=== PATIENT | female | born 1955 | race Caucasian/White ===

== ENCOUNTER 2020-03-30 10:43 | Outpatient (REF) | payer MEDICARE, OTHER, SELFPAY ==
[2020-03-30 11:17] LABS: COVID-19 Test Negative (Negative)
== END 2020-03-30 10:44 | disposition home or self-care (01) ==
LOC: HO.LAB 10:43
PROVIDERS: PCP Internal Medicine; Visit Provider Internal Medicine
DX: Z20.828 Contact with and (suspected) exposure to other viral communicable diseases (principal)
CPT/HCPCS: 87635

== ENCOUNTER 2020-04-23 12:54 | Outpatient (REF) | payer MEDICARE, OTHER, SELFPAY | END 2020-04-23 12:55 | disposition home or self-care (01) | LOC: HO.LAB 12:54 | PROVIDERS: Visit Provider Internal Medicine | DX: Z20.828 Contact with and (suspected) exposure to other viral communicable diseases (principal) | CPT/HCPCS: C9803; U0003 ==

== ENCOUNTER 2020-04-30 16:37 | Inpatient (IN) | payer MEDICARE, OTHER, SELFPAY ==
[2020-04-30 16:46] VITALS: BP 143/72; BP 155/86; PULSE 88; PULSE 98; RESP 108; TEMP 38; O2SAT 92; O2SAT 95
--- NOTE | 2020-04-30 17:18 | CT_ITS ---
EXAMINATION: CT CHEST WITHOUT CONTRAST CLINICAL INFORMATION: Shortness of breath with Covid positive COMPARISON: CT chest 11/20/2015, chest radiograph 03/20/2019 TECHNIQUE: Multidetector volumetric CT imaging of the chest was done. Axial MIP volume rendering provided. Sagittal and coronal reformatted images were obtained. This CT examination was performed using dose optimization techniques as appropriate, variously including the following: *Automated exposure control *Adjustment of mA and/or kV according to patient size (this includes techniques or standardized protocols for targeted exams where dose is matched to indication/reason for exam; i.e. extremities or head) *Use of iterative reconstruction technique DLP: 247 mGy-cm FINDINGS: LUNGS: Scattered groundglass opacities are noted throughout the lungs typical of Covid 19 infection. No solid lung masses or nodules are seen. These findings are all new when compared to the prior study. MEDIASTINUM: The mediastinum is normal. PLEURA: There is no pleural effusion. No pleural mass or thickening. AXILLA: No lymphadenopathy. UPPER ABDOMEN: Unremarkable. OSSEOUS STRUCTURES: Unremarkable. 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
--- NOTE | 2020-04-30 17:19 | ECG_ITS ---
Test Reason : sob Blood Pressure : / mmHG Vent. Rate : 081 BPM Atrial Rate : 081 BPM P-R Int : 154 ms QRS Dur : 082 ms QT Int : 392 ms P-R-T Axes : 025 021 044 degrees QTc Int : 455 ms Normal sinus rhythm Possible Inferior infarct (cited on or before 12-SEP-2013) Nonspecific T wave abnormality Anterior leads Abnormal ECG When compared with ECG of 27-APR-2018 05:57, No significant change was found Referred By: Mireille Raza Electronically Signed By:GALLO OMER MD
[2020-04-30 17:21] VITALS: BP 139/66; PULSE 85; RESP 16; TEMP 38; O2SAT 93
--- NOTE | 2020-04-30 17:26 | ED.SOB ---
HPI - SOB/Dyspnea General Chief Complaint: Dyspnea Stated Complaint: INCREASED SOB, + COVID Time Seen by Provider: 04/30/20 17:18 Source: patient Mode of arrival: ambulatory Limitations: no limitations History of Present Illness HPI Narrative: 64-year-old female with past medical history of migraines, GERD, hyperlipidemia, insomnia, and depression presents with 10 days of cough, shortness of breath, Fevers, chills, sweating, and malaise. Her is currently admitted to ICU and is COVID-19 positive. she is short of breath and hypoxia on minimal exertion. she does have some chest pressure, but does not report any palpitations, abdominal pain, abdominal distention, dysuria, hematuria, and edema. MD elicited complaint: shortness of breath and cough Onset (ago): day(s) (10) Timing: constant Severity: moderate Exacerbating factors: exertion, movement, coughing and deep breaths Relieving factors: nothing Associated symptoms: fever, cough, wheezing, orthopnea, diaphoresis and chest congestion Treatment prior to arrival: bronchodilator Related Data Home oxygen amount: none Home Medications Medication Instructions Recorded Confirmed jxzvywqnci-fhdjhvsriuekh-tcyf 2 cap PO Q4-6H PRN 04/30/20 04/30/20 cyclobenzaprine 5 mg PO TID PRN 04/30/20 04/30/20 erenumab-aooe [Aimovig 140 mg SUBCUT QMONTH 04/30/20 04/30/20 Autoinjector] omeprazole 20 mg PO BID 04/30/20 04/30/20 pramipexole 1 mg PO DAILY 04/30/20 04/30/20 rosuvastatin 40 mg PO DAILY 04/30/20 04/30/20 venlafaxine 75 mg PO DAILY 04/30/20 04/30/20 Previous Rx's Medication Instructions Recorded zolpidem 6.25 mg tablet,extended 6.25 mg PO BEDTIME PRN #90 tab 04/26/20 release,multiphase Allergies Allergy/AdvReac Type Severity Reaction Status Date / Time adhesive [ADHESIVE] Allergy Intermediate RASH Verified 04/06/20 15:54 fluoxetine [Prozac] Allergy Unknown Unknown Verified 04/06/20 15:54 promethazine [Phenergan] Allergy Unknown Fell Verified 04/06/20 15:54 asleep x16hrs and woke up not knowing where she was diphenhydramine AdvReac Unknown MAKES HER Unverified 03/04/20 14:55 [From BENADRYL] EXCITED/HYPED UP Review of Systems Review of Systems: Constitutional: positive fever, chills, malaise, and diaphoresis ENT/Mouth: No Hoarseness, No sore throat, No Rhinorrhea Eyes: No Redness, No Discharge, No Vision Changes Cardiovascular: No Chest Pain, positive SOB, positive Dyspnea on Exertion, No Edema Respiratory: positive Cough, No Sputum, positive Wheezing, Gastrointestinal: No Nausea, No Vomiting, No Diarrhea, No abdominal Pain Genitourinary: No Dysuria, No Hematuria Musculoskeletal: No joint pain, No Myalgias Skin: No rash Neuro: No Weakness, No Numbness, No Headache Psych: No anxiety, depression Heme/Lymph: No Bruising, No Bleeding Endocrine: No Polyuria, No Polydipsia Yes all other systems are reviewed and are negative PMFSH Past Medical History Attestation statement: The following information was validated with the patient. Medical History Cataract High cholesterol Migraine Restless leg syndrome Seizure after head injury Surgical History H/O: hysterectomy Hx of spinal fusion Family History Family History Father Myocardial infarction Mother Depression HTN (hypertension) GERD (gastroesophageal reflux disease) FTT (failure to thrive) in adult Sister Alcoholism Lung cancer Daughter No problems noted. Daughter No problems noted. Brother No problems noted. Brother No problems noted. Brother No problems noted. Social History Social History Alcohol intake: current Alcohol intake frequency: holidays/special occasions only Alcohol type: wine Smoking Status: Never smoker Use of substances other than those prescribed or required for medical reasons: No Advance Directives: No Advance Directives Information Provided: Yes Physical Exam Vital Signs: Vital Signs: Last Vital Signs Temp 99.4 F 04/30/20 20:49 Pulse 84 04/30/20 20:49 Resp 19 04/30/20 20:49 BP 128/76 04/30/20 20:49 Pulse Ox 93 04/30/20 20:49 Body Mass Index 0.0 Appearance: Alert. Oriented X3. moderate distress. Head: Normal external exam. Normocephalic. Atraumatic. No [place] signs noted. No raccoon eyes noted Eyes: PERRLA. EOMI. Conjunctiva and sclera normal. Eyelids normal. ENT: TM's Normal. Pharynx normal. Uvula midline. Moist mucous membranes. No trismus noted. No drooling noted. No muffled voice noted. Neck: Normal inspection. Neck supple. No adenopathy. Thyroid Normal. No meningeal signs. No neck mass noted. CVS: Normal heart rate and rhythm. Heart sound normal. No murmurs noted. Pulses equal to all extremities. Respiratory: tachypneic. dry intermittent cough. Painless inspiration. Breath sounds wheezes and poor air flow to lower lobes. Chest nontender. Abdomen: Soft and nontender. Bowel sounds normal in all 4 quadrants. No distention noted. No organomegaly noted. No visible injury noted. Back: No CVA tenderness. Full range of motion noted. Skin: Skin warm and mild diaphoresis. Normal skin color. Normal skin turgor. No rashes/lesions/lacerations noted. Extremities: No lower extremity edema. Extremities exhibit normal range of motion. Extremities nontender. Neuro: cranial nerves 2-12 intact, no focal neural deficits, strength 5/5 to all extremities, No motor deficit. No sensory deficit. Reflexes normal. Course Course Course Narrative: 64-year-old female with past medical history of migraines, hyperlipidemia presents with 10 days of upper respiratory symptoms consistent with COVID-19. Her is COVID-19 positive, at time of admission she meets SIRS-sepsis criteria. She is febrile at 100.4, with a respiratory rate of 24 and is in orthoptic position. Reevaluation(s) Reevaluation #1: Patient meets sepsis criteria upon admission however this is suspected to be a viral illness and fluid resuscitation will be done gently because she has had multiple COVID-19 contacts, her is currently admitted in the ICU with COVID-19. There is extreme risk of fluid overload causing more harm than good at this time. Time: 17:28 Reevaluation #2: CT scan positive for bilateral pneumonia consistent with COVID-19. patient oxygen saturation decreases to mid to low 80s on ambulation or and minimal exertion. Plan of care is to admit to Intermediate care. Consultations Consultation #1: Valdemar Time: 20:00 MDM - SOB/Dyspnea Differential Diagnosis Differential diagnosis: Likely acute exacerbation of chronic obstructive airways disease and pneumonia Medical Records Attestation: I reviewed the patient's medical records. Lab Data Attestation: I reviewed the patient's lab results. Result diagrams: 04/30/20 19:14 04/30/20 18:35 Labs: Lab Results 04/30/20 04/30/20 04/30/20 Range/Units 18:34 18:35 18:35 WBC Cancelled RBC Cancelled Hgb Cancelled Hct Cancelled MCV Cancelled MCH Cancelled MCHC Cancelled RDW Cancelled Plt Count Cancelled MPV Cancelled Immature Gran % (Auto) Cancelled Neut % (Auto) Cancelled Lymph % (Auto) Cancelled [place] % (Auto) Cancelled Eos % (Auto) Cancelled Baso % (Auto) Cancelled Lymph # (Auto) Cancelled [place] # (Auto) Cancelled Eos # (Auto) Cancelled Baso # (Auto) Cancelled Abs Immat Gran (auto) Cancelled Absolute Neuts (auto) Cancelled Absolute Nucleated RBC Cancelled Nucleated RBC % (auto) Cancelled Sodium (135-145) mmol/L Potassium (3.3-5.1) mmol/l Chloride (96-108) mmol/L Carbon Dioxide (22-29) mmol/L Anion Gap (12-20) BUN (9-16) mg/dL Creatinine (0.5-1.4) mg/dL Estim Creat Clear Calc Estimated GFR Random Glucose (60-115) mg/dL Lactic Acid 0.6 (0.5-2.0) mmol/L Calcium (8.4-10.2) mg/dL Magnesium (1.6-2.6) mg/dL Troponin I High Sens (<3.5-17.0) ng/L B-Natriuretic Peptide (<100) pg/mL Urine Color YELLOW Urine Appearance CLEAR Urine pH 7.0 (5.0-8.0) Ur Specific [place] 1.010 (1.005-1.025) Urine Protein NEG (NEG-TRACE) MG/DL Urine Glucose (UA) NEG (NEG) MG/DL Urine Ketones NEG (NEG) MG/DL Urine Blood NEG (NEG) Urine Nitrite NEG (NEG) Ur Leukocyte Esterase NEG (NEG) Coronavirus (PCR) (Negative) Influenza Type A (PCR) (Negative) Influenza Type B (PCR) (Negative) RSV RNA Qual (PCR) (Negative) 04/30/20 04/30/20 04/30/20 Range/Units 18:35 18:35 18:35 WBC RBC Hgb Hct MCV MCH MCHC RDW Plt Count MPV Immature Gran % (Auto) Neut % (Auto) Lymph % (Auto) [place] % (Auto) Eos % (Auto) Baso % (Auto) Lymph # (Auto) [place] # (Auto) Eos # (Auto) Baso # (Auto) Abs Immat Gran (auto) Absolute Neuts (auto) Absolute Nucleated RBC Nucleated RBC % (auto) Sodium 142 (135-145) mmol/L Potassium 4.0 (3.3-5.1) mmol/l Chloride 112 H (96-108) mmol/L Carbon Dioxide 21 L (22-29) mmol/L Anion Gap 13 (12-20) BUN 12 (9-16) mg/dL Creatinine 0.68 (0.5-1.4) mg/dL Estim Creat Clear Calc 2.9 Estimated GFR > 60 Random Glucose 77 (60-115) mg/dL Lactic Acid (0.5-2.0) mmol/L Calcium 7.8 L (8.4-10.2) mg/dL Magnesium 1.7 (1.6-2.6) mg/dL Troponin I High Sens 3.5 (<3.5-17.0) ng/L B-Natriuretic Peptide 18 (<100) pg/mL Urine Color Urine Appearance Urine pH (5.0-8.0) Ur Specific [place] (1.005-1.025) Urine Protein (NEG-TRACE) MG/DL Urine Glucose (UA) (NEG) MG/DL Urine Ketones (NEG) MG/DL Urine Blood (NEG) Urine Nitrite (NEG) Ur Leukocyte Esterase (NEG) Coronavirus (PCR) (Negative) Influenza Type A (PCR) (Negative) Influenza Type B (PCR) (Negative) RSV RNA Qual (PCR) (Negative) 04/30/20 04/30/20 Range/Units 18:35 19:14 WBC 4.1 L RBC 4.24 Hgb 13.5 Hct 41.5 MCV 97.9 MCH 31.8 MCHC 32.5 RDW 12.4 Plt Count 120 L MPV 9.4 Immature Gran % (Auto) 0.2 Neut % (Auto) 76.1 H Lymph % (Auto) 19.1 L [place] % (Auto) 4.4 Eos % (Auto) 0.2 Baso % (Auto) 0.0 Lymph # (Auto) 0.8 L [place] # (Auto) 0.2 Eos # (Auto) 0.0 Baso # (Auto) 0.0 Abs Immat Gran (auto) 0.01 Absolute Neuts (auto) 3.1 Absolute Nucleated RBC 0.000 Nucleated RBC % (auto) 0.0 Sodium (135-145) mmol/L Potassium (3.3-5.1) mmol/l Chloride (96-108) mmol/L Carbon Dioxide (22-29) mmol/L Anion Gap (12-20) BUN (9-16) mg/dL Creatinine (0.5-1.4) mg/dL Estim Creat Clear Calc Estimated GFR Random Glucose (60-115) mg/dL Lactic Acid (0.5-2.0) mmol/L Calcium (8.4-10.2) mg/dL Magnesium (1.6-2.6) mg/dL Troponin I High Sens (<3.5-17.0) ng/L B-Natriuretic Peptide (<100) pg/mL Urine Color Urine Appearance Urine pH (5.0-8.0) Ur Specific [place] (1.005-1.025) Urine Protein (NEG-TRACE) MG/DL Urine Glucose (UA) (NEG) MG/DL Urine Ketones (NEG) MG/DL Urine Blood (NEG) Urine Nitrite (NEG) Ur Leukocyte Esterase (NEG) Coronavirus (PCR) POSITIVE A (Negative) Influenza Type A (PCR) NEGATIVE (Negative) Influenza Type B (PCR) NEGATIVE (Negative) RSV RNA Qual (PCR) NEGATIVE (Negative) Imaging Data CT scan - chest: Attestation: I personally reviewed and interpreted this imaging study as follows: Radiologist's impression: FINDINGS: LUNGS: Scattered groundglass opacities are noted throughout the lungs typical of Covid 19 infection. No solid lung masses or nodules are seen. These findings are all new when compared to the prior study. MEDIASTINUM: The mediastinum is normal. PLEURA: There is no pleural effusion. No pleural mass or thickening. AXILLA: No lymphadenopathy. UPPER ABDOMEN: Unremarkable. OSSEOUS STRUCTURES: Unremarkable. 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 ECG Data Attestation: I personally reviewed and interpreted this ECG as follows: ECG interpretation date: 04/30/20 ECG interpretation time: 18:45 Prior ECG tracings: available for review Interpretation: Vent. Rate : 081 BPM Atrial Rate : 081 BPM P-R Int : 154 ms QRS Dur : 082 ms QT Int : 392 ms P-R-T Axes : 025 021 044 degrees QTc Int : 455 ms Normal sinus rhythm Possible Inferior infarct (cited on or before 12-SEP-2013) Abnormal ECG When compared with ECG of 27-APR-2018 05:57, No significant change was found Critical Care Time Critical Care Time Critical Care Time: Yes Total Critical Care Time: 60 Attestation: I have personally provided critical care time exclusive of time spent on separately billable procedures. Time includes review of laboratory data, radiology results, discussion with consultants, and monitoring for potential decompensation. Interventions were performed as documented. Discharge Plan Discharge Clinical Impression: Hypoxia, COVID-19 Patient Disposition: Admitted As Inpatient
[2020-04-30 18:11] VITALS: BP 126/76; PULSE 83; RESP 25; TEMP 38; O2SAT 94
[2020-04-30] MEDS: Azithromycin 500 MG TABLET PO (18:58)
[2020-04-30] MEDS: methylPREDNISolone Sod Succ/PF 125 MG/2 ML VIAL IVPUSH (18:58)
[2020-04-30] MEDS: Acetaminophen 325 MG TABLET 975 MG PO (18:58)
[2020-04-30] MEDS: cefTRIAXone sodium 1 GM in 0.9 % Sodium Chloride 50 ML IV (18:58)
[2020-04-30] MEDS: 0.9 % Sodium Chloride 1,000 ML 999 ML IVCONT (18:59)
[2020-04-30 19:01] LABS: Glucose Urine UA NEG (NEG); Leukocyte Esterase Urine NEG (NEG); Nitrite Urine NEG (NEG); Urine Blood NEG (NEG); Urine Ketones NEG (NEG); Urine Protein NEG (NEG-TRACE)
[2020-04-30 19:02] LABS: Anion Gap 13 (12-20); Blood Urea Nitrogen 12 mg/dL (9-16); Calcium 7.8 mg/dL (8.4-10.2); Carbon Dioxide 21 mmol/L (22-29); Chloride 112 mmol/L (96-108); Creatinine Clr Calc Pharmacy 2.9; Estimated Glomerular Filt Rate > 60; Glucose Random 77 mg/dL (60-115); Sodium 142 mmol/L (135-145)
[2020-04-30 19:03] LABS: Magnesium 1.7 mg/dL (1.6-2.6)
[2020-04-30 19:07] LABS: Appearance Urine CLEAR; Color Urine YELLOW
[2020-04-30 19:07] LABS: Lactic Acid 0.6 mmol/L (0.5-2.0)
[2020-04-30 19:08] LABS: B Type Natriuretic Peptide 18 pg/mL (<100); Troponin-I High Sensitivity 3.5 ng/L (<3.5-17.0)
[2020-04-30 19:19] LABS: MANUAL DIFF FLAG NO
[2020-04-30 19:21] LABS: Eosinophils Percent Auto 0.2 % (0-4); Hematocrit 41.5 % (37-47); Hemoglobin 13.5 g/dl (12.0-16.0); Imm Gran Abs Auto 0.01 X10*3/uL (0.00-0.03); Imm Gran Pct Auto 0.2 % (0.0-0.4); Lymphocytes Absolute Auto 0.8 X10*3/uL (1.2-4.9); Lymphocytes Percent Auto 19.1 % (20-40); Mean Corpuscular HGB Conc 32.5 g/dl (31.0-35.0); Mean Corpuscular Hemoglobin 31.8 pg (27.0-33.0); Mean Corpuscular Volume 97.9 fL (80-98); Mean Platelet Volume 9.4 fL (9.4-12.3); Monocytes Absolute Auto 0.2 X10*3/uL (0.1-1.2); Monocytes Percent Auto 4.4 % (2-11); Neutrophils Absolute Auto 3.1 X10*3/uL (2.0-8.3); Neutrophils Percent Auto 76.1 % (45-73); Platelet Count 120 X10*3/uL (160-400); Red Blood Count 4.24 X10*6/uL (4.20-5.50); Red Cell Distribution Width 12.4 % (11.0-16.0); White Blood Count 4.1 X10*3/uL (4.8-10.8)
[2020-04-30 19:27] LABS: Influenza A PCR NEGATIVE (Negative); Influenza B PCR NEGATIVE (Negative); Resp Syncy Virus RNA Qual PCR NEGATIVE (Negative); SARS COV2 PCR INHOUSE POSITIVE (Negative)
[2020-04-30 20:49] VITALS: BP 128/76; PULSE 84; RESP 19; TEMP 37.4; O2SAT 93
[2020-05-01] VITALS (7 sets, daily range): BP systolic 118–142; BP diastolic 56–74; PULSE 76–84; RESP 16–18; TEMP 36.3–37; O2SAT 93–96; BMI 32.7
--- NOTE | 2020-05-01 00:26 | PC.NURSE ---
pt [id number] of a headache, feels like a migraine. pt points out that her right eyelid is closed, which usually happens when she has a migraine. pt has no other neuro defecit. pt took 2 of her fioricet that she had helen her for relief.
--- NOTE | 2020-05-01 01:01 | PC.NURSE ---
PT'S ROOM AIR SATURATION 93%, NON LABORED UNLESS SHE IS AMBULATORY. PT PLACED ON 1 LPM OXYGEN, REPORTS FEELING SHORT OF BREATH.
--- NOTE | 2020-05-01 01:40 | PC.NURSE ---
PT'S SPO2 IMPROVED TO 95% ON 1 LPM. PT'S HEADACHE AND EYELID DROOP ON RIGHT IMPROVED. PT FEELS BETTER WITH OXYGEN.
--- NOTE | 2020-05-01 02:07 | P.HPHOSP_ITS ---
History of Present Illness Date of Service: 04/30/20 Chief Complaint: SOB This is a 64-year-old female with past medical history of migraine, who presents to the hospital complaints of cough, generalized weakness, and dehydration. Patient reports that about a week ago she started developing a cough that has become so severe that she is getting back pain from it, generalized weakness, and loss of appetite. Patient's was diagnosed with COVID and is currently inpatient. She reports that she has also been hypoxic, satting between 87-94%. She has had chills with no fever, some nausea with no vomitin g, no abdominal pain, she also has diarrhea that started today, no constipation, no urinary symptoms. No lower extremity edema. patient is an ICU nurse here at [facility] On arrival to the ED hemodynamically stable but noted to have hypoxia on ambulation dropping to the high 80s, labs are significant for WBC count of 4.1 labs are significant for WBC count of 4.1, otherwise unremarkable. Patient is COVID positive. 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 Daughter No problems noted. Brother No problems noted. Brother No problems noted. Brother No problems noted. Surgical History H/O: hysterectomy Hx of spinal fusion Social History Household Members: Spouse Housing: House Do you presently have visiting nurse or other home services: No Alcohol intake: current Alcohol intake frequency: holidays/special occasions only Alcohol type: wine Smoking Status: Never smoker Use of substances other than those prescribed or required for medical reasons: No Have you been hit, kicked, punched, or otherwise hurt by someone within the past year? If so, by whom?: No Do you feel safe in your current relationship?: Yes Is there a partner from a previous relationship who is making you feel unsafe now?: No Are you made to feel afraid or neglected: No Advance Directives: No Advance Directives Information Provided: Yes Do you have thoughts of harming others: None Do you have a plan to hurt others: No Plan Recently lost weight without trying: No Meds Allergies Allergy/AdvReac Type Severity Reaction Status Date / Time adhesive [ADHESIVE] Allergy Intermediate RASH Verified 05/01/20 03:24 fluoxetine [Prozac] Allergy Unknown Unknown Verified 05/01/20 03:24 promethazine [Phenergan] Allergy Unknown Fell Verified 05/01/20 03:24 asleep x16hrs and woke up not knowing where she was diphenhydramine AdvReac Unknown MAKES HER Verified 05/01/20 03:24 [From BENADRYL] EXCITED/HYPED UP Home Medications Medication Instructions Recorded Confirmed Type amsnspdtwj-hlhqqcrfuremv-rvhs 2 cap PO Q4-6H PRN 04/30/20 05/01/20 History cyclobenzaprine 5 mg PO TID PRN 04/30/20 05/01/20 History erenumab-aooe [Aimovig 140 mg SUBCUT QMONTH 04/30/20 05/01/20 History Autoinjector] omeprazole 20 mg PO BID 04/30/20 05/01/20 History pramipexole 1 mg PO DAILY 04/30/20 05/01/20 History rosuvastatin 40 mg PO DAILY 04/30/20 05/01/20 History venlafaxine 75 mg PO DAILY 04/30/20 05/01/20 History Physical Exam Vital Signs and Narrative: Vital Signs: Last Vital Signs Temp 99.4 F 04/30/20 20:49 Pulse 80 05/01/20 00:23 Resp 16 05/01/20 00:23 BP 118/69 05/01/20 00:23 Pulse Ox 94 05/01/20 00:23 Body Mass Index 0.0 Const: General: cooperative and no acute distress Orientation/consciousness: patient oriented x3 Eyes: General: appearance normal, both eyes and all related structures Pupils: Equal, round and reactive pupils present Resp: Effort & Inspection: normal respiratory effort and able to speak in c omplete sentences Auscultation: rhonchi Cardio: Rate: regular rate Rhythm: regular rhythm GI: Palpation (GI): Soft to palpation Auscultation: normal bowel sounds Skin: General skin exam: no rashes or lesions noted Neuro: General: patient oriented x3 Cranial nerves: Yes Equal, round and reactive pupils present Cognition (Neuro): normal cognition Extrem: General: Yes normal to inspection and Yes no pedal edema Results Labs CBC and Chem 7: 04/30/20 19:14 04/30/20 18:35 Labs: Laboratory Results - last 24 hr 04/30/20 04/30/20 04/30/20 18:34 18:35 18:35 MCV Cancelled MCH Cancelled MCHC Cancelled RDW Cancelled Plt Count Cancelled MPV Cancelled Immature Gran % (Auto) Cancelled Neut % (Auto) Cancelled Lymph % (Auto) Cancelled [place] % (Auto) Cancelled Eos % (Auto) Cancelled Baso % (Auto) Cancelled Lymph # (Auto) Cancelled [place] # (Auto) Cancelled Eos # (Auto) Cancelled Baso # (Auto) Cancelled Abs Immat Gran (auto) Cancelled Absolute Neuts (auto) Cancelled Absolute Nucleated RBC Cancelled Nucleated RBC % (auto) Cancelled Anion Gap Estim Creat Clear Calc Estimated GFR Random Glucose Lactic Acid 0.6 Calcium Magnesium Troponin I High Sens B-Natriuretic Peptide Urine Color YELLOW Urine Appearance CLEAR Urine pH 7.0 Ur Specific [place] 1.010 Urine Protein NEG Urine Glucose (UA) NEG Urine Ketones NEG Urine Blood NEG Urine Nitrite NEG Ur Leukocyte Esterase NEG Coronavirus (PCR) Influenza Type A (PCR) Influenza Type B (PCR) RSV RNA Qual (PCR) 04/30/20 04/30/20 04/30/20 18:35 18:35 18:35 MCV MCH MCHC RDW Plt Count MPV Immature Gran % (Auto) Neut % (Auto) Lymph % (Auto) [place] % (Auto) Eos % (Auto) Baso % (Auto) Lymph # (Auto) [place] # (Auto) Eos # (Auto) Baso # (Auto) Abs Immat Gran (auto) Absolute Neuts (auto) Absolute Nucleated RBC Nucleated RBC % (auto) Anion Gap 13 Estim Creat Clear Calc 2.9 Estimated GFR > 60 Random Glucose 77 Lactic Acid Calcium 7.8 L Magnesium 1.7 Troponin I High Sens 3.5 B-Natriuretic Peptide 18 Urine Color Urine Appearance Urine pH Ur Specific [place] Urine Protein Urine Glucose (UA) Urine Ketones Urine Blood Urine Nitrite Ur Leukocyte Esterase Coronavirus (PCR) Influenza Type A (PCR) Influenza Type B (PCR) RSV RNA Qual (PCR) 04/30/20 04/30/20 18:35 19:14 MCV 97.9 MCH 31.8 MCHC 32.5 RDW 12.4 Plt Count 120 L MPV 9.4 Immature Gran % (Auto) 0.2 Neut % (Auto) 76.1 H Lymph % (Auto) 19.1 L [place] % (Auto) 4.4 Eos % (Auto) 0.2 Baso % (Auto) 0.0 Lymph # (Auto) 0.8 L [place] # (Auto) 0.2 Eos # (Auto) 0.0 Baso # (Auto) 0.0 Abs Immat Gran (auto) 0.01 Absolute Neuts (auto) 3.1 Absolute Nucleated RBC 0.000 Nucleated RBC % (auto) 0.0 Anion Gap Estim Creat Clear Calc Estimated GFR Random Glucose Lactic Acid Calcium Magnesium Troponin I High Sens B-Natriuretic Peptide Urine Color Urine Appearance Urine pH Ur Specific [place] Urine Protein Urine Glucose (UA) Urine Ketones Urine Blood Urine Nitrite Ur Leukocyte Esterase Coronavirus (PCR) POSITIVE A Influenza Type A (PCR) NEGATIVE Influenza Type B (PCR) NEGATIVE RSV RNA Qual (PCR) NEGATIVE Imaging Radiologist's Impressions: Impressions Chest CT 04/30/20 17:18 IMPRESSION: Scattered groundglass densities throughout both lungs typical of Covid 19 pulmonary disease. 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
[2020-05-01] MEDS: Enoxaparin Sodium 40 MG/0.4 ML SYRINGE SUBCUT (03:25)
[2020-05-01] MEDS: dexAMETHasone sod phosphate 4 MG/ML VIAL IVPUSH (03:25)
[2020-05-01] MEDS: ondansetron HCL 4 MG/2 ML VIAL IVPUSH (03:48)
[2020-05-01] MEDS: Omeprazole 20 MG CAPSULE.DR PO ×2 (06:25→15:30)
[2020-05-01] MEDS: dexAMETHasone sod phosphate 4 MG/ML VIAL 6 MG IVPUSH (08:17)
[2020-05-01] MEDS: 0.9 % Sodium Chloride Flush 3 ML SYRINGE IVFLUSH ×3 (08:18→21:09)
[2020-05-01] MEDS: Venlafaxine HCl ER 75 MG CAP.ER.24H PO (08:18)
[2020-05-01] MEDS: Pramipexole Di-HCL 1 MG TABLET PO (08:18)
--- NOTE | 2020-05-01 11:25 | P.PNIM_ITS ---
Subjective Subjective Date of Service: 05/01/20 Interval History: C/o dyspnea and cough. Tmax 100.4 yesterday evening. She is roomed with her , who is on HFNC + NRB. Physical Exam Vital Signs: Vital Signs: Last Vital Signs Temp 97.9 F 05/01/20 07:58 Pulse 81 05/01/20 07:58 Resp 18 05/01/20 07:58 BP 142/69 H 05/01/20 07:58 Pulse Ox 93 05/01/20 07:58 Body Mass Index 32.7 Gen: in no acute distress HEENT: sclera anicteric, moist mucus membranes Neck: supple Lungs: no respiratory distress, auscultation deferred due to COVID-19 Heart: normal peripheral pulses Abd: soft, non-tender, non-distended Ext: no cyanosis, clubbing, or edema Skin: warm/well-perfused Neuro: alert and oriented x3, no focal findings Psych: appropriate affect Objective Data Current Medications Generic Name Dose Route Start Last Admin Trade Name Freq PRN Reason Stop Dose Admin Acetaminophen 650 mg 05/01/20 02:50 Acetaminophen 325 Mg Tablet PO Q6H PRN Pain, Mild (Pain Scale 1-3) Acetaminophen/Butalbital/Caffeine 2 tab 05/01/20 03:59 05/01/20 10:43 Butalb/Acetamin/Caff 50/325/40 1 Tab Tablet PO 2 tab Q4H PRN Administration Headache Atorvastatin Calcium 80 mg 05/01/20 21:00 Atorvastatin Calcium 80 Mg Tablet PO BEDTIME ALYSHA Cyclobenzaprine HCl 5 mg 05/01/20 03:59 Cyclobenzaprine Hcl 5 Mg Tablet PO TID PRN Muscle Spasm Dexamethasone Sodium Phosphate 6 mg 05/01/20 09:00 05/01/20 08:17 Dexamethasone Sod Phosphate 4 Mg/Ml Vial IVPUSH 05/09/20 09:01 6 mg DAILY ALYSHA Administration Enoxaparin Sodium 40 mg 05/01/20 02:50 05/01/20 03:25 Enoxaparin Sodium 40 Mg/0.4 Ml Syringe SUBCUT 40 mg Q24H ALYSHA Administration Non-Formulary Medication 140 mg 05/01/20 04:00 Erenumab-Aooe [Aimovig Autoinjector] SUBCUT QMONTH ALYSHA Omeprazole 20 mg 05/01/20 06:30 05/01/20 06:25 Omeprazole 20 Mg Capsule. PO 20 mg BID@1656,6584 ALYSHA Administration Ondansetron HCl 4 mg 05/01/20 02:50 05/01/20 03:48 Ondansetron Hcl 4 Mg/2 Ml Vial IVPUSH 4 mg Q8H PRN Administration Nausea and Vomiting Oxycodone HCl 5 mg 05/01/20 02:50 Oxycodone Hcl Immed Release 5 Mg Tablet PO Q6H PRN Pain, Severe (Pain Scale 7-10) Pharmacy Consult 1 each 04/30/20 23:36 Consult Rx Perform Med Rec MISCELLANE ONCE PRN Consult order Pramipexole Dihydrochloride 1 mg 05/01/20 09:00 05/01/20 08:18 Pramipexole Di-Hcl 1 Mg Tablet PO 1 mg DAILY ALYSHA Administration Sodium Chloride 3 ml 05/01/20 08:00 05/01/20 08:18 0.9 % Sodium Chloride Flush 3 Ml Syringe IVFLUSH 3 ml QSHIFT ALYSHA Administration Venlafaxine HCl 75 mg 05/01/20 09:00 05/01/20 08:18 Venlafaxine Hcl Er 75 Mg Cap.Er.24h PO 75 mg DAILY ALYSHA Administration Zolpidem Tartrate 5 mg 05/01/20 04:10 Zolpidem Tartrate 5 Mg Tablet PO BEDTIME PRN Sleep Labs CBC & Chem 7: 04/30/20 19:14 04/30/20 18:35 Labs: Laboratory Results - last 24 hr 04/30/20 04/30/20 04/30/20 18:34 18:35 18:35 WBC Cancelled RBC Cancelled Hgb Cancelled Hct Cancelled MCV Cancelled MCH Cancelled MCHC Cancelled RDW Cancelled Plt Count Cancelled MPV Cancelled Immature Gran % (Auto) Cancelled Neut % (Auto) Cancelled Lymph % (Auto) Cancelled Dane % (Auto) Cancelled Eos % (Auto) Cancelled Baso % (Auto) Cancelled Lymph # (Auto) Cancelled Dane # (Auto) Cancelled Eos # (Auto) Cancelled Baso # (Auto) Cancelled Abs Immat Gran (auto) Cancelled Absolute Neuts (auto) Cancelled Absolute Nucleated RBC Cancelled Nucleated RBC % (auto) Cancelled Sodium Potassium Chloride Carbon Dioxide Anion Gap BUN Creatinine Estim Creat Clear Calc Estimated GFR Random Glucose Lactic Acid 0.6 Calcium Magnesium Troponin I High Sens B-Natriuretic Peptide Urine Color YELLOW Urine Appearance CLEAR Urine pH 7.0 Ur Specific [place] 1.010 Urine Protein NEG Urine Glucose (UA) NEG Urine Ketones NEG Urine Blood NEG Urine Nitrite NEG Ur Leukocyte Esterase NEG Coronavirus (PCR) Influenza Type A (PCR) Influenza Type B (PCR) RSV RNA Qual (PCR) 04/30/20 04/30/20 04/30/20 18:35 18:35 18:35 WBC RBC Hgb Hct MCV MCH MCHC RDW Plt Count MPV Immature Gran % (Auto) Neut % (Auto) Lymph % (Auto) Dane % (Auto) Eos % (Auto) Baso % (Auto) Lymph # (Auto) Dane # (Auto) Eos # (Auto) Baso # (Auto) Abs Immat Gran (auto) Absolute Neuts (auto) Absolute Nucleated RBC Nucleated RBC % (auto) Sodium 142 Potassium 4.0 Chloride 112 H Carbon Dioxide 21 L Anion Gap 13 BUN 12 Creatinine 0.68 Estim Creat Clear Calc 2.9 Estimated GFR > 60 Random Glucose 77 Lactic Acid Calcium 7.8 L Magnesium 1.7 Troponin I High Sens 3.5 B-Natriuretic Peptide 18 Urine Color Urine Appearance Urine pH Ur Specific [place] Urine Protein Urine Glucose (UA) Urine Ketones Urine Blood Urine Nitrite Ur Leukocyte Esterase Coronavirus (PCR) Influenza Type A (PCR) Influenza Type B (PCR) RSV RNA Qual (PCR) 04/30/20 04/30/20 18:35 19:14 WBC 4.1 L RBC 4.24 Hgb 13.5 Hct 41.5 MCV 97.9 MCH 31.8 MCHC 32.5 RDW 12.4 Plt Count 120 L MPV 9.4 Immature Gran % (Auto) 0.2 Neut % (Auto) 76.1 H Lymph % (Auto) 19.1 L Dane % (Auto) 4.4 Eos % (Auto) 0.2 Baso % (Auto) 0.0 Lymph # (Auto) 0.8 L Dane # (Auto) 0.2 Eos # (Auto) 0.0 Baso # (Auto) 0.0 Abs Immat Gran (auto) 0.01 Absolute Neuts (auto) 3.1 Absolute Nucleated RBC 0.000 Nucleated RBC % (auto) 0.0 Sodium Potassium Chloride Carbon Dioxide Anion Gap BUN Creatinine Estim Creat Clear Calc Estimated GFR Random Glucose Lactic Acid Calcium Magnesium Troponin I High Sens B-Natriuretic Peptide Urine Color Urine Appearance Urine pH Ur Specific [place] Urine Protein Urine Glucose (UA) Urine Ketones Urine Blood Urine Nitrite Ur Leukocyte Esterase Coronavirus (PCR) POSITIVE A Influenza Type A (PCR) NEGATIVE Influenza Type B (PCR) NEGATIVE RSV RNA Qual (PCR) NEGATIVE Impressions Chest CT 04/30/20 17:18 IMPRESSION: Scattered groundglass densities throughout both lungs typical of Covid 19 pulmonary disease. Assessment and Plan (1) COVID-19: Status: Acute (2) Hypoxia: Status: Acute Assessment and Plan: hospital d#1 64yo F admitted for hypoxia from COVID-19 pneumonia # COVID-19 pneumonia - dexamethasone d#06/27, trend inflammatory markers, maintain isolation # acute hypoxic respiratory failure - supplemental O2, wean as tolerated, encouraged self-proning # migraines - prn Fioricet. on Aimovig SQ injection as outpt # GERD - omeprazole # RLS - pramipexole # HLD - continue statin # depression - continue venlafaxine, zolpidem # VTE ppx - LMWH
[2020-05-01] MEDS: HYDROcodone/Homat 5/1.5/5 ML 5 ML SYRUP PO ×2 (15:30→21:08)
--- NOTE | 2020-05-01 15:48 | MHC.CM.PN ---
CM attempted to contact pt on her cell phone ([phone]). Call went to . Message left requesting a return call. Per pt records, she lives at home with her and is independent at baseline. Pt has no in home services. Pt does have a HCP however it is her who is also inpatient at this time. CM will completed [employer]ULT [employer] using EMR and try to contact pt again tomorrow.
[2020-05-01] MEDS: Acetaminophen 325 MG TABLET 650 MG PO (21:07)
[2020-05-01] MEDS: Atorvastatin Calcium 80 MG TABLET PO (21:08)
[2020-05-01] MEDS: Zolpidem Tartrate 5 MG TABLET PO (21:08)
[2020-05-02] VITALS: BP 111/62; PULSE 71; RESP 18; TEMP 36.2; O2SAT 91
[2020-05-02 03:21] VITALS: BP 125/61; PULSE 70; RESP 18; TEMP 36.1; O2SAT 94
[2020-05-02] MEDS: Enoxaparin Sodium 40 MG/0.4 ML SYRINGE SUBCUT (03:52)
[2020-05-02] MEDS: Acetaminophen 325 MG TABLET 650 MG PO (03:53)
[2020-05-02 05:25] LABS: MANUAL DIFF FLAG NO
[2020-05-02 05:28] LABS: Basophils Percent Auto 0.1 % (0-2); Hematocrit 41.5 % (37-47); Hemoglobin 13.8 g/dl (12.0-16.0); Imm Gran Abs Auto 0.05 X10*3/uL (0.00-0.03); Imm Gran Pct Auto 0.5 % (0.0-0.4); Lymphocytes Absolute Auto 1.1 X10*3/uL (1.2-4.9); Lymphocytes Percent Auto 11.7 % (20-40); Mean Corpuscular HGB Conc 33.3 g/dl (31.0-35.0); Mean Corpuscular Hemoglobin 32.1 pg (27.0-33.0); Mean Corpuscular Volume 96.5 fL (80-98); Mean Platelet Volume 9.4 fL (9.4-12.3); Monocytes Absolute Auto 0.3 X10*3/uL (0.1-1.2); Neutrophils Absolute Auto 7.9 X10*3/uL (2.0-8.3); Neutrophils Percent Auto 84.7 % (45-73); Platelet Count 179 X10*3/uL (160-400); Red Cell Distribution Width 12.3 % (11.0-16.0); White Blood Count 9.4 X10*3/uL (4.8-10.8)
[2020-05-02 05:37] LABS: D Dimer 442 NG/ML
[2020-05-02 05:53] LABS: Anion Gap 11 (12-20); Blood Urea Nitrogen 16 mg/dL (9-16); Calcium 8.4 mg/dL (8.4-10.2); Carbon Dioxide 23 mmol/L (22-29); Chloride 112 mmol/L (96-108); Creatinine Clr Calc Pharmacy 75.2; Estimated Glomerular Filt Rate > 60; Glucose Random 122 mg/dL (60-115); Potassium 3.8 mmol/l (3.3-5.1); Sodium 142 mmol/L (135-145)
[2020-05-02 05:54] LABS: C Reactive Protein 0.75 mg/dL (< or = 0.50); Lactate Dehydrogenase 248 U/L (122-220)
[2020-05-02 06:11] LABS: Procalcitonin 0.06 ng/mL
[2020-05-02 06:16] LABS: Ferritin 155 ng/mL (10-250)
[2020-05-02] MEDS: Omeprazole 20 MG CAPSULE.DR PO ×2 (06:18→15:18)
[2020-05-02] MEDS: Venlafaxine HCl ER 75 MG CAP.ER.24H PO (07:33)
[2020-05-02] MEDS: Pramipexole Di-HCL 1 MG TABLET PO (07:33)
[2020-05-02] MEDS: dexAMETHasone sod phosphate 4 MG/ML VIAL 6 MG IVPUSH (07:33)
[2020-05-02] MEDS: 0.9 % Sodium Chloride Flush 3 ML SYRINGE IVFLUSH ×3 (07:33→21:23)
[2020-05-02 07:38] VITALS: BP 126/77; PULSE 74; RESP 18; TEMP 36.5; O2SAT 95
[2020-05-02] MEDS: oxyCODONE HCl Immed Release 5 MG TABLET PO ×2 (07:43→15:18)
--- NOTE | 2020-05-02 12:22 | P.PNIM_ITS ---
Subjective Subjective Date of Service: 05/02/20 Interval History: dyspnea and cough improved afebrile Physical Exam Vital Signs: Vital Signs: Last Vital Signs Temp 97.7 F 05/02/20 07:38 Pulse 74 05/02/20 07:38 Resp 18 05/02/20 07:38 BP 126/77 05/02/20 07:38 Pulse Ox 95 05/02/20 07:38 Body Mass Index 32.7 Gen: in no acute distress HEENT: sclera anicteric, moist mucus membranes Neck: supple Lungs: no respiratory distress, auscultation deferred due to COVID-19 Heart: normal peripheral pulses Abd: soft, non-tender, non-distended Ext: no cyanosis, clubbing, or edema Skin: warm/well-perfused Neuro: alert and oriented x3, no focal findings Psych: appropriate affect Objective Data Current Medications Generic Name Dose Route Start Last Admin Trade Name Freq PRN Reason Stop Dose Admin Acetaminophen 650 mg 05/01/20 02:50 05/02/20 03:53 Acetaminophen 325 Mg Tablet PO 650 mg Q6H PRN Administration Pain, Mild (Pain Scale 1-3) Acetaminophen/Butalbital/Caffeine 2 tab 05/01/20 03:59 05/01/20 10:43 Butalb/Acetamin/Caff 50/325/40 1 Tab Tablet PO 2 tab Q4H PRN Administration Headache Atorvastatin Calcium 80 mg 05/01/20 21:00 05/01/20 21:08 Atorvastatin Calcium 80 Mg Tablet PO 80 mg BEDTIME ALYSHA Administration Cyclobenzaprine HCl 5 mg 05/01/20 03:59 Cyclobenzaprine Hcl 5 Mg Tablet PO TID PRN Muscle Spasm Dexamethasone Sodium Phosphate 6 mg 05/01/20 09:00 05/02/20 07:33 Dexamethasone Sod Phosphate 4 Mg/Ml Vial IVPUSH 05/09/20 09:01 6 mg DAILY ALYSHA Administration Enoxaparin Sodium 40 mg 05/01/20 02:50 05/02/20 03:52 Enoxaparin Sodium 40 Mg/0.4 Ml Syringe SUBCUT 40 mg Q24H ALYSHA Administration Hydrocodone Bit/Homatropine Methylb 5 ml 05/01/20 15:07 05/01/20 21:08 Hydrocodone/Homat 5/1.5/5 Ml 5 Ml Syrup PO 5 ml Q4H PRN Administration cough Non-Formulary Medication 140 mg 05/01/20 04:00 Erenumab-Aooe [Aimovig Autoinjector] SUBCUT QMONTH [facility] Omeprazole 20 mg 05/01/20 06:30 05/02/20 06:18 Omeprazole 20 Mg Capsule.Dr PO 20 mg BID@0630,1630 ALYSHA Administration Ondansetron HCl 4 mg 05/01/20 02:50 05/01/20 03:48 Ondansetron Hcl 4 Mg/2 Ml Vial IVPUSH 4 mg Q8H PRN Administration Nausea and Vomiting Oxycodone HCl 5 mg 05/01/20 02:50 05/02/20 07:43 Oxycodone Hcl Immed Release 5 Mg Tablet PO 5 mg Q6H PRN Administration Pain, Severe (Pain Scale 7-10) Pharmacy Consult 1 each 04/30/20 23:36 Consult Rx Perform Med Rec MISCELLANE ONCE PRN Consult order Pramipexole Dihydrochloride 1 mg 05/01/20 09:00 05/02/20 07:33 Pramipexole Di-Hcl 1 Mg Tablet PO 1 mg DAILY [facility] Administration Sodium Chloride 3 ml 05/01/20 08:00 05/02/20 07:33 0.9 % Sodium Chloride Flush 3 Ml Syringe IVFLUSH 3 ml QSHIFT [facility] Administration Venlafaxine HCl 75 mg 05/01/20 09:00 05/02/20 07:33 Venlafaxine Hcl Er 75 Mg Cap.Er.24h PO 75 mg DAILY [facility] Administration Zolpidem Tartrate 5 mg 05/01/20 04:10 05/01/20 21:08 Zolpidem Tartrate 5 Mg Tablet PO 5 mg BEDTIME PRN Administration Sleep Labs CBC & Chem 7: 05/02/20 04:50 05/02/20 04:50 Labs: Laboratory Results - last 24 hr 05/02/20 05/02/20 05/02/20 04:50 04:50 04:50 WBC 9.4 RBC 4.30 Hgb 13.8 Hct 41.5 MCV 96.5 MCH 32.1 MCHC 33.3 RDW 12.3 Plt Count 179 D MPV 9.4 Immature Gran % (Auto) 0.5 H Neut % (Auto) 84.7 H Lymph % (Auto) 11.7 L [place] % (Auto) 3.0 Eos % (Auto) 0.0 Baso % (Auto) 0.1 Lymph # (Auto) 1.1 L [place] # (Auto) 0.3 Eos # (Auto) 0.0 Baso # (Auto) 0.0 Abs Immat Gran (auto) 0.05 H Absolute Neuts (auto) 7.9 Absolute Nucleated RBC 0.000 Nucleated RBC % (auto) 0.0 D-Dimer 442 Sodium 142 Potassium 3.8 Chloride 112 H Carbon Dioxide 23 Anion Gap 11 L BUN 16 Creatinine 0.67 Estim Creat Clear Calc 75.2 Estimated GFR > 60 Random Glucose 122 H D Calcium 8.4 D Ferritin Lactate Dehydrogenase C-Reactive Protein Procalcitonin 05/02/20 05/02/20 04:50 04:50 WBC RBC Hgb Hct MCV MCH MCHC RDW Plt Count MPV Immature Gran % (Auto) Neut % (Auto) Lymph % (Auto) [place] % (Auto) Eos % (Auto) Baso % (Auto) Lymph # (Auto) [place] # (Auto) Eos # (Auto) Baso # (Auto) Abs Immat Gran (auto) Absolute Neuts (auto) Absolute Nucleated RBC Nucleated RBC % (auto) D-Dimer Sodium Potassium Chloride Carbon Dioxide Anion Gap BUN Creatinine Estim Creat Clear Calc Estimated GFR Random Glucose Calcium Ferritin 155 Lactate Dehydrogenase 248 H C-Reactive Protein 0.75 H Procalcitonin 0.06 Microbiology Microbiology Results: Microbiology 04/30/20 18:35 Blood - Venous Blood Culture - Preliminary No growth after 24 hours. 04/30/20 18:35 Blood - Venous Blood Culture - Preliminary No growth after 24 hours. Assessment and Plan (1) COVID-19: Status: Acute (2) Hypoxia: Status: Acute Assessment and Plan: hospital d#2 64yo F admitted for hypoxia from COVID-19 pneumonia # COVID-19 pneumonia - dexamethasone d#07/28, trend inflammatory markers, maintain isolation # acute hypoxic respiratory failure - supplemental O2, wean as tolerated, encouraged self-proning # migraines - prn Fioricet. on Aimovig SQ injection as outpt # GERD - omeprazole # RLS - pramipexole # HLD - continue statin # depression - continue venlafaxine, zolpidem # VTE ppx - LMWH # dispo - may require home O2, eval in am
[2020-05-02 15:06] VITALS: BP 111/61; PULSE 61; RESP 19; TEMP 36; O2SAT 95
--- NOTE | 2020-05-02 15:34 | MHC.CM.PN ---
CM SPOKE TO PT VIA T/C ([phone]). PT REPORTS IT IS JUST HER AND HER AT HOME AND THAT SHE IS INDEPENDENT WITH ALL CARE AND MOBILITY. PT REPORTS SHE DOES NOT USE DME AND SHE DOES NOT HAVE SERVICES. PT CONFIRMS [facility] ANN HER PCP AND SHE HAS A HCP ON FILE. IMM DELIVERED CURRENT DC PLAN IS HOME WITH NO SERVICES. PT IS UNSURE ABOUT TRANSPORTATION HOME DUE TO HER COVID (+) STATUS. PTS IS CURRENTLY INPATIENT WELL AND HER DAUGHTER IS COVID (-). PT MAY NEED CM ASSISTANCE.
[2020-05-02] MEDS: HYDROcodone/Homat 5/1.5/5 ML 5 ML SYRUP PO (17:00)
[2020-05-02 19:17] VITALS: BP 135/68; PULSE 64; RESP 19; TEMP 36; O2SAT 93
[2020-05-02] MEDS: Atorvastatin Calcium 80 MG TABLET PO (21:22)
[2020-05-02 23:29] VITALS: BP 122/58; PULSE 59; RESP 18; TEMP 36.8; O2SAT 93
[2020-05-03] MEDS: HYDROcodone/Homat 5/1.5/5 ML 5 ML SYRUP PO ×2 (02:10→21:08)
[2020-05-03] MEDS: Enoxaparin Sodium 40 MG/0.4 ML SYRINGE SUBCUT (02:11)
[2020-05-03] MEDS: Omeprazole 20 MG CAPSULE.DR PO ×2 (05:30→16:40)
[2020-05-03] MEDS: oxyCODONE HCl Immed Release 5 MG TABLET PO (05:42)
[2020-05-03 06:37] LABS: MANUAL DIFF FLAG NO
[2020-05-03 06:57] LABS: Basophils Percent Auto 0.1 % (0-2); Hematocrit 42.9 % (37-47); Hemoglobin 13.7 g/dl (12.0-16.0); Imm Gran Abs Auto 0.11 X10*3/uL (0.00-0.03); Imm Gran Pct Auto 1.1 % (0.0-0.4); Lymphocytes Absolute Auto 1.2 X10*3/uL (1.2-4.9); Lymphocytes Percent Auto 12.1 % (20-40); Mean Corpuscular HGB Conc 31.9 g/dl (31.0-35.0); Mean Corpuscular Hemoglobin 31.4 pg (27.0-33.0); Mean Corpuscular Volume 98.2 fL (80-98); Mean Platelet Volume 9.3 fL (9.4-12.3); Monocytes Absolute Auto 0.3 X10*3/uL (0.1-1.2); Neutrophils Absolute Auto 8.5 X10*3/uL (2.0-8.3); Neutrophils Percent Auto 83.7 % (45-73); Platelet Count 186 X10*3/uL (160-400); Red Blood Count 4.37 X10*6/uL (4.20-5.50); Red Cell Distribution Width 12.4 % (11.0-16.0); White Blood Count 10.1 X10*3/uL (4.8-10.8)
[2020-05-03 07:14] LABS: Anion Gap 13 (12-20); Blood Urea Nitrogen 18 mg/dL (9-16); Calcium 8.3 mg/dL (8.4-10.2); Carbon Dioxide 24 mmol/L (22-29); Chloride 110 mmol/L (96-108); Creatinine Clr Calc Pharmacy 75.2; Estimated Glomerular Filt Rate > 60; Glucose Random 80 mg/dL (60-115); Potassium 3.5 mmol/l (3.3-5.1); Sodium 143 mmol/L (135-145)
[2020-05-03 08:10] VITALS: BP 142/67; PULSE 76; RESP 18; TEMP 37.4; O2SAT 95
[2020-05-03] MEDS: 0.9 % Sodium Chloride Flush 3 ML SYRINGE IVFLUSH ×3 (09:36→21:02)
[2020-05-03] MEDS: dexAMETHasone sod phosphate 4 MG/ML VIAL 6 MG IVPUSH (09:40)
[2020-05-03] MEDS: Pramipexole Di-HCL 1 MG TABLET PO (09:41)
[2020-05-03] MEDS: Venlafaxine HCl ER 75 MG CAP.ER.24H PO (09:41)
[2020-05-03 10:57] VITALS: BP 147/67; PULSE 80; RESP 18; TEMP 37.4; O2SAT 93
--- NOTE | 2020-05-03 11:20 | MHC.CM.PN ---
DP Home no services. Pt may need assist with transportation. CM will follow.
[2020-05-03 12:09] VITALS: BMI 32.7
--- NOTE | 2020-05-03 15:14 | PC.NURSE ---
PT GIVEN PERMISSION TO SHOWER PER MD. TELEPACK ABLE TO BE REMOVED UNTIL SHOWER IS COMPLETE PER MD.
[2020-05-03 16:01] VITALS: BP 140/66; PULSE 77; RESP 20; TEMP 36.2; O2SAT 93
--- NOTE | 2020-05-03 17:04 | P.PNIM_ITS ---
Subjective Subjective Date of Service: 05/03/20 Interval History: Patient seen and examined at bedside Patient still reporting shortness of breath and cough Constitutional Constitutional: Reports weakness Cardiovascular Cardiovascular: Reports dyspnea Respiratory Respiratory: Reports dyspnea Gastrointestinal Gastrointestinal: Reports nausea and Reports vomiting Neurologic Neurologic: Reports weakness Physical Exam Vital Signs: Vital Signs: Last Vital Signs Temp 97.2 F 05/03/20 16:01 Pulse 77 05/03/20 16:01 Resp 20 05/03/20 16:01 BP 140/66 H 05/03/20 16:01 Pulse Ox 93 05/03/20 16:01 Body Mass Index 32.7 Const: Other: Last Vital Signs Temp 97.2 F 05/03/20 16:01 Pulse 77 05/03/20 16:01 Resp 20 05/03/20 16:01 BP 140/66 H 05/03/20 16:01 Pulse Ox 93 05/03/20 16:01 Body Mass Index 32.7 General: cooperative and no acute distress Orientation/consciousness: mariah ent oriented x3 Eyes: General: appearance normal, both eyes and all related structures Pupils: Equal, round and reactive pupils present Resp: Effort & Inspection: normal respiratory effort and able to speak in complete sentences Auscultation: rhonchi Cardio: Other: Last Vital Signs Temp 97.2 F 05/03/20 16:01 Pulse 77 05/03/20 16:01 Resp 20 05/03/20 16:01 BP 140/66 H 05/03/20 16:01 Pulse Ox 93 05/03/20 16:01 Body Mass Index 32.7 Jugular venous distension: no JVD Rate: regular rate Rhythm: regular rhythm GI: Palpation (GI): Soft to palpation Auscultation: normal bowel sounds Skin: General skin exam: no rashes or lesions noted Neuro: General: patient oriented x3 Cranial nerves: Yes Equal, round and reactive pupils present Cognition (Neuro): normal cognition Extrem: General: Yes normal to inspection and Yes no pedal edema Objective Data Current Medications Generic Name Dose Route Start Last Admin Trade Name Freq PRN Reason Stop Dose Admin Acetaminophen 650 mg 05/01/20 02:50 05/02/20 03:53 Acetaminophen 325 Mg Tablet PO 650 mg Q6H PRN Administration Pain, Mild (Pain Scale 1-3) Acetaminophen/Butalbital/Caffeine 2 tab 05/01/20 03:59 05/02/20 21:22 Butalb/Acetamin/Caff 50/325/40 1 Tab Tablet PO 2 tab Q4H PRN Administration Headache Atorvastatin Calcium 80 mg 05/01/20 21:00 05/02/20 21:22 Atorvastatin Calcium 80 Mg Tablet PO 80 mg BEDTIME ALYSHA Administration Cyclobenzaprine HCl 5 mg 05/01/20 03:59 Cyclobenzaprine Hcl 5 Mg Tablet PO TID PRN Muscle Spasm Dexamethasone Sodium Phosphate 6 mg 05/01/20 09:00 05/03/20 09:40 Dexamethasone Sod Phosphate 4 Mg/Ml Vial IVPUSH 05/09/20 09:01 6 mg DAILY ALYSHA Administration Enoxaparin Sodium 40 mg 05/01/20 02:50 05/03/20 02:11 Enoxaparin Sodium 40 Mg/0.4 Ml Syringe SUBCUT 40 mg Q24H ALYSHA Administration Hydrocodone Bit/Homatropine Methylb 5 ml 05/01/20 15:07 05/03/20 02:10 Hydrocodone/Homat 5/1.5/5 Ml 5 Ml Syrup PO 5 ml Q4H PRN Administration cough Non-Formulary Medication 140 mg 05/01/20 04:00 Erenumab-Aooe [Aimovig Autoinjector] SUBCUT QMONTH ALYSHA Omeprazole 20 mg 05/01/20 06:30 05/03/20 16:40 Omeprazole 20 Mg Capsule.Dr PO 20 mg BID@0630,6310 ALYSHA Administration Ondansetron HCl 4 mg 05/01/20 02:50 05/01/20 03:48 Ondansetron Hcl 4 Mg/2 Ml Vial IVPUSH 4 mg Q8H PRN Administration Nausea and Vomiting Oxycodone HCl 5 mg 05/01/20 02:50 05/03/20 05:42 Oxycodone Hcl Immed Release 5 Mg Tablet PO 5 mg Q6H PRN Administration Pain, Severe (Pain Scale 7-10) Pharmacy Consult 1 each 04/30/20 23:36 Consult Rx Perform Med Rec MISCELLANE ONCE PRN Consult order Pramipexole Dihydrochloride 1 mg 05/01/20 09:00 05/03/20 09:41 Pramipexole Di-Hcl 1 Mg Tablet PO 1 mg DAILY ALYSHA Administration Sodium Chloride 3 ml 05/01/20 08:00 05/03/20 16:40 0.9 % Sodium Chloride Flush 3 Ml Syringe IVFLUSH 3 ml QSHIFT ALYSHA Administration Venlafaxine HCl 75 mg 05/01/20 09:00 05/03/20 09:41 Venlafaxine Hcl Er 75 Mg Cap.Er.24h PO 75 mg DAILY ALYSHA Administration Zolpidem Tartrate 5 mg 05/01/20 04:10 05/01/20 21:08 Zolpidem Tartrate 5 Mg Tablet PO 5 mg BEDTIME PRN Administration Sleep Labs CBC & Chem 7: 05/03/20 06:10 05/03/20 06:10 Microbiology Microbiology Results: Microbiology 04/30/20 18:35 Blood - Venous Blood Culture - Preliminary No growth after 48 hours. 04/30/20 18:35 Blood - Venous Blood Culture - Preliminary No growth after 48 hours. Assessment and Plan (1) High cholesterol: Status: Acute (2) Restless leg syndrome: Status: Acute (3) Pneumonia due to COVID-19 virus: Status: Acute (4) Hypoxia: Status: Acute Assessment and Plan: hospital d#2 64yo F admitted for hypoxia from COVID-19 pneumonia COVID-19 pneumonia continue dexamethasone d#3/10, trend inflammatory markers, maintain isolation Acute hypoxic respiratory failure continuesupplemental O2, wean as tolerated, encouraged self-proning Migraines continue prn Fioricet. on Aimovig SQ injection as outpt GERD continue omeprazole RLS continue pramipexole HLD continue statin Depression continue venlafaxine, zolpidem VTE ppx continue LMWH (5) COVID-19: Status: Acute (6) Migraine: Status: Acute
[2020-05-03 19:29] VITALS: BP 128/67; PULSE 71; RESP 20; TEMP 37; O2SAT 95
[2020-05-03] MEDS: Atorvastatin Calcium 80 MG TABLET PO (21:02)
[2020-05-03 23:41] VITALS: BP 119/57; PULSE 56; RESP 18; TEMP 37.1; O2SAT 90
[2020-05-04 03:34] VITALS: BP 119/63; PULSE 56; RESP 18; TEMP 36.9; O2SAT 94
[2020-05-04] MEDS: Omeprazole 20 MG CAPSULE.DR PO (04:44)
[2020-05-04] MEDS: Enoxaparin Sodium 40 MG/0.4 ML SYRINGE SUBCUT (04:44)
[2020-05-04] MEDS: HYDROcodone/Homat 5/1.5/5 ML 5 ML SYRUP PO (06:04)
[2020-05-04 07:54] VITALS: BP 125/67; PULSE 67; RESP 20; TEMP 36.4; O2SAT 94
[2020-05-04] MEDS: dexAMETHasone sod phosphate 4 MG/ML VIAL 6 MG IVPUSH (07:54)
[2020-05-04] MEDS: 0.9 % Sodium Chloride Flush 3 ML SYRINGE IVFLUSH (07:54)
[2020-05-04] MEDS: Pramipexole Di-HCL 1 MG TABLET PO (07:55)
[2020-05-04] MEDS: Venlafaxine HCl ER 75 MG CAP.ER.24H PO (07:55)
[2020-05-04 11:13] VITALS: BP 143/76; PULSE 83; RESP 20; TEMP 36.8; O2SAT 91
--- NOTE | 2020-05-04 11:51 | MHC.CM.PN ---
Patient has been medically cleared for dc to home today, no services. Second IMM addressed.
--- NOTE | 2020-06-07 16:55 | P.DS_ITS ---
DS: Providers Provider Date of admission: 05/01/20 02:04 Primary care physician: Unknown Physician DS: Diagnosis Discharge Diagnosis (1) High cholesterol: Status: Deleted (2) Restless leg syndrome: Status: Acute (3) Pneumonia due to COVID-19 virus: Status: Resolved (4) Hypoxia: Status: Resolved (5) COVID-19: Status: Resolved (6) Migraine: Status: Acute DS: Medications Discharge Medications Home Medications: Home Medications Medication Instructions Recorded Confirmed Aimovig Autoinjector 140 mg SUBCUT QMONTH 04/30/20 05/20/20 jsvhqzpgoh-nvbojqppfxjlg-bijr 2 cap PO Q4-6H PRN 04/30/20 05/20/20 omeprazole 20 mg PO BID 04/30/20 05/20/20 pramipexole 1 mg PO DAILY 04/30/20 05/20/20 rosuvastatin 40 mg PO DAILY 04/30/20 05/20/20 venlafaxine 75 mg PO DAILY 04/30/20 05/20/20 erenumab-aooe 70 mg/mL mg SUBCUT 05/20/20 05/20/20 subcutaneous auto-injector flu vacc (65yr ml IM 05/20/20 05/20/20 up)-MF59C(PF) 60 mcg(15 mcgx4)/0.5 mL IM syringe propranolol 20 mg tablet 20 mg PO BID 05/20/20 05/20/20 tizanidine 2 mg tablet 2 mg PO TID 05/20/20 05/20/20 topiramate 50 mg tablet 50 mg PO BID 05/20/20 05/20/20 Previous Rx's Medication Instructions Recorded zolpidem 6.25 mg tablet,extended 6.25 mg PO BEDTIME PRN #90 tab 04/26/20 release,multiphase dexamethasone 6 mg PO DAILY #5 tab 05/04/20 clonazepam 0.5 mg tablet 0.25 mg PO BID PRN #30 tab 05/20/20 DS: Summary Hospital Course Hospital Course: date of service 05/04/2020 HPI 64-year-old female with past medical history of migraine, who presents to the hospital complaints of cough, generalized weakness, and dehydration. Patient reports that about a week ago she started developing a cough that has become so severe that she is getting back pain from it, generalized weakness, and loss of appetite. Patient's was diagnosed with COVID and is currently inpatient. She reports that she has also been hypoxic, satting between 87-94%. She has had chills with no fever, some nausea with no vomiting, no abdominal pain, she also has diarrhea that started today, no constipation, no urinary symptoms. No lower extremity edema. patient is an ICU nurse here at [facility] On arrival to the ED hemodynamically stable but noted to have hypoxia on ambulation dropping to the high 80s, labs are significant for WBC count of 4.1 labs are significant for WBC count of 4.1, otherwise unremarkable. Patient is COVID positive. CT chest shows scattered ground-glass densities throughout both lungs typical COVID-19 infection past medical history: Migraine, hyperlipidemia, restless leg syndrome, depression, hospital course 64 y o f f admitted with covid pneumonia and acute hypoxic respiratory failu restarted on supportive management and oxygen supplementation,patient recieved dexamathasone , patient was weaned off from oxygen ,patient was staurating well on room air , patient was stable discharged home. Time Spent with Patient Time attestation: Total time spent providing and/or coordinating discharge services: Physical Exam Vital Signs: Vital Signs: Last Vital Signs Temp 98.2 F 05/04/20 11:13 Pulse 83 05/04/20 11:13 Resp 20 05/04/20 11:13 BP 143/76 H 05/04/20 11:13 Pulse Ox 91 L 05/04/20 11:13 Body Mass Index 32.7 DS: Data Data Completed and Pending Labs on day of discharge: 04/30/20 17:18 CT chest wo con Stat Acetaminophen [Tylenol] 975 mg PO ONCE ONE Azithromycin [Zithromax] 500 mg PO ONCE ONE methylPREDNISolone Sod Succ/PF [SOLU-MedroL] 125 mg IVPUSH ONCE ONE 04/30/20 17:19 ECG 12 lead EKG Stat Continuous Cardiac Monitoring NOW EKG Documentation DIRECTED IV insert/maintain NOW Oxygen administration Nasal Cannula 2 lpm 04/30/20 17:30 0.9 % Sodium Chloride [Ns] 1,000 ml IVCONT 999 mls/hr cefTRIAXone sodium [Rocephin] 1 gm 0.9 % Sodium Chloride [Ns] 50 ml IV ONCE 04/30/20 18:34 UA CC w/rflx Micro + Cult Stat 04/30/20 18:35 B Type Natriuretic Peptide Stat Basic Metabolic Panel Stat Lactic Acid Stat Magnesium Stat SARS-CoV2/FLU/RSV Stat Troponin-I High Sensitivity Stat Blood Culture X2 [BC] Stat 04/30/20 18:54 cefTRIAXone sodium [Rocephin] 1 gm .ROUTE .STK-MED ONE 04/30/20 19:14 Complete Blood Count Auto Diff Stat 04/30/20 23:36 Consult Rx Perform Med Rec 1 each MISCELLANE ONCE PRN 05/01/20 00:21 Code Status Routine Transfer Order Routine 05/01/20 02:50 Acetaminophen [Tylenol] 650 mg PO Q6H PRN Enoxaparin Sodium [Lovenox] 40 mg SUBCUT Q24H dexAMETHasone sod phosphate [Decadron] 4 mg IVPUSH DAILY ONE ondansetron HCL [Zofran] 4 mg IVPUSH Q8H PRN oxyCODONE HCl Immed Release [Roxicodone] 5 mg PO Q6H PRN 05/01/20 02:50 Ambulate QSHIFT WHILE AWAKE IV insert/maintain Q4HR Intake and Output Q8HR Vital Signs Q4HR 05/01/20 03:59 Butalb/Acetamin/Caff 50/325/40 [Fioricet] 2 tab PO Q4H PRN Cyclobenzaprine HCl [Flexeril] 5 mg PO TID PRN 05/01/20 04:00 erenumab-aooe [Aimovig Autoinjector] 140 mg SUBCUT QMONTH 05/01/20 04:10 Zolpidem Tartrate [Ambien] 5 mg PO BEDTIME PRN 05/01/20 06:30 Omeprazole [PriLOSEC] 20 mg PO BID@0630,1630 05/01/20 08:00 0.9 % Sodium Chloride Flush [NS Flush] 3 ml IVFLUSH QSHIFT 05/01/20 09:00 Pramipexole Di-HCL [Mirapex] 1 mg PO DAILY Venlafaxine HCl ER [Effexor XR] 75 mg PO DAILY dexAMETHasone sod phosphate [Decadron] 6 mg IVPUSH DAILY 05/01/20 09:41 Continuous Cardiac Monitoring NOW 05/01/20 15:07 HYDROcodone/Homat 5/1.5/5 ML [Hydromet 5/1.5/5 ML] 5 ml PO Q4H PRN 05/01/20 21:00 Atorvastatin Calcium [Lipitor] 80 mg PO BEDTIME 05/02/20 04:50 Basic Metabolic Panel Routine C Reactive Protein Routine Complete Blood Count Auto Diff Routine D Dimer Routine Ferritin Routine Lactate Dehydrogenase Routine Procalcitonin Routine 05/03/20 06:10 Basic Metabolic Panel Routine Complete Blood Count Auto Diff Routine 05/03/20 06:24 RT Home Oxygen Evaluation CONT 05/03/20 07:51 Airborne/Contact Precautions ONGOING Laboratory Last Values WBC 10.1 X10*3/uL (4.8-10.8) 05/03/20 06:10 RBC 4.37 X10*6/uL (4.20-5.50) 05/03/20 06:10 Hgb 13.7 g/dl (12.0-16.0) 05/03/20 06:10 Hct 42.9 % (37-47) 05/03/20 06:10 MCV 98.2 fL (80-98) H 05/03/20 06:10 MCH 31.4 pg (27.0-33.0) 05/03/20 06:10 MCHC 31.9 g/dl (31.0-35.0) 05/03/20 06:10 RDW 12.4 % (11.0-16.0) 05/03/20 06:10 Plt Count 186 X10*3/uL (160-400) 05/03/20 06:10 MPV 9.3 fL (9.4-12.3) L 05/03/20 06:10 Immature Gran % (Auto) 1.1 % (0.0-0.4) H 05/03/20 06:10 Neut % (Auto) 83.7 % (45-73) H 05/03/20 06:10 Lymph % (Auto) 12.1 % (20-40) L 05/03/20 06:10 [place] % (Auto) 3.0 % (2-11) 05/03/20 06:10 Eos % (Auto) 0.0 % (0-4) 05/03/20 06:10 Baso % (Auto) 0.1 % (0-2) 05/03/20 06:10 Lymph # (Auto) 1.2 X10*3/uL (1.2-4.9) 05/03/20 06:10 [place] # (Auto) 0.3 X10*3/uL (0.1-1.2) 05/03/20 06:10 Eos # (Auto) 0.0 X10*3/uL (0.0-0.4) 05/03/20 06:10 Baso # (Auto) 0.0 X10*3/uL (0.0-0.2) 05/03/20 06:10 Abs Immat Gran (auto) 0.11 X10*3/uL (0.00-0.03) H 05/03/20 06:10 Absolute Neuts (auto) 8.5 X10*3/uL (2.0-8.3) H 05/03/20 06:10 Absolute Nucleated RBC 0.000 X10*3/uL (0.0-0.012) 05/03/20 06:10 Nucleated RBC % (auto) 0.0 /100WBC (0.0-0.2) 05/03/20 06:10 D-Dimer 442 NG/ML 05/02/20 04:50 Sodium 143 mmol/L (135-145) 05/03/20 06:10 Potassium 3.5 mmol/l (3.3-5.1) 05/03/20 06:10 Chloride 110 mmol/L (96-108) H 05/03/20 06:10 Carbon Dioxide 24 mmol/L (22-29) 05/03/20 06:10 Anion Gap 13 (12-20) 05/03/20 06:10 BUN 18 mg/dL (9-16) H 05/03/20 06:10 Creatinine 0.67 mg/dL (0.5-1.4) 05/03/20 06:10 Estim Creat Clear Calc 75.2 05/03/20 06:10 Estimated GFR > 60 05/03/20 06:10 Random Glucose 80 mg/dL (60-115) 05/03/20 06:10 Lactic Acid 0.6 mmol/L (0.5-2.0) 04/30/20 18:35 Calcium 8.3 mg/dL (8.4-10.2) L 05/03/20 06:10 Magnesium 1.7 mg/dL (1.6-2.6) 04/30/20 18:35 Ferritin 155 ng/mL (10-250) 05/02/20 04:50 Lactate Dehydrogenase 248 U/L (122-220) H 05/02/20 04:50 Troponin I High Sens 3.5 ng/L (<3.5-17.0) 04/30/20 18:35 C-Reactive Protein 0.75 mg/dL (< or = 0.50) H 05/02/20 04:50 B-Natriuretic Peptide 18 pg/mL (<100) 04/30/20 18:35 Procalcitonin 0.06 ng/mL 05/02/20 04:50 Urine Color YELLOW 04/30/20 18:34 Urine Appearance CLEAR 04/30/20 18:34 Urine pH 7.0 (5.0-8.0) 04/30/20 18:34 Ur Specific [place] 1.010 (1.005-1.025) 04/30/20 18:34 Urine Protein NEG MG/DL (NEG-TRACE) 04/30/20 18:34 Urine Glucose (UA) NEG MG/DL (NEG) 04/30/20 18:34 Urine Ketones NEG MG/DL (NEG) 04/30/20 18:34 Urine Blood NEG (NEG) 04/30/20 18:34 Urine Nitrite NEG (NEG) 04/30/20 18:34 Ur Leukocyte Esterase NEG (NEG) 04/30/20 18:34 Coronavirus (PCR) POSITIVE (Negative) A 04/30/20 18:35 Influenza Type A (PCR) NEGATIVE (Negative) 04/30/20 18:35 Influenza Type B (PCR) NEGATIVE (Negative) 04/30/20 18:35 RSV RNA Qual (PCR) NEGATIVE (Negative) 04/30/20 18:35 Discharge Plan Discharge Anticipated Discharge Date/Time: 05/04/20 11:24 Patient Disposition: Home, Self-Care Referrals: Physician,Unknown [Primary Care Provider] - Discharge Medications: New dexamethasone 6 mg tablet 6 mg PO DAILY Qty: 5 RF: 0 Continued zolpidem 6.25 mg tablet,ext release multiphase 6.25 mg PO BEDTIME PRN (Reason: insomnia) Qty: 90 RF: 0 pramipexole 1 mg Tablet 1 mg PO DAILY RF: 0 qbradfpuir-dndeinmheokea-kwgp 50-325-40 mg Capsule 2 cap PO Q4-6H PRN (Reason: Headache) RF: 0 venlafaxine 75 mg Capsule,Extended Release 24hr 75 mg PO DAILY RF: 0 omeprazole 20 mg Capsule,Delayed Release(Dr/Ec) 20 mg PO BID RF: 0 rosuvastatin 40 mg Tablet 40 mg PO DAILY RF: 0 Aimovig Autoinjector 140 mg/mL Auto-Injector 140 mg SUBCUT QMONTH RF: 0 No Action Fluad Quad 2020-(65y up)(PF) 60 mcg (15 mcg x 4)/0.5 mL syringe IM RF: 0 topiramate 50 mg tablet 50 mg PO BID RF: 0 Aimovig Autoinjector 70 mg/mL auto-injector subcut RF: 0 propranolol 20 mg tablet 20 mg PO BID RF: 0 tizanidine 2 mg tablet 2 mg PO TID RF: 0 clonazepam 0.5 mg tablet 0.25 mg PO BID PRN (Reason: Acute anxiety) Qty: 30 RF: 0 Discharge Orders: Discharge Order (Routine); Ordered 05/04/20 Ordered By: Renard Chery Diet: advance to usual diet Activity on Discharge: As tolerated Discharge Date/Time: 05/04/20 15:11 Visit Report Forms: Patient Portal Discharge page Care Plan Goals: treat covid Health Concerns: covid pneumonia Plan of Treatment: po prednisone
== END 2020-05-04 15:11 | disposition home or self-care (01) | DRG 177 ==
LOC: HO.ED 23:22 → HO.IMC 05-01 02:08
PROVIDERS: Family Medicine; Nurse Practitioner Family; Admitting Provider Internal Medicine; Emergency Provider Emergency Medicine; Visit Provider Internal Medicine
DX: U07.1 COVID-19 (principal); J12.89 Other viral pneumonia; J96.01 Acute respiratory failure with hypoxia; G43.909 Migraine, unspecified, not intractable, without status migrainosus; E78.5 Hyperlipidemia, unspecified; G25.81 Restless legs syndrome; K21.9 Gastro-esophageal reflux disease without esophagitis; F32.9 Major depressive disorder, single episode, unspecified; Z79.899 Other long term (current) drug therapy
CPT/HCPCS: 0241U; 36415; 71250; 80048; 81003; 82728; 83605; 83615; 83735; 83880; 84145; 84484; 85025; 85379; 86140; 87040; 93005; 96365; 96375; 99285; 99291; J0696; J1100; J1650; J2405; J2930

== ENCOUNTER 2020-06-18 18:04 | Emergency (ER) | payer MEDICARE, OTHER, SELFPAY ==
[2020-06-18 18:09] VITALS: BP 139/88; PULSE 105; RESP 22; O2SAT 96; BMI 29.2
--- NOTE | 2020-06-18 18:15 | ED.GENADULT ---
HPI - General Adult General Chief complaint: General Medical Stated complaint: trouble swallowing,chest pain Time Seen by Provider: 06/18/20 18:14 Source: patient Mode of arrival: ambulatory History of Present Illness HPI narrative: 64-year-old female with a past medical history of migraines, hyperlipidemia, restless leg syndrome, depression, COVID-19 s/p admission to our hospital for COVID-19 pneumonia/hypoxic respiratory failure discharged on 06/07, c/o esophageal spasm x 30 minutes s/p eating a pork chop. Reports associated nausea and 4 episodes of emesis, but denies feeling like something is stuck in throat. Admits to substernal chest pain, and mild SOB. States glucagon usually works for her as has had similar symptoms in the past. Denies cough, fever, chills, abdominal pain Onset (ago): minute(s) Related Data Home Medications Medication Instructions Recorded Confirmed Aimovig Autoinjector 140 mg SUBCUT QMONTH 04/30/20 05/20/20 tgsdgjtolr-naecxmuteacer-wgqh 2 cap PO Q4-6H PRN 04/30/20 05/20/20 omeprazole 20 mg PO BID 04/30/20 05/20/20 pramipexole 1 mg PO DAILY 04/30/20 05/20/20 rosuvastatin 40 mg PO DAILY 04/30/20 05/20/20 venlafaxine 75 mg PO DAILY 04/30/20 05/20/20 erenumab-aooe 70 mg/mL mg SUBCUT 05/20/20 05/20/20 subcutaneous auto-injector flu vacc 2020-21(65yr ml IM 05/20/20 05/20/20 up)-MF59C(PF) 60 mcg(15 mcgx4)/0.5 mL IM syringe propranolol 20 mg tablet 20 mg PO BID 05/20/20 05/20/20 tizanidine 2 mg tablet 2 mg PO TID 05/20/20 05/20/20 topiramate 50 mg tablet 50 mg PO BID 05/20/20 05/20/20 Previous Rx's Medication Instructions Recorded zolpidem 6.25 mg tablet,extended 6.25 mg PO BEDTIME PRN #90 tab 04/26/20 release,multiphase dexamethasone 6 mg PO DAILY #5 tab 05/04/20 clonazepam 0.5 mg tablet 0.25 mg PO BID PRN #30 tab 05/20/20 nitroglycerin 0.4 mg SUBLINGUAL Q10M PRN #7 tab 06/18/20 Allergies Allergy/AdvReac Type Severity Reaction Status Date / Time adhesive [ADHESIVE] Allergy Intermediate RASH Verified 05/20/20 14:19 diphenhydramine AdvReac Unknown MAKES HER Verified 05/20/20 14:19 [From BENADRYL] EXCITED/HYPED UP promethazine [Phenergan] AdvReac Unknown Fell Verified 05/20/20 14:19 asleep x16hrs and woke up not knowing where she was Review of Systems Review of Systems: Constitutional: No Weight loss, No Fever, No Chills ENT/Mouth: No Hoarseness, No sore throat Eyes: No Eye Pain, No Swelling, No Redness, No Foreign Body, No Discharge, No Vision Changes Cardiovascular: + Chest Pain, +SOB, No Dyspnea on Exertion Respiratory: No Cough, No Sputum Gastrointestinal: + Nausea, + Vomiting, No Diarrhea, No Constipation, No Abdominal pain Genitourinary: No irregular bleeding, No Dysuria, No Urinary Frequency, No Hematuria Musculoskeletal: No joint pain, No Myalgias, No Joint Swelling Skin: No Skin Lesions, No rash Yes all other systems are reviewed and are negative [facility] Past Medical History Attestation statement: The following information was validated with the patient. Medical History Cataract Lumbar disc herniation Migraine Mixed dyslipidemia Post laminectomy syndrome Restless leg syndrome Seizure after head injury Surgical History H/O: hysterectomy Hx of spinal fusion Family History Family History Father Myocardial infarction Mother Depression HTN (hypertension) GERD (gastroesophageal reflux disease) FTT (failure to thrive) in adult Sister Alcoholism Lung cancer Daughter No problems noted. Daughter No problems noted. Brother No problems noted. Brother No problems noted. Brother No problems noted. Social History Social History Household Members: Spouse Housing: House Alcohol intake: never Smoking Status: Never smoker Use of substances other than those prescribed or required for medical reasons: No Advance Directives: No Advance Directives Information Provided: Yes service: No Current occupational status: retired Physical Exam Vital Signs: Vital Signs: Last Vital Signs Temp 97.6 F 06/18/20 21:43 Pulse 80 06/18/20 21:43 Resp 20 06/18/20 21:43 BP 120/60 06/18/20 21:43 Pulse Ox 94 06/18/20 21:43 Body Mass Index 29.2 Const: General: cooperative and healthy appearing Orientation/consciousness: patient oriented x3 Limitations: no limitations HENMT: Head: Yes normal to inspection Ears: hearing grossly normal bilaterally General nose exam: Normal external nose present Face and sinus: Yes normal facial exam Mouth: Normal oral and palatal mucosa present Throat: Yes posterior oropharynx normal, Yes uvula midline and No peritonsillar mass Eyes: General: appearance normal, both eyes and all related structures EOM: EOMs intact bilaterally Neck: Neck: Yes normal visual inspection Chest: Chest palpation & inspection: normal inspection of the chest Resp: Effort & Inspection: normal respiratory effort, no stridor and tachypneic Auscultation: clear to auscultation bilaterally, no crackles, no rales and no rhonchi Cardio: Rate: regular rate Heart sounds: S1 normal heart sound present and S2 normal heart sound present GI: Inspection: Yes normal to inspection Palpation (GI): Soft to palpation, nontender, no guarding and not rigid Skin: Rashes: no rashes Wounds: no wounds Neuro: General: patient oriented x3 Gait exam (Neuro): Normal gait present Extrem: General: Yes normal to inspection Course Course Course Narrative: 2124-- patient with minimal relief after glucagon > will try SL Nitro and reassess EKG with nonspecific T wave inversions, no STEMI AST/ALT chronically elevated, initial troponin negative > will obtain 3hr repeat 2014- pain resolved after Nitro, but patient reports migraine MENDEZ now 2225--repeat troponin equivocal. Patient reports symptomatic resolution. Worrisome signs and symptoms and strict return precautions discussed. Patient requesting prescription for nitroglycerin, was sent to pharmacy. Admits she has follow-up with her GI doctor at the end of the month Medical Decision Making [facility] Narrative Medical decision making narrative: 64-year-old female with a past medical history of migraines, hyperlipidemia, restless leg syndrome, depression, COVID-19 s/p admission to our hospital for COVID-19 pneumonia/hypoxic respiratory failure discharged on 06/07, c/o esophageal spasm x30 minutes s/p eating a pork chop. On exam mildly tachycardic, tachynpeic, coughing/dry heaving on exam. Concern for esophageal spasm vs food bolus vs ACS. Low concern for PE/PNA or COVID19 Plan: EKG, labs, Glucagon, Zofran, IVF, Reassess Lab Data Result diagrams: 06/18/20 18:49 06/18/20 18:49 Labs: Lab Results 06/18/20 06/18/20 06/18/20 Range/Units 18:49 18:49 18:49 WBC 6.1 (4.8-10.8) X10*3/uL RBC 4.99 (4.20-5.50) X10*6/uL Hgb 16.1 H (12.0-16.0) g/dl Hct 48.4 H (37-47) % MCV 97.0 (80-98) fL MCH 32.3 (27.0-33.0) pg MCHC 33.3 (31.0-35.0) g/dl RDW 12.4 (11.0-16.0) % Plt Count 213 (160-400) X10*3/uL MPV 9.0 L (9.4-12.3) fL Immature Gran % (Auto) 0.2 (0.0-0.4) % Neut % (Auto) 59.6 (45-73) % Lymph % (Auto) 28.9 (20-40) % [place] % (Auto) 6.8 (2-11) % Eos % (Auto) 3.5 (0-4) % Baso % (Auto) 1.0 (0-2) % Lymph # (Auto) 1.8 (1.2-4.9) X10*3/uL [place] # (Auto) 0.4 (0.1-1.2) X10*3/uL Eos # (Auto) 0.2 (0.0-0.4) X10*3/uL Baso # (Auto) 0.1 (0.0-0.2) X10*3/uL Abs Immat Gran (auto) 0.01 (0.00-0.03) X10*3/uL Absolute Neuts (auto) 3.6 (2.0-8.3) X10*3/uL Absolute Nucleated RBC 0.000 (0.0-0.012) X10*3/uL Nucleated RBC % (auto) 0.0 (0.0-0.2) /100WBC Sodium 142 (135-145) mmol/L Potassium 3.7 (3.3-5.1) mmol/l Chloride 109 H (96-108) mmol/L Carbon Dioxide 21 L (22-29) mmol/L Anion Gap 16 (12-20) BUN 16 (9-16) mg/dL Creatinine 0.64 (0.5-1.4) mg/dL Estim Creat Clear Calc 83.7 Estimated GFR > 60 Random Glucose 96 (60-115) mg/dL Calcium 9.3 D (8.4-10.2) mg/dL Magnesium 1.8 (1.6-2.6) mg/dL Total Bilirubin 0.4 (0.0-1.0) mg/dL Direct Bilirubin 0.2 (0.0-0.5) mg/dL AST 57 H (5-31) U/L ALT 63 H (0-31) U/L Alkaline Phosphatase 118 H (39-117) U/L Troponin I High Sens < 3.5 (<3.5-17.0) ng/L Total Protein 7.4 (6.5-8.0) g/dL Albumin 4.8 (3.5-5.0) g/dL Lipase 32 (8-78) U/L 06/18/20 Range/Units 21:42 WBC (4.8-10.8) X10*3/uL RBC (4.20-5.50) X10*6/uL Hgb (12.0-16.0) g/dl Hct (37-47) % MCV (80-98) fL MCH (27.0-33.0) pg MCHC (31.0-35.0) g/dl RDW (11.0-16.0) % Plt Count (160-400) X10*3/uL MPV (9.4-12.3) fL Immature Gran % (Auto) (0.0-0.4) % Neut % (Auto) (45-73) % Lymph % (Auto) (20-40) % [place] % (Auto) (2-11) % Eos % (Auto) (0-4) % Baso % (Auto) (0-2) % Lymph # (Auto) (1.2-4.9) X10*3/uL [place] # (Auto) (0.1-1.2) X10*3/uL Eos # (Auto) (0.0-0.4) X10*3/uL Baso # (Auto) (0.0-0.2) X10*3/uL Abs Immat Gran (auto) (0.00-0.03) X10*3/uL Absolute Neuts (auto) (2.0-8.3) X10*3/uL Absolute Nucleated RBC (0.0-0.012) X10*3/uL Nucleated RBC % (auto) (0.0-0.2) /100WBC Sodium (135-145) mmol/L Potassium (3.3-5.1) mmol/l Chloride (96-108) mmol/L Carbon Dioxide (22-29) mmol/L Anion Gap (12-20) BUN (9-16) mg/dL Creatinine (0.5-1.4) mg/dL Estim Creat Clear Calc Estimated GFR Random Glucose (60-115) mg/dL Calcium (8.4-10.2) mg/dL Magnesium (1.6-2.6) mg/dL Total Bilirubin (0.0-1.0) mg/dL Direct Bilirubin (0.0-0.5) mg/dL AST (5-31) U/L ALT (0-31) U/L Alkaline Phosphatase (39-117) U/L Troponin I High Sens < 3.5 (<3.5-17.0) ng/L Total Protein (6.5-8.0) g/dL Albumin (3.5-5.0) g/dL Lipase (8-78) U/L Discharge Plan Discharge Clinical Impression: Esophageal spasm Patient Disposition: Home, Self-Care Instructions: Esophageal Spasm (ED) Additional Instructions: Your blood work was reassuring today in the ED follow up with your PCP and GI doctor Take Nitroglycerin at home only when needed for esophageal spasms if your symptoms persist or worsen, you have constant or worsening chest pain or shortness of breath or fever return to the ED Prescriptions: New nitroglycerin 0.4 mg tablet, sublingual 0.4 mg sublingual Q10M PRN (Reason: Esophageal spasm) Qty: 7 RF: 0 No Action zolpidem 6.25 mg tablet,ext release multiphase 6.25 mg PO BEDTIME PRN (Reason: insomnia) Qty: 90 RF: 0 pramipexole 1 mg Tablet 1 mg PO DAILY RF: 0 gmifjyvkvf-vyhnjxzkebwur-kzdi 50-325-40 mg Capsule 2 cap PO Q4-6H PRN (Reason: Headache) RF: 0 venlafaxine 75 mg Capsule,Extended Release 24hr 75 mg PO DAILY RF: 0 omeprazole 20 mg Capsule,Delayed Release(Dr/Ec) 20 mg PO BID RF: 0 rosuvastatin 40 mg Tablet 40 mg PO DAILY RF: 0 Aimovig Autoinjector 140 mg/mL Auto-Injector 140 mg SUBCUT QMONTH RF: 0 dexamethasone 6 mg tablet 6 mg PO DAILY Qty: 5 RF: 0 Fluad Quad 2020-21(65y up)(PF) 60 mcg (15 mcg x 4)/0.5 mL syringe IM RF: 0 topiramate 50 mg tablet 50 mg PO BID RF: 0 Aimovig Autoinjector 70 mg/mL auto-injector subcut RF: 0 propranolol 20 mg tablet 20 mg PO BID RF: 0 tizanidine 2 mg tablet 2 mg PO TID RF: 0 clonazepam 0.5 mg tablet 0.25 mg PO BID PRN (Reason: Acute anxiety) Qty: 30 RF: 0 Referrals: Physician,Unknown [Primary Care Provider] - 2 days
--- NOTE | 2020-06-18 18:21 | ECG_ITS ---
Test Reason : CHEST PAIN Blood Pressure : / mmHG Vent. Rate : 082 BPM Atrial Rate : 082 BPM P-R Int : 134 ms QRS Dur : 078 ms QT Int : 402 ms P-R-T Axes : 028 014 073 degrees QTc Int : 469 ms Normal sinus rhythm Nonspecific ST and T wave abnormality Abnormal ECG When compared with ECG of 30-APR-2020 18:45, anterior changes more prominent Referred By: Lary Yousif Electronically Signed By:REJI MILES
[2020-06-18] MEDS: 0.9 % Sodium Chloride 1,000 ML 999 ML IVCONT (18:55)
[2020-06-18] MEDS: ondansetron HCL 4 MG/2 ML VIAL IVPUSH (18:55)
[2020-06-18 18:56] LABS: Basophils Absolute Auto 0.1 X10*3/uL (0.0-0.2); Eosinophils Absolute Auto 0.2 X10*3/uL (0.0-0.4); Eosinophils Percent Auto 3.5 % (0-4); Hematocrit 48.4 % (37-47); Hemoglobin 16.1 g/dl (12.0-16.0); Imm Gran Abs Auto 0.01 X10*3/uL (0.00-0.03); Imm Gran Pct Auto 0.2 % (0.0-0.4); Lymphocytes Absolute Auto 1.8 X10*3/uL (1.2-4.9); Lymphocytes Percent Auto 28.9 % (20-40); MANUAL DIFF FLAG NO; Mean Corpuscular HGB Conc 33.3 g/dl (31.0-35.0); Mean Corpuscular Hemoglobin 32.3 pg (27.0-33.0); Monocytes Absolute Auto 0.4 X10*3/uL (0.1-1.2); Monocytes Percent Auto 6.8 % (2-11); Neutrophils Absolute Auto 3.6 X10*3/uL (2.0-8.3); Neutrophils Percent Auto 59.6 % (45-73); Platelet Count 213 X10*3/uL (160-400); Red Blood Count 4.99 X10*6/uL (4.20-5.50); Red Cell Distribution Width 12.4 % (11.0-16.0); White Blood Count 6.1 X10*3/uL (4.8-10.8)
[2020-06-18 19:21] LABS: Alanine Aminotransferase 63 U/L (0-31); Albumin Level 4.8 g/dL (3.5-5.0); Alkaline Phosphatase 118 U/L (39-117); Anion Gap 16 (12-20); Aspartate Amino Transferase 57 U/L (5-31); Bilirubin Direct 0.2 mg/dL (0.0-0.5); Bilirubin Total 0.4 mg/dL (0.0-1.0); Blood Urea Nitrogen 16 mg/dL (9-16); Calcium 9.3 mg/dL (8.4-10.2); Carbon Dioxide 21 mmol/L (22-29); Chloride 109 mmol/L (96-108); Creatinine Clr Calc Pharmacy 83.7; Estimated Glomerular Filt Rate > 60; Glucose Random 96 mg/dL (60-115); Lipase 32 U/L (8-78); Magnesium 1.8 mg/dL (1.6-2.6); Potassium 3.7 mmol/l (3.3-5.1); Sodium 142 mmol/L (135-145); Total Protein 7.4 g/dL (6.5-8.0)
[2020-06-18 19:28] LABS: Troponin-I High Sensitivity < 3.5 ng/L (<3.5-17.0)
[2020-06-18 19:29] VITALS: BP 137/77; PULSE 87
[2020-06-18] MEDS: Nitroglycerin 0.4 MG TAB.SUBL SUBLINGUAL (19:29)
[2020-06-18 19:31] VITALS: BP 137/77; PULSE 87; RESP 18; O2SAT 94
[2020-06-18] MEDS: LORazepam 2 MG/ML VIAL 1 MG IVPUSH (19:48)
[2020-06-18] MEDS: Ketorolac Tromethamine 15 MG/ML VIAL IVPUSH (19:48)
--- NOTE | 2020-06-18 20:16 | PC.NURSE ---
PT ARRIVED TO ED C/O ESOPHAGEAL SPASM PREVENTING PT FROM BEING ABLE TO SWALLOW OR HANDLE SECRETIONS, PT SPITTING INTO BAG, PT REPORTS HX OF SAME THOUGH EPISODES USUALLY RESOLVE QUICKLY. IV ESTABLISHED, LABS DRAWN, PT MEDICATED PER EMAR. AFTER 1ST DOSE OF GLUCAGON PT REPORTED MODERATE IMPROVEMENT IN SX, PT THEN MEDICATED W/ SL NTG AFTER WHICH PT REPORTED TOTAL RESOLUTION OF SX. PT THEN C/O NEW ONSET MIGRAINE EXACERBATED BY SWALLOWING DIFFICULTIES, PT MEDICATED FOR MENDEZ PER EMAR. PT NOW SLEEPING UPRIGHT IN BED, RR EVEN UNLABORED, SKIN WPD, NAD. PT AWARE/AGREEABLE TO PLAN OF CARE.
--- NOTE | 2020-06-18 21:36 | PC.NURSE ---
PT UPRIGHT IN BED, RR EVEN UNLABORED, SKIN WPD, NAD. PT REPORTS CONTINUED RESOLUTION OF ESOPHAGEAL SX AND RESOLUTION OF HEADACHE. TECH AT BEDSIDE FOR REPEAT BLOOD WORK, PT AWAITING RESULTS.
[2020-06-18 21:43] VITALS: BP 120/60; PULSE 80; RESP 20; TEMP 36.4; O2SAT 94
[2020-06-18 22:24] LABS: Troponin-I High Sensitivity < 3.5 ng/L (<3.5-17.0)
== END 2020-06-18 22:47 | disposition home or self-care (01) ==
PROVIDERS: Physician Assistant; Emergency Provider Internal Medicine
DX: K22.4 Dyskinesia of esophagus (principal); Z86.16 Personal history of COVID-19
CPT/HCPCS: 36415; 80048; 80076; 83690; 83735; 84484; 85025; 93005; 96361; 96374; 96375; 99284; J1610; J1885; J2060; J2405

== ENCOUNTER → 2020-06-23 09:59 | Outpatient (BNVA) | payer MEDICARE, OTHER, SELFPAY | PROVIDERS: PCP Internal Medicine; Visit Provider Internal Medicine Gastroenterology | DX: Z13.89 Encounter for screening for other disorder (principal) | CPT/HCPCS: Q3014 ==

== ENCOUNTER → 2020-07-21 09:40 | Outpatient (BNVA) | payer MEDICARE, OTHER, SELFPAY | PROVIDERS: PCP Internal Medicine; Visit Provider Internal Medicine Gastroenterology | DX: Z13.89 Encounter for screening for other disorder (principal) | CPT/HCPCS: Q3014 ==

== ENCOUNTER 2020-08-11 14:24 | Outpatient (REF) | payer MEDICARE, OTHER, SELFPAY ==
--- NOTE | ~2020-08-11 | MM_ITS ---
EXAMINATION: MM SCREENING DIGITAL BREAST TOMOSYNTHESIS, BILATERAL CLINICAL INFORMATION: Screening. Asymptomatic. The lifetime risk of breast cancer based on the Tyrer-Cuzick Model is 6%. COMPARISON: Mammography: 08/07/2019, 07/18/2018, 03/09/2017 TECHNIQUE: Digital breast tomosynthesis is performed in both the craniocaudal and mediolateral oblique views along with computer-aided detection (CAD). Synthesized 2D images are generated from the tomosynthesis. FINDINGS: There are scattered areas of fibroglandular density (ACR BI-RADS breast composition Category b). There are no significant masses, abnormal calcifications, or other abnormalities. Parenchymal pattern is similar to prior exams. No developing density. The axilla and skin contours are unremarkable. MM/MM tomosynthesis screening BI IMPRESSION: No mammographic evidence of malignancy. ASSESSMENT: BI-RADS 1: Negative RECOMMENDATION: Routine annual mammography screening. This patient's information was entered into a reminder system with a target due date for their next mammogram.
== END 2020-08-11 14:25 | disposition home or self-care (01) ==
LOC: HO.MAMMO 14:24
PROVIDERS: PCP Internal Medicine; Visit Provider Internal Medicine
DX: Z12.31 Encounter for screening mammogram for malignant neoplasm of breast (principal)
CPT/HCPCS: 77063; 77067

== ENCOUNTER → 2020-10-11 08:16 | Outpatient (BNVA) | payer MEDICARE, OTHER, SELFPAY | PROVIDERS: PCP Internal Medicine; Visit Provider Internal Medicine Gastroenterology | CPT/HCPCS: Q3014 ==

== ENCOUNTER 2020-12-06 09:41 | Outpatient (REF) | payer MEDICARE, OTHER, SELFPAY ==
--- NOTE | ~2020-12-06 | XR_ITS ---
EXAMINATION: BILATERAL HANDS. CLINICAL INFORMATION: Pain in both hands. COMPARISON: None TECHNIQUE: 3 views each hand. FINDINGS: Right hand: There is loss of PIP and DIP joint space with mild periarticular spurring DIP joint third digit. There is mild calcification of TFC. There is no visible acute fracture or dislocation or lytic process seen. Left hand: There is mild loss of PIP and DIP joint space of all digits with no visible acute fracture, dislocation or subluxation seen. There is mild calcification of triangular fibrocartilage The soft tissues are normal. XR/XR hand RT min 3V IMPRESSION: Mild degenerative changes PIP and DIP joints both hands. Mild calcification of tracheal fibrocartilage both hands. No acute fracture or bony erosive changes.
--- NOTE | ~2020-12-06 | XR_ITS ---
EXAMINATION: BILATERAL HANDS. CLINICAL INFORMATION: Pain in both hands. COMPARISON: None TECHNIQUE: 3 views each hand. FINDINGS: Right hand: There is loss of PIP and DIP joint space with mild periarticular spurring DIP joint third digit. There is mild calcification of TFC. There is no visible acute fracture or dislocation or lytic process seen. Left hand: There is mild loss of PIP and DIP joint space of all digits with no visible acute fracture, dislocation or subluxation seen. There is mild calcification of triangular fibrocartilage The soft tissues are normal. XR/XR hand LT min 3V IMPRESSION: Mild degenerative changes PIP and DIP joints both hands. Mild calcification of tracheal fibrocartilage both hands. No acute fracture or bony erosive changes.
== END 2020-12-06 09:42 | disposition home or self-care (01) ==
LOC: HO.HMGCX 09:41
PROVIDERS: PCP Internal Medicine; Visit Provider Physical Medicine & Rehabilitation
DX: M79.642 Pain in left hand (principal); M79.641 Pain in right hand
CPT/HCPCS: 73130

== ENCOUNTER 2021-02-21 03:54 | Emergency (ER) | payer MEDICARE, OTHER, SELFPAY ==
--- NOTE | ~2021-02-21 | CT_ITS ---
EXAMINATION: CT ABDOMEN AND PELVIS WITHOUT CONTRAST CLINICAL INFORMATION: Left flank pain COMPARISON: 12.15.2016 TECHNIQUE: Multidetector volumetric imaging was performed from the superior aspect of the liver through the pubic symphysis. Sagittal and coronal reformatted images were obtained on the technologist's workstation. This CT examination was performed using dose optimization techniques as appropriate, variously including the following: *Automated exposure control *Adjustment of mA and/or kV according to patient size (this includes techniques or standardized protocols for targeted exams where dose is matched to indication/reason for exam; i.e. extremities or head) *Use of iterative reconstruction technique DLP: 726 mGy-cm FINDINGS: LUNG BASES: The visualized lung bases are unremarkable. LIVER, GALLBLADDER, AND BILIARY TREE: The liver is normal in size, shape, and attenuation. No focal hepatic lesion or biliary ductal dilatation is present. Gallbladder unremarkable. PANCREAS: Unremarkable. SPLEEN: Unremarkable. ADRENAL GLANDS: Unremarkable. KIDNEYS AND URETERS: The kidneys are normal in size, shape, and attenuation. No hydronephrosis or hydroureter. Mild left pelvocaliectasis and slight prominence of the left ureter. There are single punctate nonobstructive calculi in the upper poles of each kidney, 2 on the left and one on the right. No ureteral calculi. No perinephric stranding. BLADDER: There are 2 adjacent 2 mm calculi within the dependent bladder, likely representing recently passed stones. GASTROINTESTINAL TRACT: Scattered sigmoid colonic diverticula. No evidence of diverticulitis. Small sliding-type hiatal hernia. Stomach otherwise unremarkable. Normal small bowel. Appendix not seen. ABDOMINAL WALL: No significant hernia is appreciated. LYMPH NODES: Normal. VASCULAR: Aorta mildly atherosclerotic but normal caliber. PELVIC VISCERA: Hysterectomy. No adnexal abnormalities. OSSEOUS STRUCTURES: No acute or suspicious osseous abnormalities. Interbody cages present at L4-L5 and L5-S1. Severe discogenic degenerative disease present L2-L3 and L3-L4. CT/CT abdomen pelvis wo con IMPRESSION: * There is mild left pelvocaliectasis and hydroureter, without ureteral calculus identified. There are a couple 2 mm calculi within the dependent bladder which may represent a recently passed stones. * Bilateral nonobstructive intrarenal calculi as described. * Sigmoid colonic diverticulosis without evidence of diverticulitis. * Hysterectomy.
[2021-02-21 04:02] VITALS: BP 167/70; PULSE 92; RESP 20; TEMP 36.6; O2SAT 95; BMI 32.8
[2021-02-21 04:23] VITALS: BP 139/71; PULSE 87; RESP 18; TEMP 36.9; O2SAT 95
--- NOTE | 2021-02-21 04:25 | PC.NURSE ---
Pt alert and oriented, vss, LSCTA. Pt states she has been having left lower back pain and abdominal pressure since yesterday. She says the pain got worst overnight and into this morning. Pt states she had kidney stones in the past and these symptoms are similar to what she had in the past. She denies sob/n/v/d. Pt states she took Ibuprofen but it did not help. Dr. Galvan at bedside.
--- NOTE | 2021-02-21 04:28 | ED_ITS ---
HPI - General Adult General Chief complaint: General Medical Stated complaint: kidney stone? Time Seen by Provider: 02/21/21 04:21 Source: patient Mode of arrival: ambulatory Limitations: no limitations History of Present Illness HPI narrative: Patient comes to the emergency room complaining of left-sided flank pain which started approximately 3-1/2 hours ago. Patient states that all day yesterday she was not feeling right, but around 01:30, he started having sharp radiating pain from the left flank to the left groin area. Patient has had kidney stones in the past, states it feels the same. Patient complaining of nausea, no vomiting or diarrhea, no abdominal pain, no fever chills Related Data Home Medications Medication Instructions Recorded Confirmed nrqfvrtzvb-jvvsewverhtys-towzkcur 2 cap PO Q4-6H PRN 04/30/20 07/21/20 50 mg-325 mg-40 mg capsule erenumab-aooe 140 mg/mL 140 mg SUBCUT QMONTH 04/30/20 10/11/20 subcutaneous auto-injector (Aimovig Autoinjector) pramipexole 1 mg tablet 1 mg PO DAILY 04/30/20 10/11/20 rosuvastatin 40 mg tablet 40 mg PO DAILY 04/30/20 07/21/20 venlafaxine 75 mg capsule,extended 75 mg PO DAILY 04/30/20 07/21/20 release 24 hr flu vacc (65yr ml IM 05/20/20 10/11/20 up)-MF59C(PF) 60 mcg(15 mcgx4)/0.5 mL IM syringe tizanidine 2 mg tablet 2 mg PO TID 05/20/20 07/21/20 Previous Rx's Medication Instructions Recorded zolpidem 6.25 mg tablet,extended 6.25 mg PO BEDTIME PRN #90 tab 04/26/20 release,multiphase nitroglycerin 0.4 mg sublingual 0.4 mg SUBLINGUAL Q10M PRN #7 tab 06/18/20 tablet clonazepam 0.5 mg tablet 0.25 mg PO BID PRN #30 tab 06/21/20 omeprazole 40 mg capsule,delayed 40 mg PO BID 90 Days #180 cap 12/29/20 release ondansetron HCl 4 mg tablet 4 mg PO Q6H PRN #14 tab 02/21/21 (Zofran) prednisone 20 mg tablet 20 mg PO DAILY #3 tab 02/21/21 tramadol 50 mg tablet 50 mg PO Q6H PRN #14 tab 02/21/21 Allergies Allergy/AdvReac Type Severity Reaction Status Date / Time adhesive [ADHESIVE] Allergy Intermediate RASH Verified 02/21/21 04:02 diphenhydramine AdvReac Unknown MAKES HER Verified 02/21/21 04:02 [From BENADRYL] EXCITED/HYPED UP promethazine [Phenergan] AdvReac Unknown Fell Verified 02/21/21 04:02 asleep x16hrs and woke up not knowing where she was fluoxetine [From Prozac] AdvReac can not Verified 02/21/21 04:02 stop moving Review of Systems Review of Systems: Constitutional : No Weight loss, No Fever, No Chills, No Night Sweats, No Fatigue, No Malaise ENT/Mouth : No Hearing loss, No Ear Pain, No Nasal Congestion, No Sinus Pain, No Hoarseness, No sore throat, No Rhinorrhea, No Swallowing Difficulty Eyes: No Eye Pain, No Swelling, No Redness, No Foreign Body, No Discharge, No Vision Changes Cardiovascular : No Chest Pain, No SOB, No Dyspnea on Exertion, No Orthopnea, No Edema, No Palpitations Respiratory : No Cough, No Sputum, No Wheezing, No Smoke Exposure, No Dyspnea Gastrointestinal : Complaining of Nausea, No Vomiting, No Diarrhea, No Constipation, No abdominal Pain, No Hematochezia, No Melena Genitourinary : no irregular bleeding, No Dysuria, No Urinary Frequency, No Hem aturia, No Urinary Incontinence, No Urgency, complaining of left-sided Flank Pain, No Urinary Flow Changes, No Hesitancy Musculoskeletal : No joint pain, No Myalgias, No Joint Swelling Skin : No Skin Lesions, No rash Neuro : No Weakness, No Numbness, No Paresthesias, No Loss of Consciousness, No Dizziness, No Headache Psych : No Anxiety/Panic, No Depression, No SI/HI/AH/VH, No Social Issues, Heme/Lymph: No Bruising, No Bleeding,No Lymphadenopathy Endocrine : No Polyuria, No Polydipsia, No Temperature Intolerance PMFSH Past Medical History Medical History Cataract GERD (gastroesophageal reflux disease) Lumbar disc herniation Migraine Mixed dyslipidemia Personal history of covid-19 Post laminectomy syndrome Restless leg syndrome Seizure after head injury Tubular adenoma of colon Surgical History H/O: hysterectomy History of esophagogastroduodenoscopy (EGD) Hx of colonoscopy Hx of spinal fusion Family History Family History Father Myocardial infarction, Onset Age: 53 COPD (chronic obstructive pulmonary disease) Diverticulitis Alcoholic Mother Depression HTN (hypertension) GERD (gastroesophageal reflux disease) FTT (failure to thrive) in adult Myocardial infarction Sister Alcoholic Lung cancer Daughter No problems noted. Daughter No problems noted. Brother Alcoholic Depression Bladder cancer Brother No problems noted. Brother Laryngeal cancer Liver cancer Social History Social History Household Members: None Household Members Other:: spouse just last month from Covid and complication. Patient now alone Housing: House Do you presently have visiting nurse or other home services: No Alcohol intake: current Alcohol intake frequency: does not drink Alcohol type: wine Patient Tobacco Use Status: Never used Tobacco Use of substances other than those prescribed or required for medical reasons: No Advance Directives: No Advance Directives Information Provided: No service: No Current occupational status: retired Physical Exam Vital Signs: Vital Signs: Last Vital Signs Temp 98.4 F 02/21/21 04:23 Pulse 68 02/21/21 07:28 Resp 18 02/21/21 07:28 BP 127/54 L 02/21/21 07:28 Pulse Ox 97 02/21/21 07:28 Body Mass Index 32.8 Const: Other: Appearance: Alert. Oriented X3. No acute distress. Eyes: Pupils equal, round and reactive to light. ENT: Pharynx normal. Neck: Normal inspection. Neck supple. No lymph nodes noted. No crepitus CVS: Normal heart rate and rhythm. Pulses normal. Normal S1 and S2 Respiratory: No respiratory distress. Breath sounds normal. No Wheezing. No rales Abdomen: Soft and nontender. No rigidity. No distention. Back: Positive CVA tenderness on the left side Skin: Skin warm and dry. Normal skin color. Normal skin turgor. Extremities: No lower extremity edema. No lower extremity edema. No Lacerations. No Rash Neuro: Oriented X 3. No motor deficit. No sensory deficit. Moving all extermities. No slurred speech. Course Course Course Narrative: I discussed the CT scan with the patient, it looks like she recently passed 2 stones. Patient's urinalysis is pending. likely to be discharged home Sign out given to Dr. Zuh Medical Decision Making Lab Data Result diagrams: 02/21/21 05:00 02/21/21 05:37 Labs: Lab Results 02/21/21 02/21/21 02/21/21 Range/Units 05:00 05:31 05:37 WBC 5.8 (4.8-10.8) X10*3/uL RBC 4.48 (4.20-5.50) X10*6/uL Hgb 14.3 (12.0-16.0) g/dl Hct 42.2 (37-47) % MCV 94.2 (80-98) fL MCH 31.9 (27.0-33.0) pg MCHC 33.9 (31.0-35.0) g/dl RDW 12.3 (11.0-16.0) % Plt Count 239 (160-400) X10*3/uL MPV 9.7 (9.4-12.3) fL Immature Gran % (Auto) 0.3 (0.0-0.4) % Neut % (Auto) 66.5 (45-73) % Lymph % (Auto) 22.6 (20-40) % [place] % (Auto) 7.7 (2-11) % Eos % (Auto) 2.4 (0-4) % Baso % (Auto) 0.5 (0-2) % Lymph # (Auto) 1.3 (1.2-4.9) X10*3/uL [place] # (Auto) 0.4 (0.1-1.2) X10*3/uL Eos # (Auto) 0.1 (0.0-0.4) X10*3/uL Baso # (Auto) 0.0 (0.0-0.2) X10*3/uL Abs Immat Gran (auto) 0.02 (0.00-0.03) X10*3/uL Absolute Neuts (auto) 3.8 (2.0-8.3) X10*3/uL Absolute Nucleated RBC 0.000 (0.0-0.012) X10*3/uL Nucleated RBC % (auto) 0.0 (0.0-0.2) /100WBC Sodium 141 (135-145) mmol/L Potassium 3.7 (3.3-5.1) mmol/L Chloride 109 H (96-108) mmol/L Carbon Dioxide 23 (22-29) mmol/L Anion Gap 13 (12-20) BUN 18 H (9-16) mg/dL Creatinine 0.71 (0.5-1.4) mg/dL Estim Creat Clear Calc 70.1 Estimated GFR > 60 Random Glucose 111 (60-115) mg/dL Calcium 9.2 (8.4-10.2) mg/dL Urine Color ORANGE Urine Appearance HAZY Urine pH TNP Ur Specific [place] TNP Urine Protein TNP Urine Glucose (UA) TNP Urine Ketones TNP Urine Blood TNP Urine Nitrite TNP Ur Leukocyte Esterase TNP Urine RBC 1-4 (0) /HPF Urine WBC 1-4 (0-4) /HPF Ur Squamous Epith Cells 1+ /LPF Calcium Oxalate Crystal 3+ /LPF Amorphous Sediment 2+ /LPF Urine Bacteria 1+ /LPF Urine Mucus 1+ /LPF Imaging Data CT scan - abdomen: Radiologist's impression: FINDINGS: LUNG BASES: The visualized lung bases are unremarkable.? LIVER, GALLBLADDER, AND BILIARY TREE: The liver is normal in size, shape, and attenuation. No focal hepatic lesion or biliary ductal dilatation is present. Gallbladder unremarkable.? PANCREAS: Unremarkable.? SPLEEN: Unremarkable.? ADRENAL GLANDS: Unremarkable.? KIDNEYS AND URETERS: The kidneys are normal in size, shape, and attenuation. No hydronephrosis or hydroureter. Mild left pelvocaliectasis and slight prominence of the left ureter. There are single punctate nonobstructive calculi in the upper poles of each kidney, 2 on the left and one on the right. No ureteral calculi. No perinephric stranding. ? BLADDER: There are 2 adjacent 2 mm calculi within the dependent bladder, likely representing recently passed stones.? GASTROINTESTINAL TRACT: Scattered sigmoid colonic diverticula. No evidence of diverticulitis. Small sliding-type hiatal hernia. Stomach otherwise unremarkable. Normal small bowel. Appendix not seen.? ABDOMINAL WALL: No significant hernia is appreciated.? LYMPH NODES: Normal. VASCULAR: Aorta mildly atherosclerotic but normal caliber. PELVIC VISCERA: Hysterectomy. No adnexal abnormalities.? OSSEOUS STRUCTURES: No acute or suspicious osseous abnormalities. Interbody cages present at L4-L5 and L5-S1. Severe discogenic degenerative disease present L2-L3 and L3-L4. CT/CT abdomen pelvis wo con IMPRESSION: *? There is mild left pelvocaliectasis and hydroureter, without ureteral calculus identified. There are a couple 2 mm calculi within the dependent bladder which may represent a recently passed stones. *? Bilateral nonobstructive intrarenal calculi as described. *? Sigmoid colonic diverticulosis without evidence of diverticulitis. *? Hysterectomy.? Discharge Plan Discharge Clinical Impression: Kidney stone Patient Disposition: Home, Self-Care Instructions: Kidney Stones (ED) Additional Instructions: Please follow-up with your primary care physician tomorrow. If you have any worsening or new symptoms, please return to the emergency room or call 911 Prescriptions: New prednisone 20 mg tablet 20 mg PO DAILY Qty: 3 RF: 0 tramadol 50 mg tablet 50 mg PO Q6H PRN (Reason: pain) Qty: 14 RF: 0 ondansetron HCl [Zofran] 4 mg tablet 4 mg PO Q6H PRN (Reason: nausea and vomiting) Qty: 14 RF: 0 No Action zolpidem 6.25 mg tablet,ext release multiphase 6.25 mg PO BEDTIME PRN (Reason: insomnia) Qty: 90 RF: 0 clonazepam 0.5 mg tablet 0.25 mg PO BID PRN (Reason: Acute anxiety) Qty: 30 RF: 0 omeprazole 40 mg capsule,delayed release(DR/EC) 40 mg PO BID 90 Days Qty: 180 RF: 1 pramipexole 1 mg Tablet 1 mg PO DAILY RF: 0 thahlkixuq-fyeotoxykueby-ewwl 50-325-40 mg Capsule 2 cap PO Q4-6H PRN (Reason: Headache) RF: 0 venlafaxine 75 mg Capsule,Extended Release 24hr 75 mg PO DAILY RF: 0 rosuvastatin 40 mg Tablet 40 mg PO DAILY RF: 0 Aimovig Autoinjector 140 mg/mL Auto-Injector 140 mg SUBCUT QMONTH RF: 0 nitroglycerin 0.4 mg tablet, sublingual 0.4 mg sublingual Q10M PRN (Reason: Esophageal spasm) Qty: 7 RF: 0 Fluad Quad 2020-21(65y up)(PF) 60 mcg (15 mcg x 4)/0.5 mL syringe IM RF: 0 tizanidine 2 mg tablet 2 mg PO TID RF: 0
[2021-02-21] MEDS: ondansetron HCL 4 MG/2 ML VIAL IVPUSH (05:03)
[2021-02-21] MEDS: Morphine Sulfate 4 MG/ML CARTRIDGE IVPUSH ×2 (05:03→07:19)
[2021-02-21] MEDS: 0.9 % Sodium Chloride 1,000 ML 999 ML IVCONT (05:06)
[2021-02-21 05:07] LABS: Basophils Percent Auto 0.5 % (0-2); Eosinophils Absolute Auto 0.1 X10*3/uL (0.0-0.4); Eosinophils Percent Auto 2.4 % (0-4); Hematocrit 42.2 % (37-47); Hemoglobin 14.3 g/dl (12.0-16.0); Imm Gran Abs Auto 0.02 X10*3/uL (0.00-0.03); Imm Gran Pct Auto 0.3 % (0.0-0.4); Lymphocytes Absolute Auto 1.3 X10*3/uL (1.2-4.9); Lymphocytes Percent Auto 22.6 % (20-40); MANUAL DIFF FLAG NO; Mean Corpuscular HGB Conc 33.9 g/dl (31.0-35.0); Mean Corpuscular Hemoglobin 31.9 pg (27.0-33.0); Mean Corpuscular Volume 94.2 fL (80-98); Mean Platelet Volume 9.7 fL (9.4-12.3); Monocytes Absolute Auto 0.4 X10*3/uL (0.1-1.2); Monocytes Percent Auto 7.7 % (2-11); Neutrophils Absolute Auto 3.8 X10*3/uL (2.0-8.3); Neutrophils Percent Auto 66.5 % (45-73); Platelet Count 239 X10*3/uL (160-400); Red Blood Count 4.48 X10*6/uL (4.20-5.50); Red Cell Distribution Width 12.3 % (11.0-16.0); White Blood Count 5.8 X10*3/uL (4.8-10.8)
[2021-02-21 05:43] LABS: Appearance Urine HAZY; Color Urine ORANGE
[2021-02-21 06:04] LABS: Amorphous Sediment Urine 2+ /LPF; Bacteria Urine 1+ /LPF; Calcium Oxalate Crystals Urine 3+ /LPF; Mucus Urine 1+ /LPF; Squamous Epithelial Cell Urine 1+ /LPF
[2021-02-21 06:06] LABS: Anion Gap 13 (12-20); Blood Urea Nitrogen 18 mg/dL (9-16); Calcium 9.2 mg/dL (8.4-10.2); Carbon Dioxide 23 mmol/L (22-29); Chloride 109 mmol/L (96-108); Creatinine Clr Calc Pharmacy 70.1; Estimated Glomerular Filt Rate > 60; Glucose Random 111 mg/dL (60-115); Potassium 3.7 mmol/L (3.3-5.1); Sodium 141 mmol/L (135-145)
[2021-02-21 07:28] VITALS: BP 127/54; PULSE 68; RESP 18; O2SAT 97
[2021-02-21 08:21] LABS: Leukocyte Esterase Urine NEG (NEG); PH 5.5 (5.0-8.0); Urine Blood 3+ (NEG); Urine Ketones NEG (NEG); Urine Protein 2+ MG/DL (NEG-TRACE)
[2021-02-21 08:35] LABS: Appearance Urine HAZY; Color Urine ORANGE
[2021-02-21 08:36] LABS: UACC Culture Trigger NO
[2021-02-21 08:37] LABS: Bacteria Urine TRACE /LPF; Calcium Oxalate Crystals Urine TRACE /LPF; Mucus Urine 1+ /LPF; RBC Urine 30-49 /HPF (0); Squamous Epithelial Cell Urine 1+ /LPF; WBC Urine 0-2 /HPF (0-4)
--- NOTE | 2021-02-21 08:41 | PC.NURSE ---
Pt to ct scan, iv established, fluids hung, meds given as documented. vs remains stable.
== END 2021-02-21 08:54 | disposition home or self-care (01) ==
PROVIDERS: Emergency Provider Emergency Medicine; PCP Internal Medicine
DX: N20.0 Calculus of kidney (principal); R10.9 Unspecified abdominal pain; Z87.442 Personal history of urinary calculi; Z86.16 Personal history of COVID-19
CPT/HCPCS: 36415; 74176; 80048; 81001; 81003; 85025; 96361; 96374; 96375; 96376; 99284; J2270; J2405

== ENCOUNTER → 2021-03-02 10:52 | Outpatient (BNVA) | payer MEDICARE, OTHER, SELFPAY | PROVIDERS: PCP Internal Medicine; Referring Provider Internal Medicine; Visit Provider Nurse Practitioner Family | DX: K21.9 Gastro-esophageal reflux disease without esophagitis (principal) | CPT/HCPCS: 99212 ==

== ENCOUNTER 2021-04-11 09:55 | Outpatient (REF) | payer MEDICARE, OTHER, SELFPAY ==
--- NOTE | ~2021-04-11 | XR_ITS ---
EXAMINATION: XR CHEST CLINICAL INFORMATION: R00.2 - Palpitations COMPARISON: Chest radiographs 03/20/2019, 07/15/2018 TECHNIQUE: 2 views of the chest were obtained. FINDINGS: The lungs are clear. The vascularity is normal. There is no airspace consolidation or effusion. No vascular congestion. The heart is normal in size. The costophrenic sulci are well-defined. The hilar and mediastinal contours and visualized bony structures are unremarkable. XR/XR chest 2V IMPRESSION: Unremarkable examination.
[2021-04-11 12:22] LABS: Influenza A PCR NEGATIVE (Negative); Influenza B PCR NEGATIVE (Negative); Resp Syncy Virus RNA Qual PCR NEGATIVE (Negative); SARS COV2 PCR INHOUSE NEGATIVE (Negative)
== END 2021-04-11 09:56 | disposition home or self-care (01) ==
LOC: HO.HMGCLDS 09:55
PROVIDERS: PCP Internal Medicine; Visit Provider Physician Assistant Medical
DX: Z20.822 Contact with and (suspected) exposure to COVID-19 (principal); R00.2 Palpitations; R05.9 Cough, unspecified; J06.9 Acute upper respiratory infection, unspecified
CPT/HCPCS: 0241U; 36415; 71046

== ENCOUNTER → 2021-05-31 09:55 | Outpatient (BNVA) | payer MEDICARE, OTHER, SELFPAY | PROVIDERS: PCP Internal Medicine; Referring Provider Internal Medicine; Visit Provider Nurse Practitioner Family | DX: K21.9 Gastro-esophageal reflux disease without esophagitis (principal); K59.01 Slow transit constipation; D12.6 Benign neoplasm of colon, unspecified | CPT/HCPCS: 99212 ==

== ENCOUNTER 2021-06-23 08:40 | Outpatient (REF) | payer MEDICARE, OTHER, SELFPAY ==
--- NOTE | ~2021-06-23 | XR_ITS ---
EXAMINATION: XR PELVIS CLINICAL INFORMATION: Right thigh strain. COMPARISON: CT 02/21/2021. TECHNIQUE: AP view of the pelvis. FINDINGS: Surgical changes lower lumbar spine and sacrum. The pelvic ring is intact. No fracture. No significant degenerative changes in the hips. XR/XR pelvis min 3V IMPRESSION: Surgical changes L4-S1.
== END 2021-06-23 08:41 | disposition home or self-care (01) ==
LOC: HO.XRAY 08:40
PROVIDERS: PCP Internal Medicine; Visit Provider Physical Medicine & Rehabilitation
DX: S76.311A Strain of muscle, fascia and tendon of the posterior muscle group at thigh level, right thigh, initial encounter (principal); X58.XXXA Exposure to other specified factors, initial encounter; Y93.9 Activity, unspecified; Y92.9 Unspecified place or not applicable; Y99.8 Other external cause status
CPT/HCPCS: 72190

== ENCOUNTER 2021-06-23 13:52 | Emergency (ER) | payer MEDICARE, OTHER, SELFPAY ==
--- NOTE | ~2021-06-23 | CT_ITS ---
EXAMINATION: CT HEAD WITHOUT CONTRAST CLINICAL INFORMATION: Headache, altered mental status. COMPARISON: CT head noncontrast 04/27/2018. TECHNIQUE: Contiguous axial imaging was performed from the skull base to vertex without intravenous administration of contrast. Additional 2-D coronal and sagittal reformatted images are generated on the CT workstation and uploaded to PACS. This CT examination was performed using dose optimization techniques as appropriate, variously including the following: *Automated exposure control *Adjustment of mA and/or kV according to patient size (this includes techniques or standardized protocols for targeted exams where dose is matched to indication/reason for exam; i.e. extremities or head) *Use of iterative reconstruction technique DLP: 619 mGy-cm FINDINGS: There is no intracranial hemorrhage, hematoma, or extra-axial fluid collection. The ventricles are normal in size. There is no hydrocephalus, edema, or mass effect. The cates-white matter differentiation appears well preserved . There is no visible acute territorial infarct or mass lesion. The calvarium appears intact. There is no pneumocephalus or orbital emphysema. The visualized sinuses and middle ears and mastoid air cells show no significant mucosal thickening. There are no air-fluid levels. CT/CT head/brain wo con IMPRESSION: No acute intracranial abnormality.
--- NOTE | ~2021-06-23 | XR_ITS ---
EXAMINATION: XR CHEST CLINICAL INFORMATION: Low blood pressure COMPARISON: 04/11/2021 TECHNIQUE: Frontal view of the chest was obtained. FINDINGS: Lung volumes are low. Central vascular prominence. Bronchial wall thickening. No dense consolidation. No effusion. No pneumothorax. The cardiomediastinal silhouette is normal in size. XR/XR chest 1V IMPRESSION: No dense consolidation. Bronchial wall thickening can be seen with a small airways process such as asthma or atypical/viral infection.
[2021-06-23 14:06] VITALS: BP 67/27; PULSE 55; RESP 18; TEMP 36.4; O2SAT 96; BMI 32.8
[2021-06-23 14:22] VITALS: BP 85/35
[2021-06-23 14:31] LABS: Glucose, Whole Blood 121 mg/dL (60-115)
--- NOTE | 2021-06-23 14:31 | ECG_ITS ---
Test Reason : hypotension Blood Pressure : / mmHG Vent. Rate : 056 BPM Atrial Rate : 056 BPM P-R Int : 156 ms QRS Dur : 096 ms QT Int : 468 ms P-R-T Axes : 044 032 099 degrees QTc Int : 451 ms Sinus bradycardia Possible Inferior infarct (cited on or before 23-JUN-2021) ST & T wave abnormality, consider anterior ischemia Abnormal ECG When compared with ECG of 18-JUN-2020 18:58, No significant change was found Referred By: Patricia Galvan Electronically Signed By:[place] MD
--- NOTE | 2021-06-23 14:39 | ED_ITS ---
HPI - General Adult General Chief complaint: Headache Stated complaint: SLURRED SPEECH,LETHARGY Time Seen by Provider: 06/23/21 14:11 Source: patient and EMS Limitations: no limitations History of Present Illness HPI narrative: Patient comes to the emergency room via EMS for headache and generalized weakness. Patient states that she has history of migraines, took 2 Fioricet is a 50 mg each, and 1 tablet of tizanidine. When I walked into the room, patient was barely conscious, clammy, blood pressure in the mid 60s. Patient did wake up, states that she has no chest pain, no shortness of breath, no abdominal pain. Patient states that earlier today she was driving home, when she got home, she told her daughter she was not feeling well. Patient's daughter called EMS. Related Data Home Medications Medication Instructions Recorded Confirmed vqgnildyxd-gnetpgsammffl-pbekxujc 2 cap PO Q4-6H PRN 04/30/20 04/11/21 50 mg-325 mg-40 mg capsule pramipexole 1 mg tablet 1 mg PO DAILY 04/30/20 04/11/21 rosuvastatin 40 mg tablet 40 mg PO DAILY 04/30/20 04/11/21 venlafaxine 75 mg capsule,extended 75 mg PO DAILY 04/30/20 04/11/21 release 24 hr magnesium oxide 400 mg PO DAILY 03/02/21 04/11/21 divalproex 250 mg tablet,extended 250 mg PO DAILY 03/24/21 04/11/21 release 24 hr meloxicam 15 mg tablet 15 mg PO DAILY 03/24/21 04/11/21 tizanidine 4 mg tablet 4 mg PO BID PRN 04/11/21 04/11/21 Previous Rx's Medication Instructions Recorded nitroglycerin 0.4 mg sublingual 0.4 mg SUBLINGUAL Q10M PRN #7 tab 06/18/20 tablet ondansetron HCl 4 mg tablet 4 mg PO Q6H PRN #14 tab 02/21/21 (Zofran) clonazepam 0.5 mg tablet 0.25 mg PO BID PRN #30 tab 03/24/21 benzonatate 100 mg capsule 100 mg PO TID PRN #30 cap 04/11/21 (Tessalon Perles) omeprazole 40 mg capsule,delayed 40 mg PO BID #60 cap 04/12/21 release Allergies Allergy/AdvReac Type Severity Reaction Status Date / Time adhesive [ADHESIVE] Allergy Intermediate RASH Verified 05/31/21 10:12 diphenhydramine AdvReac Unknown MAKES HER Verified 05/31/21 10:12 [From BENADRYL] EXCITED/HYPED UP promethazine [Phenergan] AdvReac Unknown Fell Verified 05/31/21 10:12 asleep x16hrs and woke up not knowing where she was buspirone [From BuSpar] AdvReac restless Verified 05/31/21 10:12 fluoxetine [From Prozac] AdvReac can not Verified 05/31/21 10:12 stop moving [facility] Past Medical History Medical History Cataract GERD (gastroesophageal reflux disease) Lumbar disc herniation Migraine Mixed dyslipidemia Personal history of covid-19 Post laminectomy syndrome Restless leg syndrome Seizure after head injury Tubular adenoma of colon Surgical History H/O: hysterectomy History of esophagogastroduodenoscopy (EGD) Hx of colonoscopy Hx of spinal fusion Family History Family History Father Myocardial infarction, Onset Age: 53 COPD (chronic obstructive pulmonary disease) Diverticulitis Alcoholic Mother Depression HTN (hypertension) GERD (gastroesophageal reflux disease) FTT (failure to thrive) in adult Myocardial infarction Sister Alcoholic Lung cancer Daughter No problems noted. Daughter No problems noted. Brother Alcoholic Depression Bladder cancer Brother No problems noted. Brother Laryngeal cancer Liver cancer Social History Social History Household Members: None Household Members Other:: spouse just last month from Covid and complication. Patient now alone Housing: House Do you presently have visiting nurse or other home services: No Alcohol intake: never Patient Tobacco Use Status: Never used Tobacco Use of substances other than those prescribed or required for medical reasons: No Advance Directives: No Advance Directives Information Provided: Yes service: No Current occupational status: retired Physical Exam Vital Signs: Vital Signs: Last Vital Signs Temp 97.6 F 06/23/21 16:08 Pulse 74 06/23/21 18:51 Resp 17 01/06/22 16:08 BP 125/74 06/23/21 18:51 Pulse Ox 98 06/23/21 16:08 BMI result Body Mass Index 32.8 Course Course Course Narrative: Until now, 17:13 we do not have a clear source of patient's hypotension. It is possible the patient might have taking additional tizanidine. Sepsis is not suspected. The only thing that is pending is urine which the patient has been unable to provide. After 3 L of normal saline patient's blood pressure improved to 110/67 patient feeling much better, orthostatics positive. Patient's nurse talked to the patient's daughter. The daughter reported that the patient has tendency of accidentally taking more of her medications at home than she is supposed to. The nurse reports that the patient's family mentioned that the patient has been in the ED multiple times for accidental overdoses of her medications. Patient does not have SI or HI. At this time, patient's family is requesting to keep the patient overnight in the ED. Case management/Pt was offered but declined. In the morning they will picker the patient and arrange for around the clock care with family members Physician observation started at 20:24. Vital stable, heart rate 74, blood pressure 125/74 which was corrected with IV fluids. Sign-out given to Dr. Harper Medical Decision Making Lab Data Result diagrams: 06/23/21 15:26 06/23/21 15:24 Labs: Lab Results 06/23/21 06/23/21 06/23/21 Range/Units 14:27 15:24 15:24 WBC (4.8-10.8) X10*3/uL RBC (4.20-5.50) X10*6/uL Hgb (12.0-16.0) g/dl Hct (37.0-47.0) % MCV (80.0-98.0) fL MCH (27.0-33.0) pg MCHC (31.0-35.0) g/dl RDW (11.0-16.0) % Plt Count (160-400) X10*3/uL MPV (9.4-12.3) fL Immature Gran % (Auto) (0.0-0.4) % Neut % (Auto) (45-73) % Lymph % (Auto) (20-40) % [place] % (Auto) (2-11) % Eos % (Auto) (0-4) % Baso % (Auto) (0-2) % Lymph # (Auto) (1.2-4.9) X10*3/uL [place] # (Auto) (0.1-1.2) X10*3/uL Eos # (Auto) (0.0-0.4) X10*3/uL Baso # (Auto) (0.0-0.2) X10*3/uL Abs Immat Gran (auto) (0.00-0.03) X10*3/uL Absolute Neuts (auto) (2.0-8.3) x10*3/uL Absolute Nucleated RBC (0.0-0.012) X10*3/uL Nucleated RBC % (auto) (0.0-0.2) /100WBC PT (9.9-13.0) SEC INR (0.9-1.1) Sodium 141 (135-145) mmol/L Potassium 4.2 (3.3-5.1) mmol/L Chloride 111 H (96-108) mmol/L Carbon Dioxide 26 (22-29) mmol/L Anion Gap 8 L (12-20) BUN 26 H (9-16) mg/dL Creatinine 0.99 (0.5-1.4) mg/dL Estim Creat Clear Calc 50.2 Estimated GFR 56 POC Glucose 121 H (60-115) mg/dL Random Glucose 116 H (60-115) mg/dL Lactic Acid 1.9 (0.5-2.0) mmol/L Calcium 8.4 D (8.4-10.2) mg/dL Total Bilirubin 0.3 (0.0-1.0) mg/dL Direct Bilirubin < 0.2 (0.0-0.5) mg/dL AST 27 D (5-31) U/L ALT 35 H (0-31) U/L Alkaline Phosphatase 82 D (39-117) U/L Troponin I High Sens (<3.5-17.0) ng/L Total Protein 5.5 L D (6.5-8.0) g/dL Albumin 3.6 D (3.5-5.0) g/dL TSH (0.32-4.0) uIU/mL Free T4 (0.71-1.85) ng/dL Urine Color Urine Appearance Urine pH (5.0-8.0) Ur Specific [place] (1.005-1.025) Urine Protein (NEG-TRACE) MG/DL Urine Glucose (UA) (NEG) MG/DL Urine Ketones (NEG) MG/DL Urine Blood (NEG) Urine Nitrite (NEG) Ur Leukocyte Esterase (NEG) Urine Opiates Screen (Not Detect) Urine Fentanyl Screen (Not Detect) Ur Barbiturates Screen (Not Detect) Ur Phencyclidine Scrn (Not Detect) Ur Amphetamines Screen (Not Detect) U Benzodiazepines Scrn (Not Detect) Urine Cocaine Screen (Not Detect) U Marijuana (THC) Screen (Not Detect) Ethyl Alcohol mg/dL COVID-19 (RITESH) (Negative) COVID-19 Clin Com 06/23/21 06/23/21 06/23/21 Range/Units 15:24 15:24 15:24 WBC (4.8-10.8) X10*3/uL RBC (4.20-5.50) X10*6/uL Hgb (12.0-16.0) g/dl Hct (37.0-47.0) % MCV (80.0-98.0) fL MCH (27.0-33.0) pg MCHC (31.0-35.0) g/dl RDW (11.0-16.0) % Plt Count (160-400) X10*3/uL MPV (9.4-12.3) fL Immature Gran % (Auto) (0.0-0.4) % Neut % (Auto) (45-73) % Lymph % (Auto) (20-40) % [place] % (Auto) (2-11) % Eos % (Auto) (0-4) % Baso % (Auto) (0-2) % Lymph # (Auto) (1.2-4.9) X10*3/uL [place] # (Auto) (0.1-1.2) X10*3/uL Eos # (Auto) (0.0-0.4) X10*3/uL Baso # (Auto) (0.0-0.2) X10*3/uL Abs Immat Gran (auto) (0.00-0.03) X10*3/uL Absolute Neuts (auto) (2.0-8.3) x10*3/uL Absolute Nucleated RBC (0.0-0.012) X10*3/uL Nucleated RBC % (auto) (0.0-0.2) /100WBC PT 11.0 (9.9-13.0) SEC INR 1.0 (0.9-1.1) Sodium (135-145) mmol/L Potassium (3.3-5.1) mmol/L Chloride (96-108) mmol/L Carbon Dioxide (22-29) mmol/L Anion Gap (12-20) BUN (9-16) mg/dL Creatinine (0.5-1.4) mg/dL Estim Creat Clear Calc Estimated GFR POC Glucose (60-115) mg/dL Random Glucose (60-115) mg/dL Lactic Acid (0.5-2.0) mmol/L Calcium (8.4-10.2) mg/dL Total Bilirubin (0.0-1.0) mg/dL Direct Bilirubin (0.0-0.5) mg/dL AST (5-31) U/L ALT (0-31) U/L Alkaline Phosphatase (39-117) U/L Troponin I High Sens < 3.5 (<3.5-17.0) ng/L Total Protein (6.5-8.0) g/dL Albumin (3.5-5.0) g/dL TSH 8.35 H (0.32-4.0) uIU/mL Free T4 0.76 (0.71-1.85) ng/dL Urine Color Urine Appearance Urine pH (5.0-8.0) Ur Specific [place] (1.005-1.025) Urine Protein (NEG-TRACE) MG/DL Urine Glucose (UA) (NEG) MG/DL Urine Ketones (NEG) MG/DL Urine Blood (NEG) Urine Nitrite (NEG) Ur Leukocyte Esterase (NEG) Urine Opiates Screen (Not Detect) Urine Fentanyl Screen (Not Detect) Ur Barbiturates Screen (Not Detect) Ur Phencyclidine Scrn (Not Detect) Ur Amphetamines Screen (Not Detect) U Benzodiazepines Scrn (Not Detect) Urine Cocaine Screen (Not Detect) U Marijuana (THC) Screen (Not Detect) Ethyl Alcohol mg/dL COVID-19 (RITESH) (Negative) COVID-19 Clin Com 06/23/21 06/23/21 06/23/21 Range/Units 15:24 15:26 16:14 WBC 5.9 (4.8-10.8) X10*3/uL RBC 4.14 L (4.20-5.50) X10*6/uL Hgb 13.0 (12.0-16.0) g/dl Hct 40.4 (37.0-47.0) % MCV 97.6 (80.0-98.0) fL MCH 31.4 (27.0-33.0) pg MCHC 32.2 (31.0-35.0) g/dl RDW 13.0 (11.0-16.0) % Plt Count 174 (160-400) X10*3/uL MPV 8.9 L (9.4-12.3) fL Immature Gran % (Auto) 0.5 H (0.0-0.4) % Neut % (Auto) 54.3 (45-73) % Lymph % (Auto) 34.0 (20-40) % [place] % (Auto) 8.0 (2-11) % Eos % (Auto) 2.7 (0-4) % Baso % (Auto) 0.5 (0-2) % Lymph # (Auto) 2.0 (1.2-4.9) X10*3/uL [place] # (Auto) 0.5 (0.1-1.2) X10*3/uL Eos # (Auto) 0.2 (0.0-0.4) X10*3/uL Baso # (Auto) 0.0 (0.0-0.2) X10*3/uL Abs Immat Gran (auto) 0.03 (0.00-0.03) X10*3/uL Absolute Neuts (auto) 3.2 (2.0-8.3) x10*3/uL Absolute Nucleated RBC 0.000 (0.0-0.012) X10*3/uL Nucleated RBC % (auto) 0.0 (0.0-0.2) /100WBC PT (9.9-13.0) SEC INR (0.9-1.1) Sodium (135-145) mmol/L Potassium (3.3-5.1) mmol/L Chloride (96-108) mmol/L Carbon Dioxide (22-29) mmol/L Anion Gap (12-20) BUN (9-16) mg/dL Creatinine (0.5-1.4) mg/dL Estim Creat Clear Calc Estimated GFR POC Glucose (60-115) mg/dL Random Glucose (60-115) mg/dL Lactic Acid (0.5-2.0) mmol/L Calcium (8.4-10.2) mg/dL Total Bilirubin (0.0-1.0) mg/dL Direct Bilirubin (0.0-0.5) mg/dL AST (5-31) U/L ALT (0-31) U/L Alkaline Phosphatase (39-117) U/L Troponin I High Sens (<3.5-17.0) ng/L Total Protein (6.5-8.0) g/dL Albumin (3.5-5.0) g/dL TSH (0.32-4.0) uIU/mL Free T4 (0.71-1.85) ng/dL Urine Color Urine Appearance Urine pH (5.0-8.0) Ur Specific [place] (1.005-1.025) Urine Protein (NEG-TRACE) MG/DL Urine Glucose (UA) (NEG) MG/DL Urine Ketones (NEG) MG/DL Urine Blood (NEG) Urine Nitrite (NEG) Ur Leukocyte Esterase (NEG) Urine Opiates Screen (Not Detect) Urine Fentanyl Screen (Not Detect) Ur Barbiturates Screen (Not Detect) Ur Phencyclidine Scrn (Not Detect) Ur Amphetamines Screen (Not Detect) U Benzodiazepines Scrn (Not Detect) Urine Cocaine Screen (Not Detect) U Marijuana (THC) Screen (Not Detect) Ethyl Alcohol < 10 mg/dL COVID-19 (RITESH) Negative (Negative) COVID-19 Clin Com See Note 06/23/21 06/23/21 Range/Units 16:56 16:56 WBC (4.8-10.8) X10*3/uL RBC (4.20-5.50) X10*6/uL Hgb (12.0-16.0) g/dl Hct (37.0-47.0) % MCV (80.0-98.0) fL MCH (27.0-33.0) pg MCHC (31.0-35.0) g/dl RDW (11.0-16.0) % Plt Count (160-400) X10*3/uL MPV (9.4-12.3) fL Immature Gran % (Auto) (0.0-0.4) % Neut % (Auto) (45-73) % Lymph % (Auto) (20-40) % [place] % (Auto) (2-11) % Eos % (Auto) (0-4) % Baso % (Auto) (0-2) % Lymph # (Auto) (1.2-4.9) X10*3/uL [place] # (Auto) (0.1-1.2) X10*3/uL Eos # (Auto) (0.0-0.4) X10*3/uL Baso # (Auto) (0.0-0.2) X10*3/uL Abs Immat Gran (auto) (0.00-0.03) X10*3/uL Absolute Neuts (auto) (2.0-8.3) x10*3/uL Absolute Nucleated RBC (0.0-0.012) X10*3/uL Nucleated RBC % (auto) (0.0-0.2) /100WBC PT (9.9-13.0) SEC INR (0.9-1.1) Sodium (135-145) mmol/L Potassium (3.3-5.1) mmol/L Chloride (96-108) mmol/L Carbon Dioxide (22-29) mmol/L Anion Gap (12-20) BUN (9-16) mg/dL Creatinine (0.5-1.4) mg/dL Estim Creat Clear Calc Estimated GFR POC Glucose (60-115) mg/dL Random Glucose (60-115) mg/dL Lactic Acid (0.5-2.0) mmol/L Calcium (8.4-10.2) mg/dL Total Bilirubin (0.0-1.0) mg/dL Direct Bilirubin (0.0-0.5) mg/dL AST (5-31) U/L ALT (0-31) U/L Alkaline Phosphatase (39-117) U/L Troponin I High Sens (<3.5-17.0) ng/L Total Protein (6.5-8.0) g/dL Albumin (3.5-5.0) g/dL TSH (0.32-4.0) uIU/mL Free T4 (0.71-1.85) ng/dL Urine Color YELLOW Urine Appearance CLEAR Urine pH 6.0 (5.0-8.0) Ur Specific [place] >= 1.030 H (1.005-1.025) Urine Protein TRACE (NEG-TRACE) MG/DL Urine Glucose (UA) NEG (NEG) MG/DL Urine Ketones 5 (NEG) MG/DL Urine Blood NEG (NEG) Urine Nitrite NEG (NEG) Ur Leukocyte Esterase NEG (NEG) Urine Opiates Screen Not Detected (Not Detect) Urine Fentanyl Screen Not Detected (Not Detect) Ur Barbiturates Screen POSITIVE H (Not Detect) Ur Phencyclidine Scrn Not Detected (Not Detect) Ur Amphetamines Screen Not Detected (Not Detect) U Benzodiazepines Scrn POSITIVE H (Not Detect) Urine Cocaine Screen Not Detected (Not Detect) U Marijuana (THC) Screen Not Detected (Not Detect) Ethyl Alcohol mg/dL COVID-19 (RITESH) (Negative) COVID-19 Clin Com Imaging Data CT scan - head: Radiologist's impression: There is no intracranial hemorrhage, hematoma, or extra-axial fluid collection.? The ventricles are normal in size. There is no hydrocephalus, edema, or mass effect.? The cates-white matter differentiation appears well preserved . There is no visible acute territorial infarct or mass lesion. The calvarium appears intact. There is no pneumocephalus or orbital emphysema.? The visualized sinuses and middle ears and mastoid air cells show no significant mucosal thickening. There are no air-fluid levels. CT/CT head/brain wo con IMPRESSION: No acute intracranial abnormality. Discharge Plan Discharge Clinical Impression: Accidental drug overdose Patient Disposition: Still a Patient Prescriptions: No Action omeprazole 40 mg capsule,delayed release(DR/EC) 40 mg PO BID Qty: 60 RF: 5 pramipexole 1 mg Tablet 1 mg PO DAILY RF: 0 smgrlhwyrs-qqqfozkteopae-jisi 50-325-40 mg Capsule 2 cap PO Q4-6H PRN (Reason: Headache) RF: 0 venlafaxine 75 mg Capsule,Extended Release 24hr 75 mg PO DAILY RF: 0 rosuvastatin 40 mg Tablet 40 mg PO DAILY RF: 0 nitroglycerin 0.4 mg tablet, sublingual 0.4 mg sublingual Q10M PRN (Reason: Esophageal spasm) Qty: 7 RF: 0 ondansetron HCl [Zofran] 4 mg tablet 4 mg PO Q6H PRN (Reason: nausea and vomiting) Qty: 14 RF: 0 divalproex 250 mg tablet extended release 24 hr 250 mg PO DAILY RF: 0 meloxicam 15 mg tablet 15 mg PO DAILY RF: 0 clonazepam 0.5 mg tablet 0.25 mg PO BID PRN (Reason: Acute anxiety) Qty: 30 RF: 0 tizanidine 4 mg tablet 4 mg PO BID PRNRF: 0 benzonatate [Tessalon Perles] 100 mg capsule 100 mg PO TID PRN (Reason: cough) Qty: 30 RF: 0 magnesium oxide 400 mg magnesium capsule 400 mg PO DAILY RF: 0
[2021-06-23 15:31] LABS: MANUAL DIFF FLAG NO
[2021-06-23 15:34] LABS: Basophils Percent Auto 0.5 % (0-2); Eosinophils Absolute Auto 0.2 X10*3/uL (0.0-0.4); Eosinophils Percent Auto 2.7 % (0-4); Hematocrit 40.4 % (37.0-47.0); Imm Gran Abs Auto 0.03 X10*3/uL (0.00-0.03); Imm Gran Pct Auto 0.5 % (0.0-0.4); Mean Corpuscular HGB Conc 32.2 g/dl (31.0-35.0); Mean Corpuscular Hemoglobin 31.4 pg (27.0-33.0); Mean Corpuscular Volume 97.6 fL (80.0-98.0); Mean Platelet Volume 8.9 fL (9.4-12.3); Monocytes Absolute Auto 0.5 X10*3/uL (0.1-1.2); Neutrophils Absolute Auto 3.2 x10*3/uL (2.0-8.3); Neutrophils Percent Auto 54.3 % (45-73); Platelet Count 174 X10*3/uL (160-400); Red Blood Count 4.14 X10*6/uL (4.20-5.50); White Blood Count 5.9 X10*3/uL (4.8-10.8)
[2021-06-23 15:46] LABS: Lactic Acid 1.9 mmol/L (0.5-2.0)
[2021-06-23 15:49] LABS: Ethanol < 10 mg/dL
[2021-06-23 15:56] LABS: Troponin-I High Sensitivity < 3.5 ng/L (<3.5-17.0)
[2021-06-23 16:00] LABS: Alanine Aminotransferase 35 U/L (0-31); Albumin Level 3.6 g/dL (3.5-5.0); Alkaline Phosphatase 82 U/L (39-117); Anion Gap 8 (12-20); Aspartate Amino Transferase 27 U/L (5-31); Bilirubin Direct < 0.2 mg/dL (0.0-0.5); Bilirubin Total 0.3 mg/dL (0.0-1.0); Blood Urea Nitrogen 26 mg/dL (9-16); Calcium 8.4 mg/dL (8.4-10.2); Carbon Dioxide 26 mmol/L (22-29); Chloride 111 mmol/L (96-108); Creatinine Clr Calc Pharmacy 50.2; Estimated Glomerular Filt Rate 56; Glucose Random 116 mg/dL (60-115); Potassium 4.2 mmol/L (3.3-5.1); Sodium 141 mmol/L (135-145); Total Protein 5.5 g/dL (6.5-8.0)
[2021-06-23 16:08] VITALS: BP 97/50; PULSE 52; RESP 17; TEMP 36.4; O2SAT 98
[2021-06-23] MEDS: 0.9 % Sodium Chloride 3,000 ML 999 ML IVCONT (16:08)
[2021-06-23 16:12] LABS: TSH reflex Free T4 8.35 uIU/mL (0.32-4.0)
[2021-06-23 16:34] LABS: COVID-19 Test Negative (Negative)
[2021-06-23 16:47] LABS: Free T4 (Free Thyroxine) 0.76 ng/dL (0.71-1.85)
[2021-06-23 17:05] LABS: Appearance Urine CLEAR; Color Urine YELLOW; Glucose Urine UA NEG (NEG); Leukocyte Esterase Urine NEG (NEG); Nitrite Urine NEG (NEG); Specific Gravity - Urine >= 1.030 (1.005-1.025); Urine Blood NEG (NEG); Urine Ketones 5 MG/DL (NEG); Urine Protein TRACE MG/DL (NEG-TRACE)
[2021-06-23 17:14] VITALS: BP 110/67
[2021-06-23 17:19] LABS: Amphetamine Screen Urine Not Detected (Not Detect); Barbiturates, Urine POSITIVE (Not Detect); Benzodiazepines Screen Urine POSITIVE (Not Detect); Cannabinoid Screen Urine Not Detected (Not Detect); Cocaine Screen Urine Not Detected (Not Detect); Fentanyl, urine Not Detected (Not Detect); Opiate Screen Urine Not Detected (Not Detect); Phencyclidine Screen Urine Not Detected (Not Detect)
[2021-06-23 18:51] VITALS: BP 110/62; BP 125/74; BP 127/73; PULSE 63; PULSE 74; PULSE 90
[2021-06-23 22:45] VITALS: BP 134/74; PULSE 70; RESP 18; TEMP 36.4; O2SAT 93
[2021-06-24] MEDS: Butalb/Acetamin/Caff 50/325/40 TABLET 1 TAB PO (01:26)
[2021-06-24 06:01] VITALS: BP 128/83; PULSE 70; RESP 16; O2SAT 96
[2021-06-24 07:01] VITALS: BP 142/85; PULSE 79; RESP 14; TEMP 36.8; O2SAT 93
== END 2021-06-24 09:33 | disposition home or self-care (01) ==
PROVIDERS: Emergency Provider Emergency Medicine
DX: R53.1 Weakness (principal); I95.9 Hypotension, unspecified; T42.8X1A Poisoning by antiparkinsonism drugs and other central muscle-tone depressants, accidental (unintentional), initial encounter; Y92.019 Unspecified place in single-family (private) house as the place of occurrence of the external cause; Z79.899 Other long term (current) drug therapy; Z20.822 Contact with and (suspected) exposure to COVID-19
CPT/HCPCS: 36415; 70450; 71045; 80048; 80076; 80307; 81003; 82077; 82947; 83605; 84439; 84443; 84484; 85025; 85610; 87040; 87635; 93005; 96360; 96361; 99285

== ENCOUNTER 2021-07-08 11:56 | Outpatient (REF) | payer MEDICARE, OTHER, SELFPAY ==
[2021-07-08 14:09] LABS: Alanine Aminotransferase 36 U/L (0-31); Aspartate Amino Transferase 27 U/L (5-31); Cholesterol 338 mg/dL; HDL Cholesterol 47 mg/dL; LDL Cholesterol Calculated 254 mg/dl; Triglycerides 185 mg/dL
== END 2021-07-08 11:57 | disposition home or self-care (01) ==
LOC: HO.HMGCLDS 11:56
PROVIDERS: Visit Provider Internal Medicine
DX: E78.2 Mixed hyperlipidemia (principal)
CPT/HCPCS: 36415; 80061; 84450; 84460

== ENCOUNTER 2021-09-27 11:37 | Outpatient (REF) | payer MEDICARE, OTHER, SELFPAY ==
[2021-09-27 12:35] LABS: Estimated Average Glucose 105 mg/dL; Hemoglobin A1c % 5.3 %
[2021-09-27 12:51] LABS: Alanine Aminotransferase 40 U/L (0-31); Aspartate Amino Transferase 38 U/L (5-31); Cholesterol 176 mg/dL; HDL Cholesterol 50 mg/dL; LDL Cholesterol Calculated 90 mg/dl; Triglycerides 184 mg/dL
[2021-09-27 13:13] LABS: Free T4 (Free Thyroxine) 0.76 ng/dL (0.71-1.85); Thyroid Stimulating Hormone 1.47 uIU/mL (0.32-4.0)
== END 2021-09-27 11:38 | disposition home or self-care (01) ==
LOC: HO.LAB 11:37
PROVIDERS: PCP Internal Medicine; Visit Provider Internal Medicine
DX: E03.9 Hypothyroidism, unspecified (principal); E78.2 Mixed hyperlipidemia; R73.01 Impaired fasting glucose; R79.89 Other specified abnormal findings of blood chemistry
CPT/HCPCS: 36415; 80061; 82550; 83036; 84439; 84443; 84450; 84460

== ENCOUNTER 2021-10-04 13:51 | Emergency (ER) | payer MEDICARE, OTHER, SELFPAY ==
[2021-10-04 14:51] VITALS: BP 163/82; PULSE 88; RESP 16; TEMP 36.7; O2SAT 97; BMI 31.2
[2021-10-04 15:15] LABS: MANUAL DIFF FLAG NO
[2021-10-04 15:18] LABS: Basophils Percent Auto 0.3 % (0-2); Eosinophils Absolute Auto 0.2 X10*3/uL (0.0-0.4); Eosinophils Percent Auto 3.3 % (0-4); Hematocrit 44.6 % (37.0-47.0); Hemoglobin 14.6 g/dl (12.0-16.0); Imm Gran Abs Auto 0.02 X10*3/uL (0.00-0.03); Imm Gran Pct Auto 0.3 % (0.0-0.4); Lymphocytes Percent Auto 30.4 % (20-40); Mean Corpuscular HGB Conc 32.7 g/dl (31.0-35.0); Mean Corpuscular Hemoglobin 32.4 pg (27.0-33.0); Mean Corpuscular Volume 98.9 fL (80.0-98.0); Mean Platelet Volume 9.3 fL (9.4-12.3); Monocytes Absolute Auto 0.5 X10*3/uL (0.1-1.2); Monocytes Percent Auto 7.4 % (2-11); Neutrophils Absolute Auto 3.9 x10*3/uL (2.0-8.3); Neutrophils Percent Auto 58.3 % (45-73); Platelet Count 205 X10*3/uL (160-400); Red Blood Count 4.51 X10*6/uL (4.20-5.50); Red Cell Distribution Width 14.1 % (11.0-16.0); White Blood Count 6.6 X10*3/uL (4.8-10.8)
[2021-10-04 15:33] LABS: Anion Gap 11 (12-20); Blood Urea Nitrogen 19 mg/dL (9-16); Calcium 8.9 mg/dL (8.4-10.2); Carbon Dioxide 28 mmol/L (22-29); Chloride 106 mmol/L (96-108); Creatinine Clr Calc Pharmacy 68.3; Estimated Glomerular Filt Rate > 60; Glucose Random 97 mg/dL (60-115); Potassium 4.4 mmol/L (3.3-5.1); Sodium 141 mmol/L (135-145)
[2021-10-04 15:36] LABS: Troponin-I High Sensitivity < 3.5 ng/L (<3.5-17.0)
== END 2021-10-04 17:28 | disposition left against medical advice (07) ==
PROVIDERS: Emergency Provider Emergency Medicine; PCP Internal Medicine
DX: R44.3 Hallucinations, unspecified (principal); E86.0 Dehydration; R42 Dizziness and giddiness; Z79.899 Other long term (current) drug therapy
CPT/HCPCS: 36415; 80048; 84484; 85025; 99282; 99283

== ENCOUNTER → 2021-11-29 10:51 | Outpatient (BNVA) | payer MEDICARE, OTHER, SELFPAY | PROVIDERS: PCP Internal Medicine; Referring Provider Internal Medicine; Visit Provider Nurse Practitioner Family | DX: K21.9 Gastro-esophageal reflux disease without esophagitis (principal); Z86.010 Personal history of colon polyps | CPT/HCPCS: 99212 ==

== ENCOUNTER 2021-12-26 12:39 | Outpatient (REF) | payer MEDICARE, OTHER, SELFPAY ==
[2021-12-26 14:14] LABS: Alanine Aminotransferase 41 U/L (0-31); Aspartate Amino Transferase 48 U/L (5-31); Cholesterol 161 mg/dL; HDL Cholesterol 49 mg/dL; LDL Cholesterol Calculated 84 mg/dl; Triglycerides 142 mg/dL
== END 2021-12-26 12:40 | disposition home or self-care (01) ==
LOC: HO.HMGCLDS 12:39
PROVIDERS: PCP Internal Medicine; Visit Provider Internal Medicine
DX: E78.2 Mixed hyperlipidemia (principal)
CPT/HCPCS: 36415; 80061; 82550; 84450; 84460

== ENCOUNTER 2022-03-02 08:31 | Day surgery (SDC) | payer MEDICARE, OTHER, SELFPAY ==
[2022-01-23 16:27] VITALS: BMI 32.1
--- NOTE | 2022-03-01 10:34 | P.CONAN_ITS ---
Documented by User: Nicole Samayoa NP 03/01/22 10:36 HPI - Anesthesia Eval Consult details Narrative: 66yo F for Upper Endoscopy and Colonoscopy PMF Active Problems Active Problems: All Active Problems (Updated 08/12/21 @ 13:06 by Marlen Sunshine MD) Arthritis of wrist (Acute) Elevated TSH (Acute) Impaired fasting glucose (Acute) Palpitations (Acute) Cough (Acute) Personal history of covid-19 (Acute) Tubular adenoma of colon (Acute) GERD (gastroesophageal reflux disease) (Acute) Mixed dyslipidemia (Acute) Lumbar disc herniation (Acute) Post laminectomy syndrome (Acute) Anxiety as acute reaction to exceptional stress (Acute) Restless leg syndrome (Acute) Migraine (Acute) Past Medical History Medical History Arthritis of wrist Cataract Elevated TSH GERD (gastroesophageal reflux disease) Impaired fasting glucose Lumbar disc herniation Migraine Mixed dyslipidemia Personal history of covid-19 Post laminectomy syndrome Restless leg syndrome Seizure after head injury Tubular adenoma of colon Family History Family History Father Myocardial infarction, Onset Age: 53 COPD (chronic obstructive pulmonary disease) Diverticulitis Alcoholic Mother Depression HTN (hypertension) GERD (gastroesophageal reflux disease) FTT (failure to thrive) in adult Myocardial infarction Sister Alcoholic Lung cancer Daughter No problems noted. Daughter No problems noted. Brother Alcoholic Depression Bladder cancer Brother No problems noted. Brother Laryngeal cancer Liver cancer Surgical History Surgical History H/O: hysterectomy History of esophagogastroduodenoscopy (EGD) History of surgery on left wrist History of surgery on right wrist Hx of bilateral cataract extraction Hx of colonoscopy Hx of spinal fusion Social History Social History Household Members: None Household Members Other:: spouse just last month from Covid and complication. Patient now alone Housing: House Do you presently have visiting nurse or other home services: No Alcohol intake: never Patient Tobacco Use Status: Never used Tobacco e-Cigarette/Vaping Use: Never Used Use of substances other than those prescribed or required for medical reasons: No Are you DNR?: No Advance Directives: No Advance Directives Information Provided: Yes service: No Current occupational status: retired Cognitive needs: No Hearing needs: No Vision needs: No Meds Allergies Allergy/AdvReac Type Severity Reaction Status Date / Time adhesive [ADHESIVE] Allergy Intermediate RASH Verified 03/02/22 08:41 diphenhydramine AdvReac Unknown MAKES HER Verified 03/02/22 08:41 [From BENADRYL] EXCITED/HYPED UP promethazine [Phenergan] AdvReac Unknown Fell Verified 03/02/22 08:41 asleep x16hrs and woke up not knowing where she was buspirone [From BuSpar] AdvReac restless Verified 03/02/22 08:41 fluoxetine [From Prozac] AdvReac can not Verified 03/02/22 08:41 stop moving Home Medications Medication Instructions Recorded Confirmed Last Taken Type fvivchcbkz-oeucmsykhxeme-doovtxjs 2 cap PO Q4-6H PRN Headache 04/30/20 03/02/22 Unknown History 50 mg-325 mg-40 mg capsule pramipexole 1 mg tablet 1 mg PO DAILY 04/30/20 03/02/22 04/29/20 21:00 History magnesium oxide 400 mg PO DAILY 03/02/21 03/02/22 Unknown History divalproex 250 mg tablet,extended 250 mg PO BEDTIME 03/24/21 03/02/22 Unknown History release 24 hr tizanidine 4 mg tablet 4 mg PO BID PRN Muscle Pain 04/11/21 03/02/22 Unknown History acetaminophen 650 mg 650 mg PO Q12H PRN Pain 08/03/21 03/02/22 Unknown History tablet,extended release (Tylenol 8 Hour) folic acid 1 mg tablet 1 mg PO DAILY 08/03/21 03/02/22 Unknown History methotrexate sodium 2.5 mg tablet 12.5 mg PO QWEEK 08/03/21 03/02/22 Unknown History venlafaxine 150 mg 150 mg PO DAILY 08/03/21 03/02/22 Unknown History capsule,extended release 24 hr quetiapine 25 mg tablet 1 tab PO BEDTIME 01/23/22 03/02/22 Unknown History ibuprofen 600 mg tablet 600 mg PO BEDTIME PRN Pain 03/02/22 03/02/22 Unknown History Exam Exam Date and Time: March 01, 2022 1034 Height,Weight and Vital Signs: Height 5 ft 1 in Weight 77.111 kg Pertinent Lab Results Pertinent Lab Results: Laboratory Tests 10/04/21 10/04/21 15:11 15:11 WBC 6.6 Hgb 14.6 Hct 44.6 Plt Count 205 Sodium 141 Potassium 4.4 Chloride 106 Carbon Dioxide 28 BUN 19 H Creatinine 0.71 Narrative Narrative: EKG 06/2021 Vent. Rate : 056 BPM ? ? Atrial Rate : 056 BPM ?? P-R Int : 156 ms? QRS Dur : 096 ms ? ? QT Int : 468 ms ? ? ? P-R-T Axes : 044 032 099 degrees ?? QTc Int : 451 ms ? Sinus bradycardia Possible Inferior infarct (cited on or before 23-JUN-2021) ST & T wave abnormality, consider anterior ischemia Abnormal ECG When compared with ECG of 18-JUN-2020 18:58, No significant change was found Assessment and Plan Assessment Anesthesia Assessment: Chart Reviewed Documented by User: Gudelia Restrepo MD 03/02/22 11:26 [facility] Active Problems Active Problems: All Active Problems (Updated 08/12/21 @ 13:06 by Marlen Sunshine MD) Arthritis of wrist (Acute) Elevated TSH (Acute) Impaired fasting glucose (Acute) Palpitations (Acute) Cough (Acute) Personal history of covid-19 (Acute) Tubular adenoma of colon (Acute) GERD (gastroesophageal reflux disease) (Acute) Mixed dyslipidemia (Acute) Lumbar disc herniation (Acute) Post laminectomy syndrome (Acute) Anxiety as acute reaction to exceptional stress (Acute) Restless leg syndrome (Acute) Migraine (Acute) Rheumatoid arthritis Past Medical History Medical History Arthritis of wrist Cataract Elevated TSH GERD (gastroesophageal reflux disease) Impaired fasting glucose Lumbar disc herniation Migraine Mixed dyslipidemia Personal history of covid-19 Post laminectomy syndrome Restless leg syndrome Seizure after head injury Tubular adenoma of colon Family History Family History Father Myocardial infarction, Onset Age: 53 COPD (chronic obstructive pulmonary disease) Diverticulitis Alcoholic Mother Depression HTN (hypertension) GERD (gastroesophageal reflux disease) FTT (failure to thrive) in adult Myocardial infarction Sister Alcoholic Lung cancer Daughter No problems noted. Daughter No problems noted. Brother Alcoholic Depression Bladder cancer Brother No problems noted. Brother Laryngeal cancer Liver cancer Family history of problems with anesthesia: No Surgical History Surgical History H/O: hysterectomy History of esophagogastroduodenoscopy (EGD) History of surgery on left wrist History of surgery on right wrist Hx of bilateral cataract extraction Hx of colonoscopy Hx of spinal fusion History of Problems with Anesthesia: No Social History Social History Household Members: None Household Members Other:: spouse just last month from Covid and complication. Patient now alone Housing: House Do you presently have visiting nurse or other home services: No Alcohol intake: never Patient Tobacco Use Status: Never used Tobacco e-Cigarette/Vaping Use: Never Used Use of substances other than those prescribed or required for medical reasons: No Are you DNR?: No Advance Directives: No Advance Directives Information Provided: Yes service: No Current occupational status: retired Cognitive needs: No Hearing needs: No Vision needs: No Meds Allergies Allergy/AdvReac Type Severity Reaction Status Date / Time adhesive [ADHESIVE] Allergy Intermediate RASH Verified 03/02/22 08:41 diphenhydramine AdvReac Unknown MAKES HER Verified 03/02/22 08:41 [From BENADRYL] EXCITED/HYPED UP promethazine [Phenergan] AdvReac Unknown Fell Verified 03/02/22 08:41 asleep x16hrs and woke up not knowing where she was buspirone [From BuSpar] AdvReac restless Verified 03/02/22 08:41 fluoxetine [From Prozac] AdvReac can not Verified 03/02/22 08:41 stop moving Home Medications Medication Instructions Recorded Confirmed Last Taken Type equchvhkol-zfcqimfshiriz-ycqfueob 2 cap PO Q4-6H PRN Headache 04/30/20 03/02/22 Unknown History 50 mg-325 mg-40 mg capsule pramipexole 1 mg tablet 1 mg PO DAILY 04/30/20 03/02/22 04/29/20 21:00 History magnesium oxide 400 mg PO DAILY 03/02/21 03/02/22 Unknown History divalproex 250 mg tablet,extended 250 mg PO BEDTIME 03/24/21 03/02/22 Unknown History release 24 hr tizanidine 4 mg tablet 4 mg PO BID PRN Muscle Pain 04/11/21 03/02/22 Unknown History acetaminophen 650 mg 650 mg PO Q12H PRN Pain 08/03/21 03/02/22 Unknown History tablet,extended release (Tylenol 8 Hour) folic acid 1 mg tablet 1 mg PO DAILY 08/03/21 03/02/22 Unknown History methotrexate sodium 2.5 mg tablet 12.5 mg PO QWEEK 08/03/21 03/02/22 Unknown History venlafaxine 150 mg 150 mg PO DAILY 08/03/21 03/02/22 Unknown History capsule,extended release 24 hr quetiapine 25 mg tablet 1 tab PO BEDTIME 01/23/22 03/02/22 Unknown History ibuprofen 600 mg tablet 600 mg PO BEDTIME PRN Pain 03/02/22 03/02/22 Unknown History Exam Height,Weight and Vital Signs: Height 5 ft 1 in Weight 77.111 kg Vital Signs Temp Pulse Resp BP Pulse Ox O2 Del Method 03/02/22 09:01 98.1 F 83 15 146/76 H 95 Room Air Airway Mallampati Class: III (Small mouth opening ) TM Dist: >3cm Neck ROM: Full Loose/Missing/Broken Teeth: Yes (Missing back- implant fell out) Heart: RRR Lungs: CTAB Assessment and Plan Assessment Anesthesia Assessment: Anesthesia Plan Discussed Final Anesthetic Review Family History of Problems with Anesthesia: No History of Problems with Anesthesia: No NPO: Yes ASA Class: II Final Preanesthetic Review: No Changes in Pt Med Stat, Meds/Allgs Chart Reviewed, Consent Obtained/Reviewed and Anes Risks/Benef Reviewed Patient Risk: Intermediate Procedure Risk: Low Assessment/Block/Sedation in SS: Assess/Block/Sedation-SS Anesthetic Plan Anesthetic Plan: MAC: Disposition: Standard PACU
[2022-03-02 09:01] VITALS: BP 146/76; PULSE 83; RESP 15; TEMP 36.7; O2SAT 95
[2022-03-02] MEDS: Lactated Ringers 1,000 ML 100 ML IVCONT (09:04)
--- NOTE | 2022-03-02 10:01 | MHC.SHP ---
Pre-Procedural Eval Section A Date of Service: 03/02/22 Section B Chief Complaint: Refractory heartburn, colon cancer screening Details of Present Illness: 66y.o lady with CC of inability to taper off high dose PPI and intermittent sensation of esophageal spasm. She also had multiple family members pass away from cancers and therefore undergoing a sooner colonoscopy. Otherwise does not report any abd pain, N,V, changes in bowel habits, blood in stool or unintentional weight loss. She is here for EGD and colonoscopy. Present Medications: see Short Stay Collaborative assessment Medical History: Significant History (GERD, HLD, restless legs, migraines, rthritis) History of Previous Operations: Relevant previous surgery/procedure and date(s) (H/O: hysterectomy History of esophagogastroduodenoscopy (EGD) Hx of colonoscopy Hx of spinal fusio) Allergies: Allergies Allergy/AdvReac Type Severity Reaction Status Date / Time adhesive [ADHESIVE] Allergy Intermediate RASH Verified 03/02/22 08:41 diphenhydramine AdvReac Unknown MAKES HER Verified 03/02/22 08:41 [From BENADRYL] EXCITED/HYPED UP promethazine [Phenergan] AdvReac Unknown Fell Verified 03/02/22 08:41 asleep x16hrs and woke up not knowing where she was buspirone [From BuSpar] AdvReac restless Verified 03/02/22 08:41 fluoxetine [From Prozac] AdvReac can not Verified 03/02/22 08:41 stop moving Review of Systems Review of Systems Comment: 10 point ROS negative except as noted above. Exam Surgical H&P Exam: Normal: HEENT, Normal: Heart, Normal: Lungs, Normal: Extremities, Normal: Abdomen, Normal: Skin and Normal: Neurological Plan Diagnosis/Plan: Unchanged I have reviewed the history and physical and performed a pertinent physical examination on my patient. No changes have occurred unless specified.
--- NOTE | 2022-03-02 11:14 | P.OP_ITS ---
Operative Note Operative Note Date of Service: 03/02/22 Narrative: Procedure: Esophagogastroduodenoscopy and colonoscopy Endoscopist: Natasha Borjas MD Indication: Refractory GERD, personal hx of polyps Anesthesia Provider: Dr Restrepo Anesthesia Type: MAC Instrument: Olympus GIF-H190 and [id number]-[id number] EGD Procedure:?? The procedure, indications, preparation and potential complications were reviewed with the patient, who indicated understanding and gave written informed consent to proceed. A physical exam was performed. The endoscope was introduced through the mouth, and advanced to the second part of duodenum. The mucosa was carefully examined on slow withdrawal of the endoscope. The patient tolerated the procedure well. There were no immediate complications.?T Limitations: No limitations. ? EGD Findings:?Esophagus:? Normal mucosa noted in the entire esophagus. The Z line was irregular < 1cm at 33 cm. Small hiatal hernia with diaphragmatic pinch at 36 cm. ?Stomach:? Atrophic appearing mucosa was noted in antrum. Cold forceps gastric biopsies were taken. A few hyperplastic appearing polyps were noted in body. Cold forceps polypectomies were done of the larger polyps and sent for pathology. ?Duodenum:? Erythema and erosions were noted in duodenal bulb. Cold forceps biopsies were taken. The duodenal sweep and second portion of the duodenum appeared normal. Colonoscopy procedure: he patient was then turned around for colonoscopy. A digital rectal exam was normal. The colonoscope was then inserted through the anus and advanced through the colon to the cecum at 90 cm, and terminal ileum. Mucosa was carefully examined under high definition white light as the instrument was slowly withdrawn in a retrograde panoramic fashion. Retroflexion was performed in rectum. The procedure was somewhat difficult due to a fixed and tortuous sigmoid colon. There were no immediate obvious complications. The quality of the prep was BBPS: 2+3+2 = adequate Withdrawal time 23 minutes. Findings: Mucosa: Normal to cecum and terminal ileum. Protruding lesions: * 3 sessile polyp of size 4-8 mm in cecum. Cold snare polypectomies were performed. The polyps were completely removed and retrieved. * Large internal hemorrhoids without stigmata of recent bleeding. Excavated lesions: * Medium diverticulosis of sigmoid colon. EGD Impression:? 1. Irregular Z Line 2. Hiatal hernia 3. Abnormal mucosa in antrum (biopsy) 4. Numerous gastric polyps in body (biopsy) 5.?Bulbar duodenitis (biopsy) Colonoscopy Impression: 1. Normal colon mucosa 2. Total of 3 polyps removed from cecum. 3. Sigmoid diverticulosis 3. Internal hemorrhoids Recommendations: - Follow path results. - Continue PPI - Avoid NSAIDs - Repeat colonoscopy in 3-5 years if all three polyps are adenomas. - Increase fibre intake. - Sitz bath and daily miralax/senna to keep stools soft. - Above has been reviewed with the patient. Educational hand outs were provided at discharge.
[2022-03-02 11:25] VITALS: BP 106/53; PULSE 75; RESP 18; TEMP 36.6; O2SAT 97
[2022-03-02 11:40] VITALS: BP 126/75; PULSE 71; RESP 18; TEMP 36.1; O2SAT 96
[2022-03-02 11:55] VITALS: BP 128/59; PULSE 66; RESP 18; TEMP 36.3; O2SAT 95
== END 2022-03-02 12:43 | disposition home or self-care (01) ==
PROVIDERS: PCP Internal Medicine; Visit Provider Internal Medicine
PROC: (CPT 45385; principal; 2022-03-02 09:30)
DX: Z12.11 Encounter for screening for malignant neoplasm of colon (principal); Z86.010 Personal history of colon polyps; D12.0 Benign neoplasm of cecum; K57.30 Diverticulosis of large intestine without perforation or abscess without bleeding; K64.8 Other hemorrhoids; K21.9 Gastro-esophageal reflux disease without esophagitis; K29.80 Duodenitis without bleeding; K31.7 Polyp of stomach and duodenum; K44.9 Diaphragmatic hernia without obstruction or gangrene; E78.2 Mixed hyperlipidemia; R73.01 Impaired fasting glucose; G43.909 Migraine, unspecified, not intractable, without status migrainosus; Z79.899 Other long term (current) drug therapy; Z88.8 Allergy status to other drugs, medicaments and biological substances; Z86.16 Personal history of COVID-19
CPT/HCPCS: 45385; 43239; 88305; 88342

== ENCOUNTER → 2022-03-17 10:01 | Outpatient (BNVA) | payer MEDICARE, OTHER, SELFPAY | PROVIDERS: PCP Internal Medicine; Referring Provider Internal Medicine; Visit Provider Nurse Practitioner Family | DX: K21.9 Gastro-esophageal reflux disease without esophagitis (principal); D12.0 Benign neoplasm of cecum; Z98.890 Other specified postprocedural states | CPT/HCPCS: 99212 ==

== ENCOUNTER → 2022-04-20 09:04 | Outpatient (REF) | payer MEDICARE, OTHER, SELFPAY | LOC: HO.SL 09:04 | PROVIDERS: PCP Internal Medicine; Visit Provider Psychiatry & Neurology Neurology | DX: G47.33 Obstructive sleep apnea (adult) (pediatric) (principal) | CPT/HCPCS: 95806 ==

== ENCOUNTER 2022-06-15 15:09 | Outpatient (AMB) | payer MEDICARE, OTHER, SELFPAY ==
[2022-06-15 15:15] VITALS: BP 160/90; PULSE 96; O2SAT 95; BMI 29.2
--- NOTE | 2022-06-15 15:15 | A.OFFPC_ITS ---
Vital Signs 06/15/22 15:15 Height 5 ft 5 in Weight 175 lb 6 oz BMI 29.2 BP 160/90 H Blood Pressure Location Lt brachial Position Sitting Pulse 96 Pulse Source Pulse Oximeter Pulse Oximetry (%) 95 Oxygen Delivery Method Room Air Intake Visit Reasons: shingles Allergies adhesive [ADHESIVE] Allergy (Intermediate, Verified 06/15/22 15:16) RASH diphenhydramine [From BENADRYL] Adverse Reaction (Unknown, Verified 06/15/22 15:16) MAKES HER EXCITED/HYPED UP NSAIDS (Non-Steroidal Anti-Inflamma Adverse Reaction (Unknown, Verified 06/15/22 15:16) Unknown promethazine [Phenergan] Adverse Reaction (Unknown, Verified 06/15/22 15:16) Fell asleep x16hrs and woke up not knowing where she was buspirone [From BuSpar] Adverse Reaction (Verified 06/15/22 15:16) restless fluoxetine [From Prozac] Adverse Reaction (Verified 06/15/22 15:16) can not stop moving Tobacco use date assessed: 12/30/21 [facility] Medical History (Updated 06/15/22 @ 16:14 by Marlen Sunshine MD) Arthritis of wrist Cataract Elevated TSH GERD (gastroesophageal reflux disease) Herpes zoster Impaired fasting glucose Lumbar disc herniation Migraine Mixed dyslipidemia Personal history of covid-19 Post laminectomy syndrome Restless leg syndrome Seizure after head injury Tubular adenoma of colon Surgical History (Updated 03/16/22 @ 13:40 by Jeremy Wilkes) H/O: hysterectomy History of esophagogastroduodenoscopy (EGD) History of surgery on left wrist History of surgery on right wrist Hx of bilateral cataract extraction Hx of colonoscopy Hx of spinal fusion Family History Father Myocardial infarction, Onset Age: 53 COPD (chronic obstructive pulmonary disease) Diverticulitis Alcoholic Mother Depression HTN (hypertension) GERD (gastroesophageal reflux disease) FTT (failure to thrive) in adult Myocardial infarction Sister Alcoholic Lung cancer Daughter No problems noted. Daughter No problems noted. Brother Alcoholic Depression Bladder cancer Brother No problems noted. Brother Laryngeal cancer Liver cancer Social History Household Members: None Household Members Other:: spouse just last month from Covid and complication. Patient now alone Housing: House Do you presently have visiting nurse or other home services: No Alcohol intake: never Patient Tobacco Use Status: Never used Tobacco e-Cigarette/Vaping Use: Never Used service: No Current occupational status: retired Cognitive needs: No Hearing needs: No Vision needs: No Questionnaire Thrive Questionnaire Date Thrive assessed: 09/28/21 NEAL-7 AMB Questionnaire NEAL-7 Date NEAL - 7 assessed: 09/28/21 Source: Developed by Drs. Ezequiel Bueno, Charu Lagos, Quentin Gallo and colleagues, with an educational deandra from [employer]. Physical exam (Primary Care) Vital Signs: Last Vital Signs Pulse 96 06/15/22 15:15 BP 160/90 H 06/15/22 15:15 Pulse Ox 95 06/15/22 15:15 Oxygen Delivery Method Room Air 06/15/22 15:15 BMI result Body Mass Index 29.2 Tobacco/Smoking Status: Tobacco use Status Tobacco use date assessed 12/30/21 06/15/22 15:23 Patient Tobacco Use Status Never used Tobacco 06/15/22 15:23 e-Cigarette/Vaping Use Never Used 06/15/22 15:23 Thrive Assessment: Date of Thrive Assessment Date Thrive assessed 09/28/21 06/15/22 15:23 Assessment and Plan Assessment & Plan (1) Herpes zoster: Comment: right chest and right upper back Code(s): B02.9 - Zoster without complications Plan: Continue taking valacyclovir 1000 mg twice for 10 days, take tramadol as needed for pain, may increase gabapentin does to up to 300 mg 3 times a day as needed for pain control. See Her back for follow-up 06/21/2022 Coding Level of Care Code Est Pt Level 3 (06376) Diagnoses Herpes zoster B02.9
== END 2022-06-15 17:11 | disposition home or self-care (01) ==
LOC: HO.HMGC 15:09
PROVIDERS: PCP Internal Medicine; Visit Provider Internal Medicine
DX: B02.9 Zoster without complications (principal)
CPT/HCPCS: 99499

== ENCOUNTER 2022-06-20 08:44 | Outpatient (REF) | payer MEDICARE, OTHER, SELFPAY ==
[2022-06-20 11:53] LABS: Alanine Aminotransferase 98 U/L (0-31); Aspartate Amino Transferase 94 U/L (5-31); Cholesterol 188 mg/dL; HDL Cholesterol 60 mg/dL; LDL Cholesterol Calculated 101 mg/dl; Triglycerides 135 mg/dL
== END 2022-06-20 08:45 | disposition home or self-care (01) ==
LOC: HO.HMGCLDS 08:44
PROVIDERS: PCP Internal Medicine; Visit Provider Internal Medicine
DX: E78.2 Mixed hyperlipidemia (principal)
CPT/HCPCS: 36415; 80061; 82550; 84450; 84460

== ENCOUNTER 2022-06-26 09:01 | Outpatient (REF) | payer MEDICARE, OTHER, SELFPAY ==
[2022-06-26 11:09] LABS: Estimated Average Glucose 120 mg/dL; Hemoglobin A1C 151.4884 umol/L; Hemoglobin A1c % 5.8 %
[2022-06-26 11:35] LABS: HBS Num1 25.81 mIU/mL (0-7.99); Hepatitis A Antibody IgM 0.15 Index (0-0.79); ~Hepatitis A Antibody IgM Nonreactive (Nonreactive)
[2022-06-26 11:36] LABS: HBc Num1 0.05 S/CO (0.00-0.79); HBsAGNum1 0.32 S/CO (0.00-0.99); HIV AB/AG Nonreactive (Nonreactive); HIV Num 1 0.06 S/CO (0.00-0.99); Hepatitis B Core Antibody Nonreactive (Nonreactive); Hepatitis B Surface Antigen Negative (Negative); ~HepC Num1 0.27 S/CO (0.00-0.79); ~Hepatitis B Surface Antibody REACTIVE (Nonreactive); ~Hepatitis C Antibody Nonreactive (Nonreactive)
[2022-06-26 11:51] LABS: Bilirubin Direct < 0.2 mg/dL (0.0-0.5); Bilirubin Total 0.3 mg/dL (0.0-1.0); C Reactive Protein 1.18 mg/dL (< or = 0.50); Iron 54 mcg/dL (30-160); Percent Iron Saturation 17 % (15-50); Total Iron Binding Capacity 312 mcg/dL (228-428); Unsaturated Iron Binding 258 ug/dL
[2022-06-26 12:24] LABS: Ferritin 41 ng/mL (10-250)
[2022-06-28 13:03] LABS: Ceruloplasmin 27 mg/dL (18-53)
[2022-06-29 11:28] LABS: Alpha Fetoprotein 3.8 ng/mL
[2022-06-30 14:22] LABS: Smooth Muscle Antibody <20 U (<20)
[2022-06-30 15:45] LABS: Mitochondrial Antibodies NEGATIVE (NEGATIVE)
[2022-07-02 23:54] LABS: FIB-ALT 61 U/L (6-29); FIB-Alpha-2-Macroglobulin 248 mg/dL (106-279); FIB-Apolipoprotein A1 170 mg/dL (101-198); FIB-GGT 139 U/L (3-65); FIB-Haptoglobin 170 mg/dL (43-212); FIB-Total Bilirubin 0.3 mg/dL (0.2-1.2); Liver Fibrosis Score 0.32; Liver Fibrosis Stage F1-F2; Nec Inflam Act Grade A1-A2; Nec Inflam Act Score 0.37
== END 2022-06-26 09:02 | disposition home or self-care (01) ==
LOC: HO.LAB 09:01
PROVIDERS: PCP Internal Medicine; Visit Provider Nurse Practitioner Family
DX: K21.9 Gastro-esophageal reflux disease without esophagitis (principal); K58.9 Irritable bowel syndrome, unspecified; K92.2 Gastrointestinal hemorrhage, unspecified; R74.01 Elevation of levels of liver transaminase levels; R74.8 Abnormal levels of other serum enzymes; R79.89 Other specified abnormal findings of blood chemistry; R17 Unspecified jaundice; R10.9 Unspecified abdominal pain; D12.6 Benign neoplasm of colon, unspecified; E11.9 Type 2 diabetes mellitus without complications; Z79.899 Other long term (current) drug therapy; Z80.0 Family history of malignant neoplasm of digestive organs
CPT/HCPCS: 36415; 81596; 82105; 82247; 82248; 82390; 82728; 83036; 83540; 86015; 86140; 86255; 86256; 86704; 86706; 86709; 86803; 87340; 87389; 99212

== ENCOUNTER → 2022-08-08 08:28 | Outpatient (BNVA) | payer MEDICARE, OTHER, SELFPAY | PROVIDERS: PCP Internal Medicine; Referring Provider Internal Medicine; Visit Provider Nurse Practitioner Family | DX: K21.9 Gastro-esophageal reflux disease without esophagitis (principal); R74.01 Elevation of levels of liver transaminase levels | CPT/HCPCS: 99212 ==

== ENCOUNTER 2022-09-09 07:34 | Outpatient (REF) | payer MEDICARE, OTHER, SELFPAY ==
--- NOTE | ~2022-09-09 | MM_ITS ---
EXAMINATION: MM SCREENING DIGITAL BREAST TOMOSYNTHESIS, BILATERAL CLINICAL INFORMATION: Screening. Asymptomatic. The lifetime risk of breast cancer based on the Tyrer-Cuzick Model is 4%. COMPARISON: Mammography: 08/11/2020, 08/07/2019, 07/18/2018 TECHNIQUE: Digital breast tomosynthesis is performed in both the craniocaudal and mediolateral oblique views along with computer-aided detection (CAD). Synthesized 2D images are generated from the tomosynthesis. Additional right MLO view is provided. FINDINGS: There are scattered areas of fibroglandular density (ACR BI-RADS breast composition Category b). Breast tissue composition borders on predominantly fatty. Background stromal and fibroglandular densities are similar to prior studies and there is no developing density or interval architectural abnormality. There are no significant masses, abnormal calcifications, or other abnormalities. The axilla and skin contours are unremarkable. MM/MM tomosynthesis screening BI IMPRESSION: No mammographic evidence of malignancy. ASSESSMENT: BI-RADS 1: Negative RECOMMENDATION: Routine annual mammography screening. This patient's information was entered into a reminder system with a target due date for their next mammogram.
== END 2022-09-09 07:35 | disposition home or self-care (01) ==
LOC: HO.MAMMO 07:34
PROVIDERS: Visit Provider Internal Medicine
DX: Z12.31 Encounter for screening mammogram for malignant neoplasm of breast (principal)
CPT/HCPCS: 77063; 77067

== ENCOUNTER 2022-09-15 22:56 | Emergency (ER) | payer MEDICARE, OTHER, SELFPAY ==
[2022-09-15 23:11] VITALS: BP 86/50; PULSE 90; RESP 16; TEMP 36.4; O2SAT 94; BMI 35.2
--- NOTE | 2022-09-15 23:34 | PC.NURSE ---
est IV access 20g to L AC
[2022-09-15 23:40] LABS: Basophils Percent Auto 0.6 % (0-2); Eosinophils Absolute Auto 0.2 X10*3/uL (0.0-0.4); Eosinophils Percent Auto 4.3 % (0-4); Hematocrit 42.5 % (37.0-47.0); Hemoglobin 13.6 g/dl (12.0-16.0); Imm Gran Abs Auto 0.01 X10*3/uL (0.00-0.03); Imm Gran Pct Auto 0.2 % (0.0-0.4); Lymphocytes Absolute Auto 1.9 X10*3/uL (1.2-4.9); Lymphocytes Percent Auto 40.6 % (20-40); MANUAL DIFF FLAG NO; Mean Corpuscular Hemoglobin 30.3 pg (27.0-33.0); Mean Corpuscular Volume 94.7 fL (80.0-98.0); Mean Platelet Volume 9.1 fL (9.4-12.3); Monocytes Absolute Auto 0.3 X10*3/uL (0.1-1.2); Monocytes Percent Auto 6.9 % (2-11); Neutrophils Absolute Auto 2.2 x10*3/uL (2.0-8.3); Neutrophils Percent Auto 47.4 % (45-73); Platelet Count 227 X10*3/uL (160-400); Red Blood Count 4.49 X10*6/uL (4.20-5.50); Red Cell Distribution Width 13.9 % (11.0-16.0); White Blood Count 4.7 X10*3/uL (4.8-10.8)
--- NOTE | 2022-09-15 23:42 | ED.GENADULT ---
HPI - General Adult General Chief complaint: General Medical Stated complaint: Lethargic/took an extra dose of med Time Seen by Provider: 09/15/22 23:38 Source: patient and EMS Mode of arrival: EMS Limitations: no limitations History of Present Illness HPI narrative: 66-year-old female with chronic history of insomnia patient was started on Seroquel 100 mg daily by her PCP, patient is becoming lethargic with difficulty ambulating, slightly disoriented to place and time. Patient also found to be hypotensive. Patient otherwise complains of no headache, no blurry vision, no photophobia, no CP, no SOB, no abdominal pain. Patient had similar presentation previously after she took 1 extra few reset to treat her migraine with also decrease mental status and hypotension. Patient otherwise declined any intentional overdose or taking any medication. Related Data Home Medications Medication Instructions Recorded Confirmed celecoxib 200 mg capsule 200 mg PO BID 06/15/22 clonazepam 0.5 mg tablet 0.5 mg PO BID PRN 06/15/22 ramelteon 8 mg tablet 8 mg PO BEDTIME 06/15/22 divalproex 250 mg tablet,extended 250 mg PO DAILY 06/21/22 release 24 hr rosuvastatin 40 mg tablet 40 mg PO 3XW 06/21/22 06/21/22 Previous Rx's Medication Instructions Recorded acyclovir 5 % topical ointment 1 appl topical 6XD 7 days #30 grams 06/17/22 oxycodone 5 mg tablet 5 mg PO BID PRN pain #10 tabs 06/17/22 folic acid 1 mg tablet 1 mg PO DAILY #90 tabs 06/21/22 gabapentin 300 mg capsule 300 mg PO TID #90 caps 07/25/22 famotidine 20 mg tablet 20 mg PO DAILY #90 tabs 08/08/22 omeprazole 40 mg capsule,delayed 40 mg PO BID #180 caps 08/08/22 release Allergies Allergy/AdvReac Type Severity Reaction Status Date / Time adhesive [ADHESIVE] Allergy Intermediate RASH Verified 08/08/22 08:46 diphenhydramine AdvReac Unknown MAKES HER Verified 08/08/22 08:46 [From BENADRYL] EXCITED/HYPED UP NSAIDS (Non-Steroidal AdvReac Unknown Unknown Verified 08/08/22 08:46 Anti-Inflamma promethazine [Phenergan] AdvReac Unknown Fell Verified 08/08/22 08:46 asleep x16hrs and woke up not knowing where she was buspirone [From BuSpar] AdvReac restless Verified 08/08/22 08:46 fluoxetine [From Prozac] AdvReac can not Verified 08/08/22 08:46 stop moving Review of Systems Review of Systems: All other systems are reviewed and are negative Constitutional: Reports as per HPI and Reports no additional constitutional complaints Eyes: Reports as per HPI and Reports no additional eye complaints Reports system reviewed and no additional complaints, except as documented Cardiovascular: Reports as per HPI and Reports no additional cardiovascular complaints Respiratory: Reports as per HPI and Reports no additional respiratory complaints Gastrointestinal: Reports as per HPI and Reports no additional gastrointestinal complaints Genitourinary: Reports no additional female genitourinary complaints Musculoskeletal: Reports no additional musculoskeletal complaints Skin/Breast: Reports system reviewed and no additional complaints, except as docu Psychiatric: Reports no additional psychiatric complaints Endocrine: Reports no additional endocrine complaints Hematologic/Lymphatic: Reports no additional hematologic/lymphatic complaints Allergic/Immunologic: Reports no additional allergic/immunologic complaints Reports system reviewed and no additional complaints, except as documented and Reports Abnormal speech present [facility] Past Medical History Medical History Arthritis of wrist Cataract Elevated liver transaminase level Elevated TSH GERD (gastroesophageal reflux disease) Herpes zoster Impaired fasting glucose Lumbar disc herniation Migraine Mixed dyslipidemia Personal history of covid-19 Post laminectomy syndrome Pseudogout Restless leg syndrome Seizure after head injury Tubular adenoma of colon Surgical History H/O: hysterectomy History of esophagogastroduodenoscopy (EGD) History of surgery on left wrist History of surgery on right wrist Hx of bilateral cataract extraction Hx of colonoscopy Hx of spinal fusion Family History Family History Father Myocardial infarction, Onset Age: 53 COPD (chronic obstructive pulmonary disease) Diverticulitis Alcoholic Mother Depression HTN (hypertension) GERD (gastroesophageal reflux disease) FTT (failure to thrive) in adult Myocardial infarction Sister Alcoholic Lung cancer Daughter No problems noted. Daughter No problems noted. Brother Alcoholic Depression Bladder cancer Brother No problems noted. Brother Laryngeal cancer Liver cancer Social History Social History Household Members: None Household Members Other:: spouse just last month from Covid and complication. Patient now alone Housing: House Do you presently have visiting nurse or other home services: No Alcohol intake: never Patient Tobacco Use Status: Never used Tobacco Smoked in Last 30 Days: No e-Cigarette/Vaping Use: Never Used Use of substances other than those prescribed or required for medical reasons: No Advance Directives: No Advance Directives Information Provided: No service: No Current occupational status: retired Cognitive needs: No Hearing needs: No Vision needs: No Physical Exam ED Vital Signs: Vital Signs - 24 hr 09/15/22 23:11 09/16/22 01:00 09/16/22 01:15 Temperature 97.6 F 97.7 F Pulse Rate 90 78 Respiratory Rate 16 16 Blood Pressure 86/50 L 94/41 L 99/45 L Pulse Oximetry 94 95 Oxygen Delivery Method Room Air Room Air 09/16/22 01:57 09/16/22 03:20 09/16/22 04:26 Temperature Pulse Rate 84 70 78 Respiratory Rate 18 16 21 H Blood Pressure 108/54 L 118/65 109/65 Pulse Oximetry 94 93 94 Oxygen Delivery Method Room Air Room Air Room Air BMI result Body Mass Index 35.2 Vital signs have been reviewed as appeared to be correct. Blood pressure low. Heart rate normal. Respiration rate normal. Temperature normal. Oxygen saturation normal. Appearance: Alert. Oriented X3. No acute distress. Head: Normal external exam. Normocephalic. Atraumatic. No [place] signs noted. No raccoon eyes noted Eyes: PERRLA. EOMI. Conjunctiva and sclera normal. Eyelids normal. ENT: TM's Normal. Pharynx normal. Uvula midline. Moist mucous membranes. No trismus noted. No drooling noted. No muffled voice noted. Neck: Normal inspection. Neck supple. FROM. No adenopathy. Thyroid Normal. No meningeal signs. No neck mass noted. CVS: Normal heart rate and rhythm. Heart sound normal. No murmurs noted. Pulses normal throughout. Respiratory: No respiratory distress. Painless inspiration. Breath sounds normal. No wheezes/rales/rhonchi noted. Chest nontender. No accessory muscle usage noted or decreased air movement noted. Abdomen: Soft and nontender. Bowel sounds normal in all 4 quadrants. No distention noted. No organomegaly noted. No visible injury noted. Back: No CVA tenderness. Full range of motion noted. Skin: Skin warm and dry. Normal skin color. Normal skin turgor. No rashes/lesions/lacerations noted. Extremities: No lower extremity edema. Extremities exhibit normal range of motion. Extremities nontender. Neuro: Oriented X 3. Cranial nerve exam: II-XII are grossly intact No motor deficit. No sensory deficit. Reflexes normal. Course Reevaluation(s) Reevaluation #1: Patient now is AAO x 3 able to answer all questions, patient had history of hypotension secondary to medication side effect in the past, blood pressure in has been stable after given IV fluid. Will discharge the patient home. Time: 07:38 Medications Administered Discontinued Medications Generic Name Dose Route Start Last Admin Trade Name Freq PRN Reason Stop Dose Admin Sodium Chloride 1,000 mls @ 999 mls/hr 09/15/22 23:39 09/16/22 02:10 Ns IV 09/16/22 00:39 Infused .Q1H1M ONE Infusion Sodium Chloride 1,000 mls @ 999 mls/hr 09/15/22 23:56 09/16/22 02:10 Ns IV 09/16/22 00:56 Infused .Q1H1M ONE Infusion Medical Decision Making Differential Diagnosis Differential Diagnoses: The differential diagnosis associated with the presentation includes (Medication side effect, hypovolemia, infection, dehydration, electrolyte disturbance, anemia.) Admission/Observation Consideration of admission/observation: Escalation of care including admission/observation considered Lab Data MDM Lab Attestation statement: I reviewed the patient's lab results. 09/15/22 23:34 09/15/22 23:34 Labs: Lab Results 09/15/22 09/15/22 09/16/22 Range/Units 23:34 23:34 01:52 WBC 4.7 L (4.8-10.8) X10*3/uL RBC 4.49 (4.20-5.50) X10*6/uL Hgb 13.6 (12.0-16.0) g/dl Hct 42.5 (37.0-47.0) % MCV 94.7 (80.0-98.0) fL MCH 30.3 (27.0-33.0) pg MCHC 32.0 (31.0-35.0) g/dl RDW 13.9 (11.0-16.0) % Plt Count 227 (160-400) X10*3/uL MPV 9.1 L (9.4-12.3) fL Immature Gran % (Auto) 0.2 (0.0-0.4) % Neut % (Auto) 47.4 (45-73) % Lymph % (Auto) 40.6 H (20-40) % [place] % (Auto) 6.9 (2-11) % Eos % (Auto) 4.3 H (0-4) % Baso % (Auto) 0.6 (0-2) % Lymph # (Auto) 1.9 (1.2-4.9) X10*3/uL [place] # (Auto) 0.3 (0.1-1.2) X10*3/uL Eos # (Auto) 0.2 (0.0-0.4) X10*3/uL Baso # (Auto) 0.0 (0.0-0.2) X10*3/uL Abs Immat Gran (auto) 0.01 (0.00-0.03) X10*3/uL Absolute Neuts (auto) 2.2 (2.0-8.3) x10*3/uL Absolute Nucleated RBC 0.000 (0.0-0.012) X10*3/uL Nucleated RBC % (auto) 0.0 (0.0-0.2) /100WBC Sodium 141 (135-145) mmol/L Potassium 3.6 (3.3-5.1) mmol/L Chloride 109 H (96-108) mmol/L Carbon Dioxide 20 L (22-29) mmol/L Anion Gap 16 (12-20) BUN 14 (9-16) mg/dL Creatinine 0.84 (0.5-1.4) mg/dL Estim Creat Clear Calc 60.6 Estimated GFR > 60 Random Glucose 134 H (60-115) mg/dL Calcium 9.2 (8.4-10.2) mg/dL Magnesium 2.0 (1.6-2.6) mg/dL Total Bilirubin 0.4 (0.0-1.0) mg/dL AST 98 H (5-31) U/L ALT 65 H (0-31) U/L Alkaline Phosphatase 115 (39-117) U/L Total Protein 6.1 L (6.5-8.0) g/dL Albumin 3.8 (3.5-5.0) g/dL Urine Color Yellow Urine Appearance Cloudy Urine pH 6.0 (5.0-9.0) Ur Specific [place] <= 1.005 (1.005-1.025) Urine Protein Negative (Neg-Trace) mg/dL Urine Glucose (UA) Negative (Negative) mg/dL Urine Ketones Negative (Negative) mg/dL Urine Blood Negative (Negative) Urine Nitrite Negative (Negative) Ur Leukocyte Esterase Trace H (Negative) Urine RBC 0-2 (0-2) /HPF Urine WBC 0-5 (0-5) /HPF Ur Squamous Epith Cells 6-10 (0-2) /HPF Urine Bacteria None Seen (None Seen) Hyaline Casts 0-2 (0-2) /LPF Salicylates < 5.0 L (15-30) mg/dL Urine Opiates Screen (Not Detect) Urine Fentanyl Screen (Not Detect) Acetaminophen < 17 (<30) mcg/mL Ur Barbiturates Screen (Not Detect) Ur Phencyclidine Scrn (Not Detect) Ur Amphetamines Screen (Not Detect) U Benzodiazepines Scrn (Not Detect) Urine Cocaine Screen (Not Detect) U Marijuana (THC) Screen (Not Detect) Ethyl Alcohol < 10 mg/dL 04 Range/Units 01:52 WBC (4.8-10.8) X10*3/uL RBC (4.20-5.50) X10*6/uL Hgb (12.0-16.0) g/dl Hct (37.0-47.0) % MCV (80.0-98.0) fL MCH (27.0-33.0) pg MCHC (31.0-35.0) g/dl RDW (11.0-16.0) % Plt Count (160-400) X10*3/uL MPV (9.4-12.3) fL Immature Gran % (Auto) (0.0-0.4) % Neut % (Auto) (45-73) % Lymph % (Auto) (20-40) % [place] % (Auto) (2-11) % Eos % (Auto) (0-4) % Baso % (Auto) (0-2) % Lymph # (Auto) (1.2-4.9) X10*3/uL [place] # (Auto) (0.1-1.2) X10*3/uL Eos # (Auto) (0.0-0.4) X10*3/uL Baso # (Auto) (0.0-0.2) X10*3/uL Abs Immat Gran (auto) (0.00-0.03) X10*3/uL Absolute Neuts (auto) (2.0-8.3) x10*3/uL Absolute Nucleated RBC (0.0-0.012) X10*3/uL Nucleated RBC % (auto) (0.0-0.2) /100WBC Sodium (135-145) mmol/L Potassium (3.3-5.1) mmol/L Chloride (96-108) mmol/L Carbon Dioxide (22-29) mmol/L Anion Gap (12-20) BUN (9-16) mg/dL Creatinine (0.5-1.4) mg/dL Estim Creat Clear Calc Estimated GFR Random Glucose (60-115) mg/dL Calcium (8.4-10.2) mg/dL Magnesium (1.6-2.6) mg/dL Total Bilirubin (0.0-1.0) mg/dL AST (5-31) U/L ALT (0-31) U/L Alkaline Phosphatase (39-117) U/L Total Protein (6.5-8.0) g/dL Albumin (3.5-5.0) g/dL Urine Color Urine Appearance Urine pH (5.0-9.0) Ur Specific [place] (1.005-1.025) Urine Protein (Neg-Trace) mg/dL Urine Glucose (UA) (Negative) mg/dL Urine Ketones (Negative) mg/dL Urine Blood (Negative) Urine Nitrite (Negative) Ur Leukocyte Esterase (Negative) Urine RBC (0-2) /HPF Urine WBC (0-5) /HPF Ur Squamous Epith Cells (0-2) /HPF Urine Bacteria (None Seen) Hyaline Casts (0-2) /LPF Salicylates (15-30) mg/dL Urine Opiates Screen Not Detected (Not Detect) Urine Fentanyl Screen Not Detected (Not Detect) Acetaminophen (<30) mcg/mL Ur Barbiturates Screen POSITIVE H (Not Detect) Ur Phencyclidine Scrn Not Detected (Not Detect) Ur Amphetamines Screen Not Detected (Not Detect) U Benzodiazepines Scrn Not Detected (Not Detect) Urine Cocaine Screen Not Detected (Not Detect) U Marijuana (THC) Screen Not Detected (Not Detect) Ethyl Alcohol mg/dL Discharge Plan Discharge Clinical Impression: Medication side effects Patient Disposition: Home, Self-Care Instructions: Adverse Drug Reaction (ED) Additional Instructions: Stop taking Seroquel, talk to your doctor to consider changing to something else. Prescriptions: No Action oxycodone 5 mg tablet 5 mg PO BID PRN (Reason: pain) Qty: 10 0RF Rx Instructions: Partial Fill upon patient request. acyclovir 5 % ointment 1 appl topical 6XD 7 Days Qty: 30 0RF gabapentin 300 mg capsule 300 mg PO TID Qty: 90 2RF divalproex 250 mg tablet extended release 24 hr 250 mg PO DAILY folic acid 1 mg tablet 1 mg PO DAILY Qty: 90 0RF rosuvastatin 40 mg tablet 40 mg PO 3XW clonazepam 0.5 mg tablet 0.5 mg PO BID PRN ramelteon 8 mg tablet 8 mg PO BEDTIME celecoxib 200 mg capsule 200 mg PO BID famotidine 20 mg tablet 20 mg PO DAILY Qty: 90 2RF omeprazole 40 mg capsule,delayed release(DR/EC) 40 mg PO BID Qty: 180 2RF
[2022-09-16 00:03] LABS: Acetaminophen LAB < 17 mcg/mL (<30); Alanine Aminotransferase 65 U/L (0-31); Albumin Level 3.8 g/dL (3.5-5.0); Alkaline Phosphatase 115 U/L (39-117); Anion Gap 16 (12-20); Aspartate Amino Transferase 98 U/L (5-31); Bilirubin Total 0.4 mg/dL (0.0-1.0); Blood Urea Nitrogen 14 mg/dL (9-16); Calcium 9.2 mg/dL (8.4-10.2); Carbon Dioxide 20 mmol/L (22-29); Chloride 109 mmol/L (96-108); Creatinine Clr Calc Pharmacy 60.6; Estimated Glomerular Filt Rate > 60; Ethanol < 10 mg/dL; Glucose Random 134 mg/dL (60-115); Potassium 3.6 mmol/L (3.3-5.1); Salicylate < 5.0 mg/dL (15-30); Sodium 141 mmol/L (135-145); Total Protein 6.1 g/dL (6.5-8.0)
[2022-09-16] MEDS: 0.9 % Sodium Chloride 1,000 ML 999 ML IV ×2 (00:13)
[2022-09-16 01:00] VITALS: BP 94/41; PULSE 78; RESP 16; TEMP 36.5; O2SAT 95
[2022-09-16 01:15] VITALS: BP 99/45
[2022-09-16 01:57] VITALS: BP 108/54; PULSE 84; RESP 18; O2SAT 94
[2022-09-16 02:00] LABS: Appearance Urine Cloudy; Color Urine Yellow; Glucose Urine UA Negative (Negative); Leukocyte Esterase Urine Trace (Negative); Nitrite Urine Negative (Negative); Specific Gravity - Urine <= 1.005 (1.005-1.025); UMIC TRIGGER UACC YES; Urine Blood Negative (Negative); Urine Ketones Negative (Negative); Urine Protein Negative (Neg-Trace)
[2022-09-16 02:05] LABS: Bacteria Urine None Seen (None Seen); Hyaline Casts Urine 0-2 /LPF (0-2); RBC Urine 0-2 /HPF (0-2); WBC Urine 0-5 /HPF (0-5)
[2022-09-16 02:45] LABS: Amphetamine Screen Urine Not Detected (Not Detect); Barbiturates, Urine POSITIVE (Not Detect); Benzodiazepines Screen Urine Not Detected (Not Detect); Cannabinoid Screen Urine Not Detected (Not Detect); Cocaine Screen Urine Not Detected (Not Detect); Fentanyl, urine Not Detected (Not Detect); Opiate Screen Urine Not Detected (Not Detect); Phencyclidine Screen Urine Not Detected (Not Detect)
[2022-09-16 03:20] VITALS: BP 118/65; PULSE 70; RESP 16; O2SAT 93
[2022-09-16 04:26] VITALS: BP 109/65; PULSE 78; RESP 21; O2SAT 94
[2022-09-16 07:54] VITALS: BP 113/48; PULSE 77; RESP 14; O2SAT 96
== END 2022-09-16 07:56 | disposition home or self-care (01) ==
PROVIDERS: Emergency Provider Emergency Medicine
DX: R53.83 Other fatigue (principal); I95.2 Hypotension due to drugs; T43.595A Adverse effect of other antipsychotics and neuroleptics, initial encounter; Y92.019 Unspecified place in single-family (private) house as the place of occurrence of the external cause; E78.5 Hyperlipidemia, unspecified; Z79.02 Long term (current) use of antithrombotics/antiplatelets; Z79.899 Other long term (current) drug therapy
CPT/HCPCS: 36415; 80053; 80143; 80179; 80307; 81001; 81003; 82077; 83735; 85025; 96360; 96361; 99284

== ENCOUNTER 2022-09-18 09:26 | Outpatient (REF) | payer MEDICARE, OTHER, SELFPAY ==
[2022-09-18 12:13] LABS: Alanine Aminotransferase 63 U/L (0-31); Albumin Level 4.4 g/dL (3.5-5.0); Alkaline Phosphatase 149 U/L (39-117); Aspartate Amino Transferase 87 U/L (5-31); Bilirubin Direct < 0.2 mg/dL (0.0-0.5); Bilirubin Total 0.7 mg/dL (0.0-1.0); Cholesterol 272 mg/dL; HDL Cholesterol 41 mg/dL; LDL Cholesterol Calculated 198 mg/dl; Total Protein 7.3 g/dL (6.5-8.0); Triglycerides 168 mg/dL
== END 2022-09-18 09:27 | disposition home or self-care (01) ==
LOC: HO.HMGCLDS 09:26
PROVIDERS: PCP Internal Medicine; Visit Provider Internal Medicine
DX: E78.2 Mixed hyperlipidemia (principal); R74.01 Elevation of levels of liver transaminase levels
CPT/HCPCS: 36415; 80061; 80076

== ENCOUNTER 2022-09-20 11:34 | Outpatient (AMB) | payer MEDICARE, OTHER, SELFPAY ==
--- NOTE | 2022-09-20 12:07 | A.OFFPC_ITS ---
Vital Signs 09/20/22 12:08 Height 5 ft Weight 177 lb 4 oz BMI 34.6 BP 140/88 H Blood Pressure Location Rt brachial Position Sitting Pulse 86 Pulse Source Pulse Oximeter Pulse Oximetry (%) 96 Oxygen Delivery Method Room Air Intake Visit Reasons: 3 months ffup lipids, liver enzymes after labs Intake Note: pt is here to follow upon her labs and pt would like her left ankle checked because he says it is painful but denies injury Allergies adhesive [ADHESIVE] Allergy (Intermediate, Verified 01/10/23 09:16) RASH diphenhydramine [From BENADRYL] Adverse Reaction (Unknown, Verified 01/10/23 09:16) MAKES HER EXCITED/HYPED UP NSAIDS (Non-Steroidal Anti-Inflamma Adverse Reaction (Unknown, Verified 01/10/23 09:16) Unknown promethazine [Phenergan] Adverse Reaction (Unknown, Verified 01/10/23 09:16) Fell asleep x16hrs and woke up not knowing where she was buspirone [From BuSpar] Adverse Reaction (Verified 01/10/23 09:16) restless fluoxetine [From Prozac] Adverse Reaction (Verified 01/10/23 09:16) can not stop moving Medication List - Last Reconciled 09/20/22 by Marlen Sunshine MD celecoxib 200 mg PO BID clonazepam 0.5 mg PO BID PRN divalproex ER 250 mg PO DAILY famotidine 20 mg PO DAILY folic acid 1 mg PO DAILY gabapentin 300 mg PO TID omeprazole 40 mg PO BID rosuvastatin 40 mg PO 3XW Tobacco use date assessed: 09/20/22 Fall risk assessment: No Falls in past year Last assessed Fall Risk: 09/20/22 HPI 3 months ffup lipids, liver enzymes after labs HPI Details 67-year-old lady here follow-up on her d yslipidemia, currently on rosuvastatin 40 mg taken 1 tablet 3 times a week, tolerating medication well. Been compliant with following a low-cholesterol diet, but does not engage in any meaningful exercise . Complains of feeling tired all the time and having intermittent episodes of palpitations , not accompanied by any shortness of breath or chest pain. She has also been complaining of throbbing pain in posterior aspect of left ankle, which has been bothering her now for the last several days. Denies any history of trauma, no strenuous exertion reported [facility] Medical History (Updated 03/26/23 @ 16:14 by Marlen Sunshine MD) Achilles tendinitis of left lower extremity Fatigue Pseudogout Elevated liver transaminase level Herpes zoster Arthritis of wrist Elevated TSH Impaired fasting glucose Personal history of covid-19 Tubular adenoma of colon GERD (gastroesophageal reflux disease) Mixed dyslipidemia Lumbar disc herniation Post laminectomy syndrome Migraine Seizure after head injury Restless leg syndrome Cataract Surgical History Hx of bilateral cataract extraction History of surgery on right wrist History of surgery on left wrist History of esophagogastroduodenoscopy (EGD) Hx of colonoscopy Hx of spinal fusion H/O: hysterectomy Family History Father Myocardial infarction, Onset Age: 53 COPD (chronic obstructive pulmonary disease) Diverticulitis Alcoholic Mother Depression HTN (hypertension) GERD (gastroesophageal reflux disease) FTT (failure to thrive) in adult Myocardial infarction Sister Alcoholic Lung cancer Daughter No problems noted. Daughter No problems noted. Brother Alcoholic Depression Bladder cancer Brother No problems noted. Brother Laryngeal cancer Liver cancer Social History Household Members: None Household Members Other:: spouse just last month from Covid and complication. Patient now alone Housing: House Do you presently have visiting nurse or other home services: No Alcohol intake: never Patient Tobacco Use Status: Never used Tobacco e-Cigarette/Vaping Use: Never Used service: No Current occupational status: retired Cognitive needs: No Hearing needs: No Vision needs: No Questionnaire PHQ-9 Over the last 2 weeks, how often have you been bothered by any of the following problems? 1. Little interest or pleasure in doing things: several days 2. Feeling down, depressed, or hopeless: not at all 3. Trouble falling or staying asleep, or sleeping too much: nearly every day 4. Feeling tired or having little energy: more than half the days 5. Poor appetite or overeating: several days 6. Feeling bad about yourself - or that you are a failure or have let yourself or your family down: not at all 7. Trouble concentrating on things, such as reading the newspaper or watching television: several days 8. Moving or speaking so slowly that other people could have noticed. Or the opposite - being so fidgety or restless that you have been moving around a lot more than usual: not at all 9. Thoughts that you would be better off or of hurting yourself in some way: not at all Total score: 8 Depression Screening Interpretation: Negative 36058 - PHQ-9 Billing: Yes Source: Developed by Drs. Ezequiel Bueno, Charu Lagos, Quentin Gallo and colleagues, with an educational deandra from [employer]. Thrive Questionnaire Date Thrive assessed: 09/20/22 I am a: Patient What is your living situation today?: I have a steady place to live Within the past 12 months, did the food you bought not last and you didn't have the money to get more?: Never true Within the past 12 months, did you worry whether your food would run out before you got money to buy more?: Never true Do you have trouble paying for medicines?: No Do you have trouble getting transportation to medical appointments?: No Do you have trouble paying your heating and electricity bill?: No Do you have trouble taking care of your child, family member or friend?: No Do you have trouble with day-to-day activities such as bathing, preparing meals, shopping, managing finances, etc.?: No Are you currently unemployed and looking for a job?: No Are you interested in more education?: No AUDIT C Alcohol Use Questionnaire (AUDIT-C) 1. How often do you have a drink containing alcohol?: 2-4 times a month 2. How many drinks containing alcohol do you have on a typical day when you are drinking?: 1 or 2 3. How often do you have six or more drinks on one occasion?: Never Total Score: 2 NEAL-7 AMB Questionnaire NEAL-7 Date NEAL - 7 assessed: 09/20/22 Feeling nervous, anxious, or on edge: 1 = Several days Not being able to stop or control worryin = More than half the days Worrying too much about different things: 2 = More than half the days Trouble relaxin = More than half the days Being so restless that it is hard to sit still: 2 = More than half the days Becoming easily annoyed or irritable: 1 = Several days Feeling afraid as if something awful might happen: 0 = Not at all Total NEAL-7 score (0-4 normal; 5-9 mild; 10-14 moderate; 15-21 severe): 10 Source: Developed by Drs. Ezequiel Bueno, Charu Lagos, Quentin Gallo and colleagues, with an educational deandra from [employer]. Review of Systems Const Reports as per HPI, Reports difficulty sleeping, Denies fever(s), Reports headache(s) (Occasional) and Reports lethargy Eyes Reports no additional complaints ENT Denies dysphagia, Denies dizziness, Reports headache(s) (Occasional), Denies nasal congestion, Denies neck pain and Denies post nasal drip Card Reports as per HPI and Reports no additional complaints Resp Reports no additional complaints GI Denies belching, Denies melena, Denies bloating, Denies change in bowel habits, Denies dysphagia, Denies excessive flatus, Denies dyspepsia, Denies heartburn, Denies diarrhea, Denies loose stools, Denies nausea and Denies vomiting Reports no additional complaints Musc Reports no additional complaints and Denies neck pain Skin/Breast Denies lesions and Denies rash Neuro Reports no additional complaints, Denies dizziness and Reports headache(s) (Occasional) Psych Reports no additional complaints Endo Reports no additional complaints Jamal/Lymph Denies easy bleeding and Denies easy bruising Aller/Immun Reports no additional complaints Physical exam (Primary Care) Vital Signs: Last Vital Signs Pulse 86 09/20/22 12:08 BP 140/88 H 09/20/22 12:08 Pulse Ox 96 09/20/22 12:08 Oxygen Delivery Method Room Air 09/20/22 12:08 BMI result Body Mass Index 34.6 BMI Assessment/Plan discussion: High BMI High, discussed plan: weight reduction, dietary, physical activity and alcohol moderation Tobacco/Smoking Status: Tobacco use Status Tobacco use date assessed 09/20/22 09/20/22 12:15 Patient Tobacco Use Status Never used Tobacco 09/20/22 12:15 e-Cigarette/Vaping Use Never Used 09/20/22 12:15 PHQ-9: PHQ-9 Score PHQ-9: Total score 11 09/20/22 12:55 Depression Screening Interpretation: Negative Thrive Assessment: Date of Thrive Assessment Date Thrive assessed 09/20/22 09/20/22 12:19 Const Other: Alert oriented x3, no acute cardiorespiratory distress noted, ambulatory with normal gait Orientation/consciousness: patient oriented x3 HENMT Mouth: Normal oral and palatal mucosa present and moist mucous membranes Neck Neck: Yes full ROM, Yes no lymphadenopathy and Yes supple Resp Effort & Inspection: normal respiratory effort Auscultation: clear to auscultation bilaterally Cardio Other: S1-S2 present regular rate and rhythm GI Other: Normal bowel sounds, soft, nontender, no mass palpated General: Yes no CVA tenderness Back/Spine/Pelvis Back: no CVA tenderness and No back tenderness Skin General skin exam: no rashes or lesions noted Neuro General: patient oriented x3, gait normal, tone normal, moves all extremities, no focal motor deficits and CN's II-XI intact bilaterally Extrem Other: Slight tenderness on palpation over left Achilles tendon General: Yes no joint enlargement, Yes no pedal edema and Yes normal gait Psych Appearance: grossly normal and well kempt Mental Status: mental status grossly normal Speech and movement: Normal speech and movement present Affect: normal affect Attitude: cooperative Thought process: Normal thought process present Results Reviewed Results Reviewed: ENTERED: 09/15/220054 VIDAL DR: Generic ED Physician ORDERED: CBC Auto Diff Test Result Flag Reference Site WBC 4.7 L 4.8-10.8 X10*3/uL RBC 4.49 4.20-5.50 X 10*6/uL HGB 13.6 12.0-16.0 g/dl HCT 42.5 37.0-47.0 % MCV 94.7 80.0-98.0 fL MCH 30.3 27.0-33.0 pg MCHC 32.0 31.0-35.0 g/dl RDW 13.9 11.0-16.0 % PLT 227 160-400 X10*3/uL ENTERED: 09/18/224029 VIDAL DR: ORDERED: Liver Panel, Lipid Panel Test Result Flag Reference Site Total Bili 0.7 0.0-1.0 mg/dL Direct Bili < 0.2 0.0-0.5 mg/dL Slight Hemolysis AST (GOT) 87 H 5-31 U/L Slight Hemolysis ALT (GPT) 63 H 0-31 U/L Protein, Total 7.3 6.5-8.0 g/dL Alb 4.4 3.5-5.0 g/dL Triglyceride 168 mg/dL Desirable Triglyceride: less than 150 mg/dL Borderline High Triglyceride 150-199 mg/dL High Triglyceride: 200-499 mg/dL Very High Triglyceride: greater than or equal to 5OO mg/dL Chol 272 mg/dL Desirable Cholesterol: less than 200 mg/dL Borderline High Cholesterol: 200-239 mg/dL High Cholesterol: greater than 239 mg/dL LDL Calculated 198 mg/dl Desirable LDL: less than 100 mg/dL Near Optimal/Above Optimal LDL: 110-129 mg/dL Borderline High LDL: 130-159 mg/dL High LDL: 160-189 mg/dL Very High LDL: greater than or equal to 190 mg/dL HDL 41 mg/dL Desirable HDL: greater than 40 mg/dL Note: This HDL assay may give artificially low results in patients with liver disease. Alk Phos 149 H 39-117 U/L Assessment and Plan Assessment & Plan (1) Palpitations: Code(s): R00.2 - Palpitations Plan: Recent labs reviewed, showed normal hemoglobin hematocrit, no evidence of infection , normal electrolytes renal function fasting glucose. Ordered TSH and free T4, as well as thyroid peroxidase antibodies, and total CK level (2) Fatigue: Code(s): R53.83 - Other fatigue Plan: No anemia noted on recent lab work electrolytes are within normal limits. Ordered a TSH, thyroid peroxidase antibody, total CK and free T4 levels with results still pending (3) Mixed dyslipidemia: Code(s): E78.2 - Mixed hyperlipidemia Plan: Reviewed recent fasting lipid levels with patient which showed elevated LDL cholesterol as compared to last check. Patient states that she sometimes would forget taking her rosuvastatin dose, stressed importance of taking medication as directed, as well as to combined this with adhering to recommended diet and getting to do any exercise as tolerated. Will repeat another fasting lipid panel in 3 months. (4) Achilles tendinitis of left lower extremity: Code(s): M76.62 - Achilles tendinitis, left leg Plan: Advised to massaged area diclofenac gel as directed, this is available [id number]. Call if no improvement noted after 2-3 days. (5) Impaired fasting glucose: Code(s): R73.01 - Impaired fasting glucose Plan: Has history of elevated fasting glucose in the past, but recent fasting glucose is within normal limits. Impaired glucose metabolism O2 at risk for developing diabetes mellitus type 2, as well as heart attack and stroke later on. Lifestyle changes at just weight loss, healthy eating habits, and regular exercise are important, and can prevent the progression to diabetes (6) Immunity status testing: Code(s): Z01.84 - Encounter for antibody response examination Plan: Patient requesting to see if she still has immunity against varicella, titer ordered to check varicella antibody Orders: Orders Thyroid Peroxidase Antibodies 09/20/22 R00.2 - Palpitations, R53.83 - Other fatigue Creatine Kinase Total 3 Months R73.01 - Impaired fasting glucose, E78.2 - Mixed hyperlipidemia Glucose Fasting 3 Months R73.01 - Impaired fasting glucose, E78.2 - Mixed hyperlipidemia Thyroid Stimulating Hormone 04 R00.2 - Palpitations, R53.83 - Other fatigue Free T4 (Free Thyroxine) 09/20/22 E03.9 - Hypothyroidism, unspecified, R00.2 - Palpitations, R53.83 - Other fatigue Varicella IgG Antibody 09/20/22 Z01.84 - Encounter for antibody response examination Hemoglobin A1c 3 Months R73.01 - Impaired fasting glucose, E78.2 - Mixed hyperlipidemia Lipid Panel 3 Months R73.01 - Impaired fasting glucose, E78.2 - Mixed hyperlipidemia Alanine Aminotransferase 3 Months R73.01 - Impaired fasting glucose, E78.2 - Mixed hyperlipidemia Aspartate Amino Transferase 3 Months R73.01 - Impaired fasting glucose, E78.2 - Mixed hyperlipidemia Coding Level of Care Code Est Pt Level 4 (97823) Diagnoses Palpitations R00.2 Fatigue R53.83 Mixed dyslipidemia E78.2 Achilles tendinitis of left lower extremity M76.62 Impaired fasting glucose R73.01 Immunity status testing Z84
[2022-09-20 12:08] VITALS: BP 140/88; PULSE 86; O2SAT 96; BMI 34.6
== END 2022-09-20 12:56 | disposition home or self-care (01) ==
LOC: HO.HMGC 11:34
PROVIDERS: PCP Internal Medicine; Visit Provider Internal Medicine
DX: R00.2 Palpitations (principal); R53.83 Other fatigue; E78.2 Mixed hyperlipidemia; M76.62 Achilles tendinitis, left leg; R73.01 Impaired fasting glucose; Z01.84 Encounter for antibody response examination
CPT/HCPCS: 99214

== ENCOUNTER 2022-09-20 12:58 | Outpatient (REF) | payer MEDICARE, OTHER, SELFPAY ==
[2022-09-20 15:42] LABS: Free T4 (Free Thyroxine) 0.86 ng/dL (0.71-1.85); Thyroid Stimulating Hormone 2.53 uIU/mL (0.32-4.0)
[2022-09-22 13:13] LABS: Thyroid Peroxidase Antibodies 25 IU/mL (<9)
== END 2022-09-20 12:59 | disposition home or self-care (01) ==
LOC: HO.HMGCLDS 12:58
PROVIDERS: PCP Internal Medicine; Visit Provider Internal Medicine
DX: Z01.84 Encounter for antibody response examination (principal); R53.83 Other fatigue; E03.9 Hypothyroidism, unspecified; R00.2 Palpitations
CPT/HCPCS: 36415; 84439; 84443; 86376; 86787

== ENCOUNTER 2022-10-27 13:54 | Outpatient (REF) | payer MEDICARE, OTHER, SELFPAY ==
--- NOTE | ~2022-10-27 | XR_ITS ---
EXAMINATION: XR CHEST CLINICAL INFORMATION: Shortness of breath COMPARISON: Chest x-ray 11/21/2021 TECHNIQUE: 2 views of the chest were obtained. FINDINGS: No significant abnormality is noted involving the heart, lungs, mediastinum, bony thorax or soft tissues. XR/XR chest 2V IMPRESSION: Unremarkable examination.
[2022-10-27 18:10] LABS: Influenza A PCR NEGATIVE (Negative); Influenza B PCR NEGATIVE (Negative); Resp Syncy Virus RNA Qual PCR NEGATIVE (Negative); SARS COV2 PCR INHOUSE NEGATIVE (Negative)
== END 2022-10-27 13:55 | disposition home or self-care (01) ==
LOC: HO.LAB 13:54
PROVIDERS: Visit Provider Nurse Practitioner Acute Care
DX: Z20.822 Contact with and (suspected) exposure to COVID-19 (principal); R05.9 Cough, unspecified; R06.02 Shortness of breath; R53.83 Other fatigue
CPT/HCPCS: 0241U; 71046

== ENCOUNTER 2022-10-27 14:02 | Outpatient (REF) | payer MEDICARE, OTHER, SELFPAY | END 2022-10-27 14:03 | disposition home or self-care (01) | LOC: HO.HMGCX 14:02 | PROVIDERS: PCP Internal Medicine; Visit Provider Nurse Practitioner Acute Care | DX: Z13.89 Encounter for screening for other disorder (principal) ==

== ENCOUNTER 2023-01-10 08:33 | Outpatient (AMB) | payer MEDICARE, OTHER, SELFPAY ==
--- NOTE | 2023-01-10 08:39 | AM.OFFVISMDC ---
Intake Vital Signs 01/10/23 08:40 Height 5 ft Weight 179 lb BMI 35.0 BP 134/70 Blood Pressure Location Lt brachial Position Sitting Pulse 72 Pulse Source Pulse Oximeter Pulse Oximetry (%) 95 Oxygen Delivery Method Room Air Intake Visit Reasons: AWV G0438 Intake Note: Pt is here today for her AWV Allergies adhesive [ADHESIVE] Allergy (Intermediate, Verified 01/10/23 09:16) RASH diphenhydramine [From BENADRYL] Adverse Reaction (Unknown, Verified 01/10/23 09:16) MAKES HER EXCITED/HYPED UP NSAIDS (Non-Steroidal Anti-Inflamma Adverse Reaction (Unknown, Verified 01/10/23 09:16) Unknown promethazine [Phenergan] Adverse Reaction (Unknown, Verified 01/10/23 09:16) Fell asleep x16hrs and woke up not knowing where she was buspirone [From BuSpar] Adverse Reaction (Verified 01/10/23 09:16) restless fluoxetine [From Prozac] Adverse Reaction (Verified 01/10/23 09:16) can not stop moving Medication List - Last Reconciled 01/10/23 by Marlen Sunshine MD baclofen 5 mg PO BEDTIME wldcmkcrnv-peikkvn-xlrpceda 50-325-40 mg 1 cap PO Q6H PRN celecoxib 200 mg PO BID clonazepam 0.5 mg PO BID PRN clonidine HCl 0.1 mg PO BEDTIME famotidine 20 mg PO DAILY folic acid 1 mg PO DAILY gabapentin 300 mg PO TID galcanezumab-gnlm (Emgality) mg subcut multivitamin 1 tab PO DAILY omeprazole 40 mg PO BID rosuvastatin 40 mg PO 3XW 90 days HPI AWV G0438 HPI Details AWV ? 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 She had her last mammogram 09/09/2022 with benign findings, last Pap smear was done in 2003, she had her screening colonoscopy done 03/02/2022 with removal of 3 tubular adenoma in cecum. She had her last bone density scan was done in 2019 which showed normal bone density in her lumbar spine and beginning osteopenia in her left femoral neck and left femur. She had her last lipid panel done 09/18/2022, due for repeat this month, with labs already ordered and her last hemoglobin A1c 06/26/2022 was at 5.8. She is up-to-date with all her COVID vaccinations, and gets yearly flu shot, had the Pneumovax 23 vaccination 2012, Prevnar 20 given today., has a tetanus diphtheria booster in 2012, but has not yet had her shingles vaccine, which she is planning to get later this month. ? Medical / Social History Reviewed? Past Medical History ?Yes . ? [place] of Care / Care Team list updated ?Yes . ? Surgical/Hospitalization History ?Yes . ? Current Medications (including OTC and supplements) ?Yes . ? Family History ?Yes . ? Tobacco Control form ?Yes . ? AUDIT-C (Alcohol use) form ?Yes . ? Illicit drug use in Social History ?Yes . ? Current diagnosis of depression? ?No ? Appropriate PHQ2/PHQ9 completed ?Yes . ? Data entered by ?Senior Operator and reviewed by provider ? Fall Risk ? Fall History? Have you had any falls with injury in the past year? ?yes, in 10/2022 . ? Have you had two or more falls in the past year? ?No . ? Fall Risk Assessment: ?1 fall in the past year . ? HRA filled out by the patient, reviewed by Provider and scanned. ?AWV ? Balance? Romberg ?Yes . ? Tandem walk ?unable . ? Walk and Turn ?Yes . ? Rise from sit to stand ?Yes . ?Vision? Corrective lens ?Yes ? Vision screen ? Up-to-date, [facility] for [facility] vision screening and glaucoma screening ?Hearing? Whisper test ?pass . ?Written Plan?Completed. See Patient Documents.? [facility] Medical History (Updated 03/26/23 @ 16:14 by Marlen Sunshine MD) Achilles tendinitis of left lower extremity Fatigue Pseudogout Elevated liver transaminase level Herpes zoster Arthritis of wrist Elevated TSH Impaired fasting glucose Personal history of covid-19 Tubular adenoma of colon GERD (gastroesophageal reflux disease) Mixed dyslipidemia Lumbar disc herniation Post laminectomy syndrome Migraine Seizure after head injury Restless leg syndrome Cataract Surgical History Hx of bilateral cataract extraction History of surgery on right wrist History of surgery on left wrist History of esophagogastroduodenoscopy (EGD) Hx of colonoscopy Hx of spinal fusion H/O: hysterectomy Family History Father Myocardial infarction, Onset Age: 53 COPD (chronic obstructive pulmonary disease) Diverticulitis Alcoholic Mother Depression HTN (hypertension) GERD (gastroesophageal reflux disease) FTT (failure to thrive) in adult Myocardial infarction Sister Alcoholic Lung cancer Daughter No problems noted. Daughter No problems noted. Brother Alcoholic Depression Bladder cancer Brother No problems noted. Brother Laryngeal cancer Liver cancer Social History Household Members: None Household Members Other:: spouse just last month from Covid and complication. Patient now alone Housing: House Do you presently have visiting nurse or other home services: No Alcohol intake: never Patient Tobacco Use Status: Never used Tobacco e-Cigarette/Vaping Use: Never Used service: No Current occupational status: retired Cognitive needs: No Hearing needs: No Vision needs: No Female Reproductive History Menstrual Menopause type: surgical Date of Mammogram: 09/09/22 Date of last Bone Density Screenin08/07/19 Questionnaire Medicare Wellness Checkup What [age] What gender do you identify with?: female During the past 4 weeks, how much have you been bothered by emotional problems such as feeling anxious, depressed, irritable, sad or downhearted, and blue?: quite a bit During the past 4 weeks, has your physical & emotional health limited your social activities with family, friends, neighbors, or groups?: slightly During the past 4 weeks, how much bodily pain have you generally had?: moderate pain During the past 4 weeks, was someone available to help you if you needed & wanted help?: yes, as much as I wanted During the past 4 weeks, what was the hardest physical activity you could do for at least 2 minutes?: moderate Can you get to places out of walking distance without help? (For eg., can you travel alone on buses, taxis or drive your car?): Yes Can you go shopping for groceries or clothes without someone's help?: Yes Can you prepare your own meals?: Yes Can you do your housework without help?: Yes Because of any health problems, do you need the help of another person with your personal care needs such as eating, bathing, dressing or getting around the house?: No Can you handle your own money without help?: Yes During the past 4 weeks, how would you rate your health in general?: fair During the past 4 weeks how have things been going for you?: good & bad parts about equal Are you having difficulties driving your car?: no Do you always fasten your seat belt when you are in a car?: yes, usually During past 4 weeks, have you been bothered by the following: never: Sexual problems? and Problems using the telephone? and sometimes: Falling or dizzy when standing up, Trouble eating well?, Teeth or denture problems? and Tiredness or fatigue? Have you fallen 2 or more times in the past year?: No Are you afraid of falling?: No Are you a smoker?: no During the past 4 weeks, how many drinks of wine, beer, or other alcoholic beverages did you have?: 1 drink or less per week Do you exercise for about 20 minutes 3 or more times a week?: no, I usually do not exercise this much Have you been given information to help with the following?: no: Hazards in your house that might hurt you? and no: Keeping track of your medications? How often do you have trouble taking medicines the way you have been told to take them?: I always take medicine as prescribed How confident are you that you can control & manage most of your health problems?: very confident What is your race?: White Mini Mental State Exam (MMSE) Orientation What is the (year) (season) (date) (day) (month)?: year (2022), season (Summer), date (01/10/2023), day (Sunday) and month (December) Where are we (state) (county) (town or city) (hospital) (floor)?: state ([place]), [facility] ([facility]), town or city ([place]) and hospital/clinic ([facility]) Score Score: 9 Activity of Daily Living Bathing - sponge bath, tub bath or shower: receives no assistance (gets in/out by self, if usual bathing means Dressing - getting clothes from closets & drawers, including inner/outer garments & fasteners.: gets clothes & gets completely dressed without help Toileting - going to the 'toilet room' for urine/bowel elimination & cleaning self/arranging clothes: goes to toilet room, cleans self, arranges clothes without help Transfer: moves in & out of bed and chair without help (may use support object) Continence: controls urination/bowel movements completely by self Feeding: feeds self without help Total Score: 0 Information obtained from: patient Using telephone: independent Traveling: independent Shopping: independent Preparing meals: independent Housework: independent Taking medicine: independent Managing money: independent PHQ-9 Over the last 2 weeks, how often have you been bothered by any of the following problems? 1. Little interest or pleasure in doing things: several days 2. Feeling down, depressed, or hopeless: more than half the days 3. Trouble falling or staying asleep, or sleeping too much: nearly every day 4. Feeling tired or having little energy: more than half the days 5. Poor appetite or overeating: several days 6. Feeling bad about yourself - or that you are a failure or have let yourself or your family down: not at all 7. Trouble concentrating on things, such as reading the newspaper or watching television: several days 8. Moving or speaking so slowly that other people could have noticed. Or the opposite - being so fidgety or restless that you have been moving around a lot more than usual: not at all 9. Thoughts that you would be better off or of hurting yourself in some way: not at all Total score: 10 Depression Screening Interpretation: Positive (Currently sees Dr. Eran Frankel, on Effexor and Klonopin) Depression Screening Follow-up: Existing condition, In treatment and Community Mental Health Worker F/U 39539 - PHQ-9 Billing: Yes Source: Developed by Drs. Ezequiel Bueno, Charu Lagos, Quentin Gallo and colleagues, with an educational deandra from [employer]. Physical Exam Vital Signs: Last Vital Signs Pulse 72 01/10/23 08:40 BP 134/70 01/10/23 08:40 Pulse Ox 95 01/10/23 08:40 Oxygen Delivery Method Room Air 01/10/23 08:40 BMI result Body Mass Index 35.0 Immunizations pneumoc 20-jt conj-dip cr(PF) 0.5 mL IM syringe Performing Provider: Marlen Sunshine MD Performing Location: [facility] [place] [facility] Administered by: Brittany Chapa CMA on 01/10/23 09:53 Dose Route Admin Location Dispensed Lot Number Expiration Date NDC [employer] 0.5 mL IM Left Deltoid 0.5 mL [id number] 03/17/24 1428-2811-09 [employer] VIS Given Date VIS Provided VIS Publication Date 01/10/23 Single Vaccine 21 Eligibility Eligibility Date Funding Source Not [facility] Eligible 01/10/23 Private Assessment & Plan Assessment & Plan (1) Initial Medicare annual wellness visit: Code(s): Z00.00 - Encounter for general adult medical examination without abnormal findings Plan: Medical wellness checklist, reviewed, discussed with patient and updated. Copy given. She had her last mammogram 09/09/2022 with benign findings, last Pap smear was done in 2003, she had her screening colonoscopy done 03/02/2022 with removal of 3 tubular adenoma in cecum. She had her last bone density scan was done in 2019 which showed normal bone density in her lumbar spine and beginning osteopenia in her left femoral neck and left femur. She had her last lipid panel done 09/18/2022, due for repeat this month, with labs already ordered and her last hemoglobin A1c 06/26/2022 was at 5.8. She is up-to-date with all her COVID vaccinations, and gets yearly flu shot, had the Pneumovax 23 vaccination 2012, Prevnar 20 given today., has a tetanus diphtheria booster in 2012, but has not yet had her shingles vaccine, which she is planning to get later this month (2) Mixed dyslipidemia: Code(s): E78.2 - Mixed hyperlipidemia Plan: Currently on rosuvastatin 40 mg taken 3 times a week (3) Post laminectomy syndrome: Code(s): M96.1 - Postlaminectomy syndrome, not elsewhere classified Plan: Followed by Rheumatology (4) Restless leg syndrome: Code(s): G25.81 - Restless legs syndrome (5) Migraine: Code(s): G43.909 - Migraine, unspecified, not intractable, without status migrainosus Qualifiers: Migraine type: unspecified Status migrainosus presence: without status migrainosus Intractability: not intractable Qualified Code(s): G43.909 - Migraine, unspecified, not intractable, without status migrainosus Plan: Currently on Emgality and takes fioricet as needed (6) Lumbar disc herniation: Code(s): M51.26 - Other intervertebral disc displacement, lumbar region (7) Tubular adenoma of colon: Code(s): D12.6 - Benign neoplasm of colon, unspecified Plan: Up-to-date with her screening colonoscopy, followed by Dr. Borjas (8) GERD (gastroesophageal reflux disease): Code(s): K21.9 - Gastro-esophageal reflux disease without esophagitis Qualifiers: Esophagitis presence: esophagitis presence not specified Qualified Code(s): K21.9 - Gastro-esophageal reflux disease without esophagitis Plan: Currently on omeprazole 40 mg twice a day (9) Arthritis of wrist: Comment: Currently sees Dr. Beltrán Code(s): M19.039 - Primary osteoarthritis, unspecified wrist Plan: Sees followed by Rheumatology (10) Anxiety as acute reaction to exceptional stress: Code(s): F41.1 - Generalized anxiety disorder; F43.0 - Acute stress reaction Plan: Followed by Dr. Eran Frankel currently takes clonazepam as needed (11) Pseudogout: Comment: Followed at [facility], currently on methotrexate and Celebrex Code(s): M11.20 - Other chondrocalcinosis, unspecified site (12) Impaired fasting glucose: Code(s): R73.01 - Impaired fasting glucose (13) Advanced directives, counseling/discussion: Code(s): Z71.89 - Other specified counseling Plan: Initiated the conversation about Advanced Directives. Advanced Directives help patients prepare for current and future decisions about their medical treatment and place of care. Discussed with patient that it is a process where a patients current condition and prognosis are reviewed, their wishes for information regarding their illness are elicited, and likely medical dilemmas are presented and options discussed. These forms can be amended as needed, reviewed yearly and make changes as needed Orders: Orders Pneumococcal 20 Immunization / Z23 - Encounter for immunization Quality Reporting (2019) Depression/Bipolar (159/160/161/177) PHQ-9: Total score: 10 Coding Level of Care Code Medicare First (G0438) Diagnoses Initial Medicare annual wellness visit Z00.00 Mixed dyslipidemia E78.2 Post laminectomy syndrome M96.1 Restless leg syndrome G25.81 Migraine without status migrainosus, not intractable, unspecified migraine type G43.909 Migraine type: unspecified Status migrainosus presence: without status migrainosus Intractability: not intractable Lumbar disc herniation M51.26 Tubular adenoma of colon D12.6 Gastroesophageal reflux disease, unspecified whether esophagitis present K21.9 Esophagitis presence: esophagitis presence not specified Arthritis of wrist M19.039 Anxiety as acute reaction to exceptional stress F41.1; F43.0 Pseudogout M11.20 Impaired fasting glucose R73.01 Advanced directives, counseling/discussion Z71.89 CPT Codes Advance Care Planning - Time spent: 16-45 minutes ([id number]) Advance Care Planning Advance Care Planning discussion: Completed/Scanned Date of discussion: 01/10/23 Who was present: Patient Forms completed: Health Care Proxy Time spent: 16-45 minutes Actual minutes spent: 16
[2023-01-10 08:40] VITALS: BP 134/70; PULSE 72; O2SAT 95; BMI 35.0
== END 2023-01-10 10:28 | disposition home or self-care (01) ==
PROVIDERS: Visit Provider Internal Medicine
DX: Z71.89 Other specified counseling (principal)
CPT/HCPCS: 90471; 90677; 99497; G0438; G0439

== ENCOUNTER 2023-01-13 10:25 | Outpatient (REF) | payer MEDICARE, OTHER, SELFPAY ==
[2023-01-13 13:48] LABS: Estimated Average Glucose 111 mg/dL; Hemoglobin A1c % 5.5 %
[2023-01-13 13:55] LABS: Alanine Aminotransferase 49 U/L (0-31); Aspartate Amino Transferase 70 U/L (5-31); Cholesterol 177 mg/dL; Glucose Fasting 93 mg/dL (60-99); HDL Cholesterol 54 mg/dL; LDL Cholesterol Calculated 105 mg/dl; Triglycerides 94 mg/dL
== END 2023-01-13 10:26 | disposition home or self-care (01) ==
LOC: HO.HMGCLDS 10:25
PROVIDERS: PCP Internal Medicine; Visit Provider Internal Medicine
DX: E78.2 Mixed hyperlipidemia (principal); R73.01 Impaired fasting glucose
CPT/HCPCS: 36415; 80061; 82550; 82947; 83036; 84450; 84460

== ENCOUNTER 2023-02-06 08:59 | Outpatient (AMB) | payer MEDICARE, OTHER, SELFPAY ==
--- NOTE | 2023-02-06 09:13 | MHC.OFFVIS ---
Intake Vital Signs 02/06/23 09:15 Height 5 ft Weight 174 lb 2.643 oz BMI 34.0 BP 142/83 H Blood Pressure Location Lt brachial Position Sitting Pulse 90 Intake Visit Reasons: 6 month follow up Intake Note: Anni presents in office as a est.patient for a 6month f/u for Elevated liver transaminase level/ GERD pt got bloodwork done with PCP in [place] PT CC: pt reports having bloating , constipation , GERD pt denies any other GI Issues Roving Weight Gauger Required: No Accompanied by: Self / Same As Patient Allergies adhesive [ADHESIVE] Allergy (Intermediate, Verified 01/10/23 09:16) RASH diphenhydramine [From BENADRYL] Adverse Reaction (Unknown, Verified 01/10/23 09:16) MAKES HER EXCITED/HYPED UP NSAIDS (Non-Steroidal Anti-Inflamma Adverse Reaction (Unknown, Verified 01/10/23 09:16) Unknown promethazine [Phenergan] Adverse Reaction (Unknown, Verified 01/10/23 09:16) Fell asleep x16hrs and woke up not knowing where she was buspirone [From BuSpar] Adverse Reaction (Verified 01/10/23 09:16) restless fluoxetine [From Prozac] Adverse Reaction (Verified 01/10/23 09:16) can not stop moving HPI 6 month follow up HPI Details LAST VISIT Elevated liver transaminase level Discussed with patient all her lab work. Negative for any out immune disorders. Most likely the reason for the elevation of her liver enzymes is related to hepatic steatosis. Discussed with patient the importance of losing weight, exercise. Eating food that is low in fat and calorie, eating more protein GERD (gastroesophageal reflux disease) Will change patient back to omeprazole. States that she was feeling better when she was taking omeprazole. Discussed with patient avoiding dietary triggers she can take omeprazole in the morning and if needed famotidine at bedtime. Discussed with patient the importance of staying upright for minimal 3 hours after meals. The importance of weight loss was discussed with patient. I will see her in 6 months, sooner on as needed basis. Patient is agreeable to this plan and verbalizes understanding of instructions. She was given the opportunity to ask questions and all questions answered. ? Thank you for allowing me to participate in her care Plan Medications New famotidine 20 mg PO DAILY 90 tabs 2RF omeprazole 40 mg PO BID 180 caps 2RF K21.9 Discontinued pantoprazole Discontinued Reason: Doctor's Order 40 mg PO BID 180 tabs 4RF K21.9 TODAY'S VISIT Patient is here today for follow-up and to discuss lab results. Patient has improvement in her liver enzymes. Patient has not lost any weight. Reports that she is moving her bowels without any issues. Reports occasional postprandial abdominal bloating. Patient no longer has acid reflux or dyspepsia. Patient denies dysphagia or odynophagia. Patient is taking omeprazole twice a day and famotidine at bedtime. Patient denies any nausea or vomiting. Denies any abdominal pain or discomfort. Patient states that she has not changed much of her diet. Losing weight and following a low-fat low-calorie diet encouraged. [facility] Medical History Achilles tendinitis of left lower extremity Arthritis of wrist Cataract Elevated liver transaminase level Elevated TSH Fatigue GERD (gastroesophageal reflux disease) Herpes zoster Impaired fasting glucose Lumbar disc herniation Migraine Mixed dyslipidemia Personal history of covid-19 Post laminectomy syndrome Pseudogout Restless leg syndrome Seizure after head injury Tubular adenoma of colon Surgical History H/O: hysterectomy History of esophagogastroduodenoscopy (EGD) History of surgery on left wrist History of surgery on right wrist Hx of bilateral cataract extraction Hx of colonoscopy Hx of spinal fusion Family History Father Myocardial infarction, Onset Age: 53 COPD (chronic obstructive pulmonary disease) Diverticulitis Alcoholic Mother Depression HTN (hypertension) GERD (gastroesophageal reflux disease) FTT (failure to thrive) in adult Myocardial infarction Sister Alcoholic Lung cancer Daughter No problems noted. Daughter No problems noted. Brother Alcoholic Depression Bladder cancer Brother No problems noted. Brother Laryngeal cancer Liver cancer Social History Household Members: None Household Members Other:: spouse just last month from Covid and complication. Patient now alone Housing: House Do you presently have visiting nurse or other home services: No Alcohol intake: never Patient Tobacco Use Status: Never used Tobacco e-Cigarette/Vaping Use: Never Used service: No Current occupational status: retired Cognitive needs: No Hearing needs: No Vision needs: No Review of Systems Const Denies weight gain and Denies weight loss ENT Reports no additional complaints, Denies dysphagia and Denies odynophagia Card Reports no additional complaints Resp Reports no additional complaints GI Denies abdominal pain, Denies belching, Denies melena, Reports bloating (after meal), Denies change in bowel habits, Denies dysphagia, Denies excessive flatus, Denies dyspepsia, Denies heartburn, Denies diarrhea, Denies loose stools, Denies nausea, Denies odynophagia and Denies vomiting Reports no additional complaints Musc Reports no additional complaints Neuro Reports no additional complaints Psych Reports no additional complaints Endo Reports no additional complaints Physical Exam Vital Signs: Last Vital Signs Pulse 90 02/06/23 09:15 BP 142/83 H 02/06/23 09:15 BMI result Body Mass Index 34.0 Const General: healthy appearing, no acute distress and well developed Nutritional Appearance: obese Orientation/consciousness: patient oriented x3 HEENT Head: Yes normal to inspection, Yes normocephalic and Yes atraumatic Face and sinus: Yes normal facial exam Mouth: Normal oral and palatal mucosa present Throat: Yes posterior oropharynx normal, Yes tonsils normal and Yes uvula midline Eyes General: appearance normal, both eyes and all related structures Neck Neck: Yes normal visual inspection, Yes full ROM and Yes trachea midline Thyroid: Thyroid normal Resp Effort & Inspection: normal respiratory effort, able to speak in complete sentences, no tracheal deviation and symmetric chest movement Auscultation: clear to auscultation bilaterally Cardio Rate: regular rate Heart sounds: S1 normal heart sound present and S2 normal heart sound present GI Inspection: Yes normal to inspection, No distended and Yes obesity Palpation (GI): Soft to palpation, not firm, nontender and No hepatosplenomegaly present Auscultation: normal bowel sounds General: Yes no CVA tenderness Back/Spine/Pelvis Back: no CVA tenderness Skin General skin exam: elasticity normal, turgor normal and dry skin Neuro General: patient oriented x3 Psych Appearance: grossly normal Mental Status: mental status grossly normal Speech and movement: Normal speech and movement present Affect: normal affect Results Reviewed Results Reviewed: Laboratory Tests 09/18/22 01/13/23 09:38 11:01 AST 87 H 70 H ALT 63 H 49 H Assessment & Plan Assessment & Plan (1) Elevated liver transaminase level: Code(s): R74.01 - Elevation of levels of liver transaminase levels Plan: Patient continues to have elevated liver enzymes. Patient states that she does not drink alcohol. Patient was encouraged to lose weight . Will send patient for abd. US with elastography (2) GERD (gastroesophageal reflux disease): Code(s): K21.9 - Gastro-esophageal reflux disease without esophagitis Qualifiers: Esophagitis presence: esophagitis presence not specified Qualified Code(s): K21.9 - Gastro-esophageal reflux disease without esophagitis Plan: Continue current treatment with omeprazole twice a day and famotidine at night time as needed. Patient was encouraged to avoid dietary triggers in late night snacking. Staying upright for minimum 3 hours after meals discussed with patient. (3) Postprandial abdominal bloating: Code(s): R14.0 - Abdominal distension (gaseous) Plan: Patient reports postprandial abdominal bloating. Discussed with patient low FODMAP diet. Patient does have a list at home of food recommended as well as food to avoid. I will see patient in 6 months, sooner on as needed basis. Patient is agreeable to this plan and verbalizes understanding of instructions. She was given the opportunity to ask questions and all questions answered. Thank you for allowing me to participate in her care Orders: Orders US abdomen comp w elastography Today R79.89 - Other specified abnormal findings of blood chemistry Coding Level of Care Code Est Pt Level 3 (17203) Diagnoses Elevated liver transaminase level R74.01 GERD (gastroesophageal reflux disease) K21.9 Esophagitis presence: esophagitis presence not specified Postprandial abdominal bloating R14.0 Time Spent (min) 30 Comment 20 minutes spent with patient and additional 10 minutes spent reviewing her records
[2023-02-06 09:15] VITALS: BP 142/83; PULSE 90; BMI 34.0
== END 2023-02-06 10:05 | disposition home or self-care (01) ==
PROVIDERS: PCP Internal Medicine; Visit Provider Nurse Practitioner Family
DX: R74.01 Elevation of levels of liver transaminase levels (principal); K21.9 Gastro-esophageal reflux disease without esophagitis; R14.0 Abdominal distension (gaseous)
CPT/HCPCS: 99213

== ENCOUNTER → 2023-02-06 08:59 | Outpatient (BNVA) | payer MEDICARE, OTHER, SELFPAY | PROVIDERS: PCP Internal Medicine; Visit Provider Nurse Practitioner Family | DX: R74.01 Elevation of levels of liver transaminase levels (principal); K21.9 Gastro-esophageal reflux disease without esophagitis; R14.0 Abdominal distension (gaseous) | CPT/HCPCS: 99212 ==

== ENCOUNTER 2023-03-28 10:00 | Outpatient (REF) | payer MEDICARE, OTHER, SELFPAY ==
--- NOTE | ~2023-03-28 | US_ITS ---
EXAMINATION: US COMPLETE ABDOMEN WITH LIVER ELASTOGRAPHY CLINICAL INFORMATION: Elevated liver function tests. COMPARISON: CT abdomen and pelvis dated 02/21/2021; prior ultrasound examinations, most recently 07/09/2019. TECHNIQUE: Real-time imaging of the abdominal viscera. Noninvasive ultrasound liver fibrosis assessment is performed using Tamir ElastPQ point quantification shear wave elastography (2D-SWE) with a C5-2 MHz transducer. Multiple elastography samples are obtained. FINDINGS: PANCREAS: Normal. The visualized pancreatic head and body are normal in appearance. The remainder of the pancreas is obscured from visualization by the overlying bowel gas. ABDOMINAL AORTA: The proximal, middle, and distal aortic segments are normal in caliber. INFERIOR VENA CAVA: Visualized portions are normal. LIVER: The liver demonstrates normal size, contour and generally increased echogenicity. No focal lesion or intrahepatic biliary duct dilatation. The right lobe measures 15.5 cm in length. The left lobe measures 13.7 cm in length. Portal flow is towards the liver (hepatopetal). Shear wave liver elastography median stiffness is 1.94 m/s (reference: normal median stiffness is 1.3 m/s or less). IQR/median stiffness to assess sampling precision is 0.22 (reference: good quality data set is IQR/median stiffness of 0.15 or less). GALLBLADDER: Normal. The gallbladder is physiologically distended without evidence of stones, sludge, polyps, wall thickening or pericholecystic fluid. COMMON BILE DUCT: Normal in caliber measuring 0.6 cm in diameter. RIGHT KIDNEY: Normal. No hydronephrosis. No renal calculi or focal parenchymal lesions. The kidney measures 8.9 cm in maximum dimension. LEFT KIDNEY: Normal. No hydronephrosis. No renal calculi or focal parenchymal lesions. The kidney measures 10.4 cm in maximum dimension. SPLEEN: Normal. The spleen measures 13.2 cm in maximum dimension. FREE FLUID: None. US/US abdomen comp w elastography IMPRESSION: 1. There is generalized increase in hepatic echotexture, consistent with fatty infiltration or hepatocellular disease. Please correlate clinically. No focal hepatic mass or intrahepatic biliary dilatation is seen. 2. Liver elastography: Although measurements are suggestive of compensated advanced chronic liver disease, there is statistical variability of the sampling which decreases accuracy. 3. There is mild splenomegaly. REFERENCE: Society of Radiologists in Ultrasound Liver Stiffness Thresholds (2020): LIVER STIFFNESS THRESHOLDS: *Liver Stiffness equal or less than 1.3 m/s: High probability of being normal. *Liver Stiffness less than 1.7 m/s: In the absence of other known clinical signs, rules out compensated advanced chronic liver disease. *Liver Stiffness 1.7-2.1 m/s: Suggestive of compensated advanced chronic liver disease but need further test for confirmation. *Liver Stiffness over 2.1 m/s: Rules in compensated advanced chronic liver disease. *Liver Stiffness over 2.4 m/s: Suggestive of clinically significant portal hypertension. QUALITY OF DATA SET: *IQR/Median value equal or less than 0.15 implies a quality data set. *IQR/Median value over 0.15 implies a poor quality data set. SIGNIFICANT CHANGE FROM PRIOR EXAM: Significant change if liver stiffness measurement is 10% or greater from prior exam. OTHER CONSIDERATIONS: The stage of liver fibrosis may be overestimated in the setting of acute hepatitis, liver inflammation, elevated liver function tests, hepatic vascular congestion, obstructive cholestasis, non-fasting state, and infiltrative diseases such as amyloidosis and lymphoma. In some patients with NAFLD, the liver stiffness thresholds for compensated advanced chronic liver disease may be lower. In causes other than viral hepatitis and NAFLD, liver stiffness thresholds are not well established.
== END 2023-03-28 10:01 | disposition home or self-care (01) ==
LOC: HO.US 10:00
PROVIDERS: PCP Internal Medicine; Visit Provider Nurse Practitioner Family
DX: R79.89 Other specified abnormal findings of blood chemistry (principal)
CPT/HCPCS: 76705; 76981

== ENCOUNTER 2023-06-27 08:30 | Outpatient (REF) | payer MEDICARE, OTHER, SELFPAY ==
[2023-06-27 12:09] LABS: Alanine Aminotransferase 76 U/L (0-31); Albumin Level 4.1 g/dL (3.5-5.0); Alkaline Phosphatase 146 U/L (39-117); Aspartate Amino Transferase 137 U/L (5-31); Bilirubin Direct 0.2 mg/dL (0.0-0.5); Bilirubin Total 0.7 mg/dL (0.0-1.0); Total Protein 7.3 g/dL (6.5-8.0)
== END 2023-06-27 08:31 | disposition home or self-care (01) ==
LOC: HO.HMGCLDS 08:30
PROVIDERS: PCP Internal Medicine; Visit Provider Nurse Practitioner Family
DX: R74.01 Elevation of levels of liver transaminase levels (principal)
CPT/HCPCS: 36415; 80076